=== PATIENT | male | born 1980 | race Caucasian/White ===

== ENCOUNTER 2017-08-18 03:42 | Inpatient (IN) | payer BC, OTHER ==
[2017-08-18] VITALS (58 sets, daily range): BP systolic 116–184; BP diastolic 64–111
[~2017-08-18] VITALS: Ht 165.1 cm; Wt 103.0 kg
[~2017-08-18 03:42] MED LIST: ACEBUTOLOL HCL200 MG PO; AMLODIPINE BESYL5 MG PO; CLONIDINE HCL0.1 MG PO; DOXYCYCLINE HY100 MG PO; GLIMEPIRIDE2 MG PO; IRBESARTAN-HCT1 EAC1 PO; LEVAQUIN500 MG PO; LOSARTAN POTAS100 MG PO; METFORMIN HCL500 MG PO; MULTI-VITAMIN1 EACH PO; TRICOR145 MG PO; VITAMIN D2000 UNIT PO
[2017-08-18] MEDS ORDERED: SODIUM CHLORIDE 0.9% 1000ML 1,000 ML IV STA (03:48)
[2017-08-18] MEDS ORDERED: HYDRALAZINE HCL 20 MG/ML VIAL IV STA (03:54)
[2017-08-18] MEDS ORDERED: ASPIRIN 81 MG CHEW TAB PO ONE (04:00)
[2017-08-18] MEDS ORDERED: METOPROLOL TARTRATE INJ 1 MG/ML VIAL ONE (04:12)
[2017-08-18] MEDS ORDERED: ACETAMINOPHEN 325 MG TAB ONE (04:13)
[2017-08-18] MEDS ORDERED: METOPROLOL TARTRATE INJ 1 MG/ML VIAL IV ONE (04:15)
[2017-08-18] MEDS ORDERED: ACETAMINOPHEN 325 MG TAB PO ONE (04:15)
[2017-08-18 04:21] LABS: BASOPHILS # (AUTO) 0.1 (0.0-0.1); BASOPHILS % 0.4 % (0.0-1.0); EOSINOPHILS # (AUTO) 0.1 (0.0-0.4); EOSINOPHILS % 0.7 % (0.0-6.0); HEMATOCRIT 33.8 % (38.2-49.6); HEMOGLOBIN 12.4 g/dL (14.0-18.0); LYMPHOCYTES # (AUTO) 1.1 (1.0-3.2); LYMPHOCYTES % 8.9 % (18.0-39.1); MEAN CORPUSCULAR HEMOGLOBIN 31.4 pg (28-32); MEAN CORPUSCULAR HGB CONC 36.7 g/dL (31-35); MEAN CORPUSCULAR VOLUME 85.6 fL (81-99); MONOCYTES # (AUTO) 0.5 (0.2-0.8); MONOCYTES % 3.9 % (4.4-11.3); NEUTROPHILS # (AUTO) 10.4 (2.1-6.9); NEUTROPHILS % 85.7 % (38.7-80.0); PLATELET COUNT 158 x10e3/uL (140-360); RED BLOOD COUNT 3.95 x10e6/uL (4.3-5.7); RED CELL DISTRIBUTION WIDTH 13.5 % (11.7-14.4)
[2017-08-18 04:25] LABS: ALBUMIN 3.2 g/dL (3.5-5.0); ALBUMIN/GLOBULIN RATIO 0.5 (0.8-2.0); ANION GAP 18.1 mmol/L (8-16); CALCIUM 9.2 mg/dL (8.4-10.2); CREATININE, SERUM 1.98 mg/dL (0.72-1.25); POTASSIUM 4.1 mmol/L (3.5-5.1)
[2017-08-18 04:31] LABS: CREATINE KINASE MB 0.9 ng/mL (0-5.0)
[2017-08-18 04:37] LABS: ABG HCO3 23 mmol/L (23-28); ABG PCO2 33 mmHg (41-51); ABG PH 7.45 (7.31-7.41); ABG PO2 64 mmHg (80-105)
[2017-08-18 05:20] LABS: COLOR,URINE YELLOW (YELLOW)
[2017-08-18 05:21] LABS: BILIRUBIN,URINE NEGATIVE (NEGATIVE); CLARITY,URINE CLEAR (CLEAR); KETONES,URINE NEGATIVE (NEGATIVE); LEUKOCYTE ESTERASE ,URINE NEGATIVE (NEGATIVE); NITRITE,URINE NEGATIVE (NEGATIVE); PROTEIN,URINE DIPSTICK 3+ (NEGATIVE); URINE UROBILINOGEN 0.2 mg/dL (0.2 - 1)
--- NOTE | 2017-08-18 05:21 | Diagnostic Imaging Report ---
EXAMINATION: CHEST SINGLE (PORTABLE) INDICATION: Hyperglycemia COMPARISON: 01/20/2017 FINDINGS: TUBES and LINES: None. LUNGS: Lungs are well inflated. Lungs are clear. There is no evidence of pneumonia or pulmonary edema. PLEURA: No pleural effusion or pneumothorax. HEART AND MEDIASTINUM: The cardiomediastinal silhouette is unremarkable. BONES AND SOFT TISSUES: No acute osseous lesion. Soft tissues are unremarkable. UPPER ABDOMEN: No free air under the diaphragm. IMPRESSION: No acute thoracic abnormality. Signed by: Dr. Cuba Smith M.D. on 08/18/2017 5:18 AM
[2017-08-18 05:23] LABS: EPITHELIAL CELLS,URINE FEW /LPF; RBC,URINE 0-5 /HPF (0-5); WBC,URINE (MAN) 0-5 /HPF (0-5)
[2017-08-18] MEDS ORDERED: SODIUM CHLORIDE 0.9% 1000ML 1,000 ML IV SCH (05:30)
[2017-08-18] MEDS ORDERED: DEXTROSE 5%/0.45% SOD CHL 1,000 ML IV SCH (06:48)
[2017-08-18] MEDS ORDERED: POTASSIUM CHLORIDE 20MEQ/100ML 200 ML IV PRN (07:00)
[2017-08-18] MEDS ORDERED: INSULIN DETEMIR 100 UNIT/ML PEN SQ PRN (07:00)
--- NOTE | 2017-08-18 07:11 | Diagnostic Imaging Report ---
EXAM: CT Abdomen and Pelvis WITH contrast INDICATION: Abdominal pain COMPARISON: None. TECHNIQUE: Abdomen and pelvis were scanned utilizing a multidetector helical scanner from the lung base to the pubic symphysis after administration of IV contrast. Coronal and sagittal reformations were obtained. Routine protocol was performed. Scan was performed when during portal venous phase. IV CONTRAST: 100 mL of Isovue-370 ORAL CONTRAST: Water RADIATION DOSE: Total DLP: 812.15 mGy*cm Estimated effective dose: (DLP x 0.015 x size factor) mSv COMPLICATIONS: None FINDINGS: LINES and TUBES: None. LOWER THORAX: Unremarkable HEPATOBILIARY: The liver is diffuse hypodense compared to the spleen, consistent with diffuse hepatic diffuse hepatic steatosis. No focal hepatic lesions. No biliary ductal dilation. GALLBLADDER: No radio-opaque stones or sludge. No wall thickening. SPLEEN: No splenomegaly. PANCREAS: No focal masses or ductal dilatation. ADRENALS: No adrenal nodules KIDNEYS/URETERS: Kidneys enhance symmetrically. No hydronephrosis. No cystic or solid mass lesions. No stones. GI TRACT: No abnormal distention, wall thickening, or evidence of bowel obstruction. Appendix is normal. PELVIC ORGANS/BLADDER: Unremarkable. LYMPH NODES: No lymphadenopathy. VESSELS: Unremarkable. PERITONEUM / RETROPERITONEUM: No free air or fluid. BONES: Unremarkable. SOFT TISSUES: Umbilical fat-containing hernia best seen on series 2, image 52 IMPRESSION: 1. No evidence of acute intra-abdominal or pelvic abnormality. 2. Fat-containing umbilical hernia. 3. Diffuse hepatic steatosis. Signed by: Dr. Cuba Smith M.D. on 08/18/2017 7:07 AM
[2017-08-18] MEDS ORDERED: SODIUM CHLORIDE 0.9% 50ML 50 ML ONE (07:12)
[2017-08-18] MEDS ORDERED: IOPAMIDOL 370 MG/ML 200 ML INFUS..BTL INJ ONE (07:12)
[2017-08-18] MEDS: SODIUM CHLORIDE 0.9% 1000ML 1,000 ML IV SCH ×2 (07:27→10:55)
[2017-08-18] MEDS ORDERED: CEFTRIAXONE SOD 1 GM VIAL IV SCH (07:30)
[2017-08-18] MEDS ORDERED: INSULIN REGULAR, HUMAN 3ML VL 100 UNIT in SODIUM CHLORIDE 0.9% 99 ML IV SCH ×2 (07:45)
[2017-08-18 09:06] LABS: ANION GAP 14.3 mmol/L (8-16); CALCIUM 8.4 mg/dL (8.4-10.2); CREATININE, SERUM 1.77 mg/dL (0.72-1.25); MAGNESIUM 1.6 MG/DL (1.3-2.1); POTASSIUM 3.3 mmol/L (3.5-5.1)
[2017-08-18] MEDS ORDERED: POTASSIUM CHLORIDE 20 MEQ TAB CR PO NR (11:00)
[2017-08-18] MEDS: ACETAMINOPHEN 325 MG TAB PO PRN ×3 (12:00→23:51)
[2017-08-18] MEDS ORDERED: ACETAMINOPHEN 325 MG TAB PO PRN (12:15)
[2017-08-18 12:50] LABS: ANION GAP 14.6 mmol/L (8-16); CALCIUM 8.4 mg/dL (8.4-10.2); CREATININE, SERUM 1.77 mg/dL (0.72-1.25); MAGNESIUM 1.6 MG/DL (1.3-2.1); POTASSIUM 3.6 mmol/L (3.5-5.1)
[2017-08-18] MEDS ORDERED: DEXTROSE 50% SYRINGE 50 ML IV PRN (14:00)
[2017-08-18] MEDS: INSULIN REGULAR, HUMAN 3ML VL 100 UNIT in SODIUM CHLORIDE 0.45% 100 ML 100 ML IV SCH ×2 (14:20)
[2017-08-18 14:26] LABS: CREATINE KINASE MB 0.5 ng/mL (0-5.0)
[2017-08-18] MEDS ORDERED: MAGNESIUM SULF 1GRAM/DEXTROSE 100 ML IV ONE (14:34)
[2017-08-18] MEDS: MAGNESIUM SULF 1GRAM/DEXTROSE 100 ML IV PRN (14:40)
[2017-08-18 14:41] LABS: FREE T4 (FREE THYROXINE) 0.97 ng/dL (0.9-1.8); THYROID STIMULATING HORMONE 1.782 uIU/mL (0.350-4.940)
--- NOTE | 2017-08-18 14:41 | Consultation ---
DATE OF CONSULTATION: August 18, 2017 ENDOCRINE CONSULTATION Thank you very much for referring this patient. This is a 37-year-old white male gentleman who is a known diabetic for almost 5 years and takes oral hypoglycemics at home. He was on insulin in the past and he had a similar episode of nausea and vomiting about 6 months back. This time the patient came to the hospital because of chest pain and nausea. On further evaluation, his blood sugar was 390 and anion gap was slightly elevated. His lactic acid level was also high. The patient tells me that he was lately all right and after dropping his daughter, he came home and he started having nausea and chest pain and reported to the emergency room. He has history of hypertension and hyperlipidemia. The patient takes a combination of oral hypoglycemics, glimepiride and the metformin at home. PHYSICAL EXAMINATION: GENERAL: Today, the patient is alert, awake and a little bit apprehensive. He is moderate to morbidly obese. VITAL SIGNS: Around 100. Blood pressure is 155 x 90 mmHg. HEENT: Essentially unremarkable. NECK: Thyroid is palpable. Clinically, he is near euthyroid. CHEST: Bilateral vesicular breathing. He has mild bronchospasm. CARDIAC: Both 1st and 2nd heart sounds. There is no 3rd or 4th heart sound. Ejection sound is grade 2/6. The patient also has mild pedal edema. CLINICAL IMPRESSION: 1. Diabetes mellitus type 2, uncontrolled with complications. 2. Mild diabetic ketoacidosis. 3. Hypertension. 4. Hyperlipidemia. PLAN: The plan at this time is to taper off the insulin drip slowly. His lactic acid levels are also elevated. The plan at this time is to taper off the insulin drip slowly and also start him on the subcutaneous insulin and cut down the IV fluids. Thanks for referring this patient. I will following this patient with you. Job#: [id number]
[2017-08-18] MEDS ORDERED: ONDANSETRON HCL INJ 2 MG/ML VIAL IV ONE (16:37)
[2017-08-18] MEDS ORDERED: ONDANSETRON HCL INJ 2 MG/ML VIAL ONE (16:40)
[2017-08-18] MEDS ORDERED: AMLODIPINE BESYLATE 5 MG TAB PO SCH (16:45)
[2017-08-18 16:55] LABS: ANION GAP 12.8 mmol/L (8-16); CALCIUM 8.6 mg/dL (8.4-10.2); CREATININE, SERUM 1.81 mg/dL (0.72-1.25); MAGNESIUM 1.7 MG/DL (1.3-2.1); POTASSIUM 3.8 mmol/L (3.5-5.1)
[2017-08-18] MEDS ORDERED: INSULIN DETEMIR 100 UNIT/ML PEN SQ SCH (17:00)
[2017-08-18 19:16] LABS: CREATINE KINASE MB 0.4 ng/mL (0-5.0)
[2017-08-18] MEDS: VANCOMYCIN 1GM/NS 250 ML 250 ML IV SCH (21:00)
[2017-08-18] MEDS: CEFEPIME HCL 1 GM VIAL IV SCH (21:00)
[2017-08-18 21:17] LABS: ANION GAP 12.5 mmol/L (8-16); CALCIUM 8.3 mg/dL (8.4-10.2); CREATININE, SERUM 1.81 mg/dL (0.72-1.25); MAGNESIUM 1.4 MG/DL (1.3-2.1); POTASSIUM 3.5 mmol/L (3.5-5.1)
--- NOTE | 2017-08-18 21:39 | Consultation ---
DATE OF CONSULTATION: August 18, 2017 CARDIOLOGY CONSULTATION REFERRING PHYSICIAN: Dr. Aguilar. REASON FOR CONSULTATION: Tachycardia, hypertension, chest pain. HISTORY OF PRESENT ILLNESS: This is a 37-year-old man with a history of obesity, diabetes mellitus on oral hypoglycemics, hyperlipidemia, prior episode of cellulitis, who presented to the emergency department with nausea, vomiting, chest discomfort and elevated glucose levels. Patient states that he had his daughter yesterday and after having a birthday green party returned her to the daughter's mother. He was concerned with getting his daughter back home promptly and forgot to take some of his medications. He states that he ate [place] food, then later on that evening developed abdominal discomfort, nausea with subsequent vomiting and an unwell feeling which prompted him to seek medical attention. Patient states also that he developed left-sided pain around the collarbone area, occasionally worse with exertion, better with rest, worse with certain movements. He also states that he gets occasional right-sided pain which he describes as a sharp needle-like pain which is occasionally worse with exertion at home. He has no prior cardiac testing or history of myocardial infarctions, heart failure, valvular heart disease or arrhythmias. He does not smoke, and his family members do not have premature coronary artery disease. Upon arrival here, the patient was noted to be hyperglycemic with mild diabetic ketoacidosis, and his left lower extremity was treated for cellulitis. REVIEW OF SYSTEMS: A 12-point review of systems was conducted as negative otherwise as above in HPI. PAST MEDICAL HISTORY: Hypertension, hyperlipidemia, diabetes mellitus, obesity. PAST SURGICAL HISTORY: No significant recent surgeries. FAMILY HISTORY: No premature CAD or sudden cardiac . SOCIAL HISTORY: No illicit drug use, alcohol use, tobacco use. ALLERGIES: NO KNOWN DRUG ALLERGIES. MEDICATIONS: Please see medication reconciliation form. Patient currently on acebutolol, amlodipine, glimepiride, irbesartan, hydrochlorothiazide. PHYSICAL EXAMINATION VITAL SIGNS: Heart rate is 118. Respirations are 18. Blood pressure is 131/87. Oxygen saturation 100% on room air. Temperature is 100.7. GENERALLY: He is a well-appearing obese man lying comfortably in bed. HEAD: Normocephalic, atraumatic. EYES: The extraocular muscles are intact. Conjunctiva is clear. NECK: No jugular venous distention. No bruits. CARDIOVASCULAR: He is tachycardic, regular rhythm. No murmurs. LUNGS: Clear to auscultation bilaterally. No wheezing, no rales. ABDOMEN: Soft, nontender, nondistended. Normoactive bowel sounds. EXTREMITIES: No clubbing, cyanosis, and there is 1+ pitting edema. SKIN: There is erythema over the left lower extremity. NEUROLOGIC: No focal deficits noted. Cranial nerves grossly intact. PSYCHIATRIC: Normal mood and affect. All laboratory data were reviewed, show a sodium 137, potassium of 3.6, creatinine of 1.77, glucose of 131. Troponin I is 0.033. TSH is 1.7. White blood cell count is 12.18, hemoglobin is 12.4. ABGs showed a pH of 7.45. Urinalysis showed protein and glucose. A 12-lead electrocardiogram showed sinus tachycardia. Chest x-ray showed no acute cardiopulmonary abnormalities. CT of the abdomen and pelvis showed no acute intra-abdominal or pelvic abnormality, a fat-containing umbilical hernia and a diffuse hepatic steatosis. IMPRESSION/RECOMMENDATIONS 1. Diabetic ketoacidosis. Patient was started on insulin infusion with correction of his anion gap. Treatment per Endocrinology and primary team. 2. Hypertensive urgency. The patient presented with systolic blood pressures greater than 200. He is on multiple-antihypertensive regimen at home. Will avoid his angiotensin-receptor tian and diuretic at this point in time given acute kidney injury. We can titrate amlodipine and beta blockers for better heart rate control and blood pressure lowering effect. 3. Hyperlipidemia. Will check a lipid panel and start statin medications if indicated. 4. Abnormal electrocardiogram. Patient's electrocardiogram showed sinus tachycardia. Will continue to treat fever and diabetic ketoacidosis. Will also restart his beta tian therapies as he is able to tolerate. 5. Diabetes mellitus. Treatment per primary team. 6. Obesity. Patient will likely need extensive nutrition support, diet and exercise for weight loss. 7. Precordial pain. Patient has atypical symptoms of chest pain. One set of cardiac enzymes was within normal limits, and his 12-lead electrocardiogram showed sinus tachycardia. Once his heart rate is better controlled, will check an echocardiogram whether inpatient versus outpatient. Patient likely will need an outpatient stress test if his cardiac enzymes remain within normal limits. I would like to thank Dr. Aguilar for allowing me to assist in Mr. Alonso's care. Will restart antihypertensives, which will be nonnephrotoxic. Will consider checking an echocardiogram once his heart rate is improved. Job#: [id number] EV
[2017-08-19] VITALS (82 sets, daily range): BP systolic 119–175; BP diastolic 57–125
[2017-08-19] MEDS: DEXTROSE 5%/0.45% SOD CHL 1,000 ML IV SCH ×3 (01:00→19:52)
[2017-08-19] MEDS: ACETAMINOPHEN 325 MG TAB PO PRN ×2 (04:06→19:43)
[2017-08-19] MEDS ORDERED: ENOXAPARIN SODIUM INJ 100 MG/ML SYR SC ONE (05:00)
[2017-08-19] MEDS: ENOXAPARIN SODIUM INJ 100 MG/ML SYR SC SCH ×2 (05:20→19:52)
[2017-08-19 05:50] LABS: BASOPHILS % 0.3 % (0.0-1.0); EOSINOPHILS % 0.2 % (0.0-6.0); HEMATOCRIT 31.3 % (38.2-49.6); LYMPHOCYTES # (AUTO) 0.6 (1.0-3.2); LYMPHOCYTES % 6.1 % (18.0-39.1); MEAN CORPUSCULAR HEMOGLOBIN 30.7 pg (28-32); MEAN CORPUSCULAR HGB CONC 35.1 g/dL (31-35); MEAN CORPUSCULAR VOLUME 87.4 fL (81-99); MONOCYTES # (AUTO) 0.6 (0.2-0.8); MONOCYTES % 6.3 % (4.4-11.3); NEUTROPHILS # (AUTO) 8.2 (2.1-6.9); NEUTROPHILS % 86.7 % (38.7-80.0); PLATELET COUNT 132 x10e3/uL (140-360); RED BLOOD COUNT 3.58 x10e6/uL (4.3-5.7); RED CELL DISTRIBUTION WIDTH 13.6 % (11.7-14.4)
[2017-08-19 06:19] LABS: ALBUMIN 2.2 g/dL (3.5-5.0); ALBUMIN/GLOBULIN RATIO 0.6 (0.8-2.0); ANION GAP 10.4 mmol/L (8-16); CALCIUM 8.5 mg/dL (8.4-10.2); CREATININE, SERUM 1.92 mg/dL (0.72-1.25); POTASSIUM 3.4 mmol/L (3.5-5.1)
[2017-08-19] MEDS ORDERED: MAGNESIUM SULF 1GRAM/DEXTROSE 100 ML IV ONE (06:43)
[2017-08-19] MEDS: MAGNESIUM SULF 1GRAM/DEXTROSE 100 ML IV PRN (06:46)
[2017-08-19 06:59] LABS: CREATINE KINASE MB 0.4 ng/mL (0-5.0)
[2017-08-19] MEDS: VANCOMYCIN 1GM/NS 250 ML 250 ML IV SCH ×2 (08:30→20:37)
[2017-08-19] MEDS: CEFEPIME HCL 1 GM VIAL IV SCH ×2 (08:30→19:52)
[2017-08-19] MEDS: AMLODIPINE BESYLATE 10 MG TAB PO SCH (13:34)
[2017-08-19] MEDS: METOPROLOL TARTRATE 25 MG TAB PO SCH ×2 (17:20→20:26)
[2017-08-19] MEDS: INSULIN DETEMIR 100 UNIT/ML PEN SQ SCH (17:30)
[2017-08-19] MEDS: LABETALOL HCL 5 MG/ML 20ML VIAL IV PRN (17:32)
[2017-08-19] MEDS ORDERED: HYDROCODONE/APAP 5MG-325MG TAB PO ONE (20:30)
[2017-08-19] MEDS: INSULIN REGULAR, HUMAN 3ML VL 100 UNIT in SODIUM CHLORIDE 0.45% 100 ML 100 ML IV SCH ×2 (23:21)
[2017-08-19] MEDS: HYDROCODONE/APAP 5MG-325MG TAB PO PRN (23:23)
[2017-08-19] MEDS ORDERED: ONDANSETRON HCL INJ 2 MG/ML VIAL IV PRN (23:30)
[2017-08-20] VITALS (25 sets, daily range): BP systolic 116–163; BP diastolic 73–107
[2017-08-20] MEDS: LABETALOL HCL 5 MG/ML 20ML VIAL IV PRN (02:19)
[2017-08-20] MEDS: DEXTROSE 5%/0.45% SOD CHL 1,000 ML IV SCH ×2 (05:14→11:45)
[2017-08-20] MEDS: HYDROCODONE/APAP 5MG-325MG TAB PO PRN (05:14)
[2017-08-20 06:30] LABS: ANION GAP 12.4 mmol/L (8-16); CALCIUM 8.6 mg/dL (8.4-10.2); CREATININE, SERUM 1.77 mg/dL (0.72-1.25); POTASSIUM 3.4 mmol/L (3.5-5.1)
[2017-08-20 07:41] LABS: BASOPHILS % 0.6 % (0.0-1.0); EOSINOPHILS # (AUTO) 0.1 (0.0-0.4); EOSINOPHILS % 1.3 % (0.0-6.0); HEMATOCRIT 31.4 % (38.2-49.6); HEMOGLOBIN 11.1 g/dL (14.0-18.0); LYMPHOCYTES # (AUTO) 1.2 (1.0-3.2); MEAN CORPUSCULAR HEMOGLOBIN 30.7 pg (28-32); MEAN CORPUSCULAR HGB CONC 35.4 g/dL (31-35); MONOCYTES # (AUTO) 0.6 (0.2-0.8); MONOCYTES % 8.2 % (4.4-11.3); NEUTROPHILS # (AUTO) 5.3 (2.1-6.9); NEUTROPHILS % 73.6 % (38.7-80.0); PLATELET COUNT 142 x10e3/uL (140-360); RED BLOOD COUNT 3.61 x10e6/uL (4.3-5.7); RED CELL DISTRIBUTION WIDTH 13.7 % (11.7-14.4)
[2017-08-20] MEDS: CEFEPIME HCL 1 GM VIAL IV SCH ×2 (08:22→20:55)
[2017-08-20] MEDS: VANCOMYCIN 1GM/NS 250 ML 250 ML IV SCH (08:22)
[2017-08-20] MEDS: METOPROLOL TARTRATE 25 MG TAB PO SCH ×3 (09:00→20:56)
[2017-08-20] MEDS: AMLODIPINE BESYLATE 10 MG TAB PO SCH (09:38)
[2017-08-20] MEDS: ENOXAPARIN SODIUM INJ 100 MG/ML SYR SC SCH ×2 (09:38→20:58)
[2017-08-20] MEDS: INSULIN DETEMIR 100 UNIT/ML PEN SQ SCH ×2 (09:39→16:42)
[2017-08-20] MEDS ORDERED: INSULIN LISPRO 100 UNIT/1 ML 3ML VIAL SQ ONE (13:45)
--- NOTE | 2017-08-20 14:18 | Consultation ---
DATE OF CONSULTATION: REASON FOR CONSULTATION: Cellulitis of the leg and sepsis present on admission secondary to cellulitis of the leg. Mr. Garcia, who is a very pleasant 57-year-old white male with a history of diabetes mellitus, history of obesity, hyperlipidemia, history cellulitis before comes in with a 1-day history of not feeling well, fever and chills. The patient came to the emergency room. He was admitted on August 18, 2017. Patient has been on antibiotics since then. He was telling me yesterday, which was August 19, 2017, continued to have fever and chills, but today he started feeling a little bit better. His blood cultures have been negative. He said his leg is red and swollen, but he thinks it is better today also. PAST MEDICAL HISTORY: Diabetes mellitus, hypertension and obesity. PAST SURGICAL HISTORY: Denies. ALLERGIES: NKA. SOCIAL HISTORY: There is no smoking, drug abuse or alcohol abuse. FAMILY HISTORY: Hypertension and diabetes. REVIEW OF SYSTEMS HEENT: Negative. PULMONARY: Negative. CARDIAC: Negative. : Negative. GI: Negative. PHYSICAL EXAMINATION GENERAL: He is currently alert and oriented. Does not seem in acute distress. VITALS: Stable. Currently afebrile. HEENT: Nonicteric. NECK: Supple. CHEST: Clear. HEART: S1 and S2. No murmur. ABDOMEN: Soft. Bowel sounds present. No tenderness. EXTREMITIES: The left leg has erythema and edema from the ankle all the way to above the knee. Lab data reviewed. White count on admission was 12.18, hemoglobin 12. Sodium 134, potassium 3.4, creatinine 1.77, glucose 194. IMPRESSION 1. Sepsis, present on admission: Source is cellulitis of the leg. Pathogen is unknown, probably streptococcus or staphylococcus,. 2. Acute kidney injury: Probably underlying chronic kidney disease. 3. Diabetes mellitus. 4. Obesity. Agree with vancomycin. The trough was low, but I am concerned about his kidney function. Will continue with the current dose and obtain vancomycin trough. He is also on cefepime. Will recheck CBC. Recheck Chem panel. Will follow. Job#: [id number] RI
[2017-08-20] MEDS: INSULIN LISPRO 100 UNIT/1 ML 3ML VIAL SQ SCH ×3 (16:41→20:58)
[2017-08-20] MEDS: VANCOMYCIN HCL 1.5 GM in SODIUM CHLORIDE 0.9% 250ML 300 ML IV SCH (21:21)
[2017-08-21] VITALS (7 sets, daily range): BP systolic 129–157; BP diastolic 87–102
[2017-08-21] MEDS: DEXTROSE 5%/0.45% SOD CHL 1,000 ML IV SCH ×3 (01:38→15:14)
[2017-08-21] MEDS: INSULIN DETEMIR 100 UNIT/ML PEN SQ SCH ×2 (08:03→16:08)
[2017-08-21] MEDS: INSULIN LISPRO 100 UNIT/1 ML 3ML VIAL SQ SCH ×7 (08:03→21:00)
[2017-08-21] MEDS: VANCOMYCIN HCL 1.5 GM in SODIUM CHLORIDE 0.9% 250ML 300 ML IV SCH ×2 (09:01→21:00)
[2017-08-21] MEDS: ENOXAPARIN SODIUM INJ 100 MG/ML SYR SC SCH ×3 (09:01→23:54)
[2017-08-21] MEDS: CEFEPIME HCL 1 GM VIAL IV SCH ×2 (09:01→21:00)
[2017-08-21] MEDS: METOPROLOL TARTRATE 25 MG TAB PO SCH ×2 (09:01→21:00)
[2017-08-21] MEDS: AMLODIPINE BESYLATE 10 MG TAB PO SCH (09:02)
[2017-08-21 14:30] LABS: ANION GAP 11.6 mmol/L (8-16); CALCIUM 9.6 mg/dL (8.4-10.2); CREATININE, SERUM 1.81 mg/dL (0.72-1.25); POTASSIUM 3.6 mmol/L (3.5-5.1)
[2017-08-22] VITALS (10 sets, daily range): BP systolic 125–161; BP diastolic 64–102
[2017-08-22] MEDS: DEXTROSE 5%/0.45% SOD CHL 1,000 ML IV SCH ×3 (02:50→22:30)
[2017-08-22] MEDS: INSULIN LISPRO 100 UNIT/1 ML 3ML VIAL SQ SCH ×7 (07:30→20:30)
[2017-08-22] MEDS: METOPROLOL TARTRATE 25 MG TAB PO SCH ×2 (08:36→20:02)
[2017-08-22] MEDS: CEFEPIME HCL 1 GM VIAL IV SCH ×2 (08:36→20:02)
[2017-08-22] MEDS: AMLODIPINE BESYLATE 10 MG TAB PO SCH (08:36)
[2017-08-22] MEDS: ENOXAPARIN SODIUM INJ 100 MG/ML SYR SC SCH ×3 (08:36→20:20)
[2017-08-22] MEDS: INSULIN DETEMIR 100 UNIT/ML PEN SQ SCH ×2 (08:38→20:30)
[2017-08-22] MEDS: VANCOMYCIN HCL 1.5 GM in SODIUM CHLORIDE 0.9% 250ML 300 ML IV SCH ×2 (11:30→20:03)
--- NOTE | 2017-08-22 11:31 | Diagnostic Imaging Report ---
PROCEDURE: A single AP view of the chest. COMPARISON: Chest radiograph 08/18/2017 INDICATIONS: PICC LINE PLACEMENT FINDINGS: Lines/tubes: Left upper extremity PICC with tip projecting over the cavoatrial junction. Lungs: The lungs are well inflated and clear. There is no evidence of pneumonia or pulmonary edema. Pleura: There is no pleural effusion or pneumothorax. Heart and mediastinum: The heart and the mediastinum are unremarkable. Bones: No acute bony abnormality. IMPRESSION: 1. Left upper extremity PICC with tip projecting over the cavoatrial junction. 2. No acute cardiopulmonary disease. Dictated by: Donavon Olvera M.D. on 08/22/2017 at 11:35 Electronically approved by: Donavon Olvera M.D. on 08/22/2017 at 11:35
[2017-08-22] MEDS ORDERED: INSULIN DETEMIR 100 UNIT/ML PEN SQ SCH (17:00)
[2017-08-22] MEDS: LABETALOL HCL 5 MG/ML 20ML VIAL IV PRN ×2 (17:36→23:47)
[2017-08-23] VITALS (7 sets, daily range): BP systolic 124–151; BP diastolic 66–97
[2017-08-23] MEDS: INSULIN DETEMIR 100 UNIT/ML PEN SQ SCH ×2 (08:20→20:39)
[2017-08-23] MEDS: INSULIN LISPRO 100 UNIT/1 ML 3ML VIAL SQ SCH ×7 (08:20→20:39)
[2017-08-23] MEDS: CEFEPIME HCL 1 GM VIAL IV SCH ×2 (08:21→20:30)
[2017-08-23] MEDS: METOPROLOL TARTRATE 25 MG TAB PO SCH ×2 (08:21→20:38)
[2017-08-23] MEDS: AMLODIPINE BESYLATE 10 MG TAB PO SCH (08:22)
[2017-08-23] MEDS: DEXTROSE 5%/0.45% SOD CHL 1,000 ML IV SCH (08:22)
[2017-08-23] MEDS: ENOXAPARIN SODIUM INJ 100 MG/ML SYR SC SCH (08:23)
[2017-08-23] MEDS: VANCOMYCIN HCL 1.5 GM in SODIUM CHLORIDE 0.9% 250ML 300 ML IV SCH ×2 (09:13→20:37)
[2017-08-23] MEDS: METRONIDAZOLE 500MG/NS 100ML 100 ML IV SCH ×2 (14:09→22:47)
[2017-08-23] MEDS ORDERED: DOCUSATE SODIU100 MG PO (14:54)
[2017-08-23] MEDS ORDERED: CLONIDINE HCL0.1 MG PO (14:54)
[2017-08-23] MEDS ORDERED: ASPIR 8181 MG (14:54)
[2017-08-23] MEDS ORDERED: CALCIUM CARBON500 MG PO (14:54)
[2017-08-23] MEDS ORDERED: DILANTIN100 MG (14:54)
[2017-08-23] MEDS ORDERED: BUMETANIDE1 MG PO (14:54)
[2017-08-23] MEDS ORDERED: LEVETIRACETAM500 MG (14:54)
[2017-08-23] MEDS ORDERED: CLOPIDOGREL75 MG PO (14:54)
[2017-08-23] MEDS ORDERED: FLECTOR1 EACH (14:54)
[2017-08-23] MEDS ORDERED: LABETALOL HCL200 MG PO (14:54)
[2017-08-23] MEDS ORDERED: CALCIUM ACETAT667 MG PO (14:54)
[2017-08-23] MEDS ORDERED: KEPPRA500 MG PO (14:54)
[2017-08-23] MEDS ORDERED: ATORVASTATIN CA10 MG PO (14:54)
[2017-08-23] MEDS ORDERED: HYDRALAZINE HCL10 MG PO (14:54)
[2017-08-23] MEDS ORDERED: LOSARTAN POTAS100 MG PO (15:04)
[2017-08-23] MEDS ORDERED: METOLAZONE5 MG PO (15:04)
[2017-08-23] MEDS ORDERED: LORAZEPAM0.5 MG PO (15:04)
[2017-08-23] MEDS ORDERED: PEPCID20 MG (15:04)
[2017-08-23] MEDS ORDERED: NOVOLOG100 UNITS1 (15:04)
[2017-08-23] MEDS ORDERED: OXYCODONE HCL20 M1 PO (15:04)
[2017-08-23] MEDS ORDERED: TRANSDERM-SCOP1 EACH TD (15:04)
[2017-08-23] MEDS ORDERED: ZOFRAN ODT4 MG (15:04)
[2017-08-23] MEDS ORDERED: MILK OF MA2400 MG/10 (15:04)
[2017-08-24] VITALS: BP 185/96
[2017-08-24] MEDS: LABETALOL HCL 5 MG/ML 20ML VIAL IV PRN (01:07)
[2017-08-24 04:00] VITALS: BP 132/75
[2017-08-24 05:47] LABS: BASOPHILS # (AUTO) 0.1 (0.0-0.1); EOSINOPHILS # (AUTO) 0.2 (0.0-0.4); HEMATOCRIT 30.9 % (38.2-49.6); HEMOGLOBIN 10.8 g/dL (14.0-18.0); LYMPHOCYTES # (AUTO) 1.5 (1.0-3.2); LYMPHOCYTES % 18.7 % (18.0-39.1); MEAN CORPUSCULAR HEMOGLOBIN 30.6 pg (28-32); MEAN CORPUSCULAR VOLUME 87.5 fL (81-99); MONOCYTES # (AUTO) 0.5 (0.2-0.8); MONOCYTES % 6.5 % (4.4-11.3); NEUTROPHILS # (AUTO) 5.2 (2.1-6.9); NEUTROPHILS % 66.9 % (38.7-80.0); PLATELET COUNT 218 x10e3/uL (140-360); RED BLOOD COUNT 3.53 x10e6/uL (4.3-5.7); RED CELL DISTRIBUTION WIDTH 13.2 % (11.7-14.4)
[2017-08-24] MEDS: METRONIDAZOLE 500MG/NS 100ML 100 ML IV SCH (05:58)
[2017-08-24 06:16] LABS: ALBUMIN 2.2 g/dL (3.5-5.0); ALBUMIN/GLOBULIN RATIO 0.6 (0.8-2.0); ANION GAP 12.5 mmol/L (8-16); CALCIUM 8.8 mg/dL (8.4-10.2); CREATININE, SERUM 1.58 mg/dL (0.72-1.25); MAGNESIUM 1.5 MG/DL (1.3-2.1); POTASSIUM 3.5 mmol/L (3.5-5.1)
[2017-08-24] MEDS: INSULIN LISPRO 100 UNIT/1 ML 3ML VIAL SQ SCH ×4 (08:00→12:00)
[2017-08-24 08:17] LABS: LYMPHOCYTES % (MANUAL) 18 % (19-48); MONOCYTES % (MANUAL) 5 % (3.4-9.0); NEUTROPHILS % (MANUAL) 77 % (40-74); PLATELET ESTIMATE ADEQUATE; PLATELET MORPHOLOGY COMMENT NORMAL; RBC MORPHOLOGY COMMENT NORMAL
[2017-08-24] MEDS: VANCOMYCIN HCL 1.5 GM in SODIUM CHLORIDE 0.9% 250ML 300 ML IV SCH (08:42)
[2017-08-24] MEDS: INSULIN DETEMIR 100 UNIT/ML PEN SQ SCH (09:00)
[2017-08-24] MEDS: AMLODIPINE BESYLATE 10 MG TAB PO SCH (09:12)
[2017-08-24] MEDS: CEFEPIME HCL 1 GM VIAL IV SCH (09:12)
[2017-08-24] MEDS: METOPROLOL TARTRATE 25 MG TAB PO SCH (09:12)
[2017-08-24 10:09] VITALS: BP 160/98
--- NOTE | 2017-08-24 11:37 | Discharge Summary ---
ADMIT DIAGNOSES 1. Diabetic ketoacidosis. 2. Sepsis secondary to left leg cellulitis. 3. Obesity with body mass index of 37. 4. Hypertensive heart disease. 5. [id number]-nrmpefi renal failure. DISCHARGE DIAGNOSES 1. Sepsis secondary to left leg cellulitis, resolved. 2. Left leg cellulitis, resolving. 3. Oydci-mm-atygoyo renal failure, resolved. 4. Diabetic ketoacidosis, resolved. 5. Type 2 diabetes mellitus. 6. Stage 3 chronic kidney disease (glomerular filtration rate 49 mL/min). 7. Hypertensive heart disease. 8. Obesity with body mass index of 37. HOSPITAL COURSE: This is a 37-year-old white man who was initially admitted to [facility] with a diagnosis of sepsis secondary to left lower leg cellulitis. During this hospitalization he was also diagnosed with diabetic ketoacidosis that was thought to be precipitated from the left lower leg cellulitis. During this hospitalization the patient improved dramatically in regards to his sepsis with intravenous antibiotics, namely metronidazole, cefepime and vancomycin, which he tolerated quite well. The patient's initial BUN and creatinine were 18 and 1.98 respectively. On the day of discharge the patient's BUN and creatinine were 16 and 1.58 respectively. Patient's diabetic ketoacidosis resolved with intravenous fluids and intravenous insulin. The patient was seen by an assisted living administrator during this hospitalization, namely Dr. Danielson. During this hospitalization the patient was also seen by a child care giver, namely Dr. Demetri Baldwin, because of his diabetic ketoacidosis and elevated blood pressure readings. The patient underwent serial cardiac enzymes as well as electrocardiograms that did not reveal any evidence of acute myocardial infarction or ischemia. Patient's hospitalization was unremarkable. The patient was seen by an infectious disease specialist, namely Dr. Daley, for his sepsis secondary to left lower leg cellulitis. During this hospitalization patient had a left upper extremity peripherally inserted central catheter placed for long-term intravenous antibiotic therapy. During this hospitalization patient was found to have a hemoglobin A1c of 9.2%. Patient's condition on discharge was stable. DISCHARGE MEDICATIONS 1. Vancomycin 1 g intravenous every 12 hours for 14 more days. 2. Amlodipine 10 mg daily. 3. Metoprolol tartrate 25 mg b.i.d. 4. Levemir insulin 40 units in the morning and 32 units at night. 5. Humalog insulin 20 units t.i.d. with meals. FOLLOWUP INSTRUCTIONS: The patient will follow up with Dr. Daley tomorrow where outpatient intravenous vancomycin therapy will be arranged. Patient is instructed to follow up with his primary care physician, namely Dr. Ashok Silvestre or with myself, Dr. Lu Alvarado, within the next 2 to 3 weeks. LU ALVARADO MD Job#: [id number] EV cc:MD DAYNE ZAPATA MD BENJAMIN METZ, DO PAUL J. BOONE, MD
[2017-08-24] MEDS ORDERED: POTASSIUM CHLORIDE 10 MEQ TABCR PO ONE (12:00)
[2017-08-24 12:17] VITALS: BP 135/88
[2017-08-24] MEDS ORDERED: AMLODIPINE BESY10 MG PO (13:23)
[2017-08-24] MEDS ORDERED: METOPROLOL TART25 MG PO (13:24)
[2017-08-24 13:48] VITALS: BP 135/88
== END 2017-08-24 15:08 | disposition home or self-care (01) | DRG 871 ==
LOC: ER 03:42 → UNDOADMIN 07:09 → ERHOLD 07:09 → ICU 08:51 → ERHOLD 08:51 → IMCU 08-20 13:22 → MED/SURG2 08-23 21:32
PROC: 02HV33Z Insertion of Infusion Device into Superior Vena Cava, Percutaneous Approach (ICD-10-PCS; principal; 2017-08-22)
DX: A41.9 Sepsis, unspecified organism (principal); E11.10 Type 2 diabetes mellitus with ketoacidosis without coma; L03.116 Cellulitis of left lower limb; L03.115 Cellulitis of right lower limb; N17.9 Acute kidney failure, unspecified; Z68.41 Body mass index [BMI] 40.0-44.9, adult; I13.10 Hypertensive heart and chronic kidney disease without heart failure, with stage 1 through stage 4 chronic kidney disease, or unspecified chronic kidney disease; R65.20 Severe sepsis without septic shock; I25.10 Atherosclerotic heart disease of native coronary artery without angina pectoris; E78.5 Hyperlipidemia, unspecified; I16.0 Hypertensive urgency; Z79.84 Long term (current) use of oral hypoglycemic drugs; R00.0 Tachycardia, unspecified; R07.2 Precordial pain; E11.22 Type 2 diabetes mellitus with diabetic chronic kidney disease; N18.3 Chronic kidney disease, stage 3 (moderate); E66.01 Morbid (severe) obesity due to excess calories
CPT/HCPCS: 36415; 36569; 36600; 71045; 74177; 80048; 80053; 80202; 81001; 82550; 82553; 82805; 82948; 83036; 83605; 83690; 83735; 84439; 84443; 84484; 85025; 87040; 87086; 93005; 93925; 93970; 96361; 96366; 96367; 96372; 96374; 96375; 96376; 99284; J0692; J0696; J1650; J2405; J3370; J3475; J7030; J7050; Q9967

== ENCOUNTER 2018-03-03 09:20 | Inpatient (IN) | payer BC, OTHER ==
[~2018-03-03] VITALS: Ht 165.1 cm; Wt 105.7 kg
[~2018-03-03 09:20] MED LIST changes: +AMLODIPINE BESY10 MG PO; +ASPIR 8181 MG; +ATORVASTATIN CA10 MG PO; +BUMETANIDE1 MG PO; +CALCIUM ACETAT667 MG PO; +CALCIUM CARBON500 MG PO; +CLOPIDOGREL75 MG PO; +DILANTIN100 MG; +DOCUSATE SODIU100 MG PO; +FLECTOR1 EACH; +HYDRALAZINE HCL10 MG PO; +KEPPRA500 MG PO; +LABETALOL HCL200 MG PO; +LEVETIRACETAM500 MG; +LORAZEPAM0.5 MG PO; +METOLAZONE5 MG PO; +METOPROLOL TART25 MG PO; +MILK OF MA2400 MG/10; +NOVOLOG100 UNITS1; +OXYCODONE HCL20 M1 PO; +PEPCID20 MG; +TRANSDERM-SCOP1 EACH TD; +ZOFRAN ODT4 MG
[2018-03-03] MEDS ORDERED: SODIUM CHLORIDE 0.9% 1000ML 1,000 ML IV STA ×2 (09:37→10:22)
[2018-03-03] MEDS ORDERED: ONDANSETRON HCL INJ 2MG/ML 2ML 2 MG/ML VIAL IV STA ×2 (09:47→10:22)
[2018-03-03] MEDS ORDERED: ONDANSETRON HCL INJ 2MG/ML 2ML 2 MG/ML VIAL ONE (09:48)
[2018-03-03 10:06] LABS: BASOPHILS % 0.3 % (0.0-1.0); EOSINOPHILS # (AUTO) 0.1 (0.0-0.4); EOSINOPHILS % 0.7 % (0.0-6.0); LYMPHOCYTES # (AUTO) 0.6 (1.0-3.2); LYMPHOCYTES % 5.3 % (18.0-39.1); MEAN CORPUSCULAR HEMOGLOBIN 29.9 pg (28-32); MEAN CORPUSCULAR VOLUME 85.5 fL (81-99); MONOCYTES # (AUTO) 0.2 (0.2-0.8); MONOCYTES % 1.6 % (4.4-11.3); NEUTROPHILS # (AUTO) 10.3 (2.1-6.9); NEUTROPHILS % 91.7 % (38.7-80.0); PLATELET COUNT 228 x10e3/uL (140-360); RED BLOOD COUNT 4.68 x10e6/uL (4.3-5.7); RED CELL DISTRIBUTION WIDTH 13.2 % (11.7-14.4)
[2018-03-03] MEDS ORDERED: MORPHINE SULFATE INJ 4 MG/ML INJ 1ML IV STA (10:22)
[2018-03-03 10:23] LABS: ANION GAP 16.6 mmol/L (8-16); CALCIUM 9.2 mg/dL (8.4-10.2); CREATININE, SERUM 2.54 mg/dL (0.72-1.25); POTASSIUM 3.6 mmol/L (3.5-5.1)
[2018-03-03] MEDS ORDERED: CLINDAMYCIN PHOS 900MG/ 50ML 50 ML IV ONE (10:30)
[2018-03-03] MEDS ORDERED: LEVEMIR100 UNIT/1 SQ (11:00)
[2018-03-03] MEDS ORDERED: HUMALOG100 UNIT/3 SQ (11:00)
[2018-03-03] MEDS ORDERED: ACETAMINOPHEN 325 MG TAB PO ONE (11:00)
[2018-03-03] MEDS ORDERED: PRAVASTATIN SOD80 MG PO (11:03)
[2018-03-03] MEDS ORDERED: TIZANIDINE HCL4 MG PO (11:03)
[2018-03-03] MEDS ORDERED: TRICOR145 MG PO (11:03)
[2018-03-03] MEDS ORDERED: VANCOMYCIN 1GM/NS 250 ML 250 ML IV ONE (12:30)
[2018-03-03] MEDS ORDERED: HYDROMORPHONE 1MG/1ML INJ IV PRN (13:30)
[2018-03-03] MEDS ORDERED: ONDANSETRON HCL INJ 2MG/ML 2ML 2 MG/ML VIAL IV PRN (13:30)
[2018-03-03] MEDS ORDERED: DEXTROSE 50% SYRINGE 50 ML IV PRN (13:30)
[2018-03-03] MEDS ORDERED: VANCOMYCIN 500MG/NS 0.9% 100ML 100 ML IV SCH (13:30)
[2018-03-03 13:33] LABS: BAND NEUTROPHILS % (MANUAL) 5 %; EOSINOPHILS % (MANUAL) 2 % (0-7); LYMPHOCYTES % (MANUAL) 8 % (19-48); MONOCYTES % (MANUAL) 6 % (3.4-9.0); NEUTROPHILS % (MANUAL) 79 % (40-74)
[2018-03-03 13:34] LABS: PLATELET ESTIMATE ADEQUATE; PLATELET MORPHOLOGY COMMENT FEW GIANT; RBC MORPHOLOGY COMMENT NORMAL
--- NOTE | 2018-03-03 14:13 | NUR ---
DR. COLEY HERE TO SHERRIE PARRISH.
--- NOTE | 2018-03-03 15:08 | NUR ---
NATHAN FROM LAB CALLED TO REPORT CRITICAL LACTIC ACID 22.8. INFORMED DR. CALDWELL WELL PRIMARY NURSE, JITENDRA LIMA.
[2018-03-03 15:09] LABS: FREE T4 (FREE THYROXINE) 0.88 ng/dL (0.9-1.8); THYROID STIMULATING HORMONE 1.701 uIU/mL (0.350-4.940)
[2018-03-03] MEDS: SODIUM CHLORIDE 0.9% 1000ML 1,000 ML IV SCH ×2 (15:16→23:30)
--- NOTE | 2018-03-03 15:51 | NUR ---
Patient arrived to the floor via wheelchair from the ER. He is awake alert and oriented x3. Oriented him to the room and explained how to use the call light, he verbalized understanding, call light in reach , will continue with admission.
--- NOTE | 2018-03-03 16:03 | Consultation ---
DATE OF CONSULTATION: March 03, 2018 ENDOCRINE CONSULTATION This is a patient of Dr. Toan Aguilar. Thank you very much for referring this patient. HISTORY OF PRESENT ILLNESS: This is a 37-year-old white gentleman who is known to me from his previous hospital admission. At this time the patient came to the hospital with history of high-grade fever, chills, and swelling and redness of the left leg which is getting progressively worse. The patient is admitted into the hospital for further evaluation. Patient is a known diabetic for almost 10-plus years. Has multiple complications related to diabetes including severe diabetic sensorimotor neuropathy. He takes about 30 units of Lantus twice a day and Humalog about 20 three times a day depending upon his blood sugars. At the time of admission, his blood sugars have been in the ranges of 280, 228 to 300. His BUN and creatinine are elevated at 23 and 2.54, and his white count is elevated at 11.1. PHYSICAL EXAMINATION: GENERAL: Today the patient is alert, awake, a little bit apprehensive. He is moderately overweight. VITAL SIGNS: His heart rate is around 78. Blood pressure 140/80 mmHg. HEENT: Examination essentially unremarkable. Thyroid is palpable. Clinically he is near euthyroid. CHEST: Bilateral vesicular breathing. He has mild bronchospasm. CARDIAC: Both 1st and 2nd heart sounds. There is no 3rd or 4th heart sound. Ejection sound grade 2/6. EXTREMITIES: Patient has cellulitis of the left leg and the thigh. CLINICAL IMPRESSION: 1. Diabetes mellitus type 2, uncontrolled with complications. 2. Cellulitis of the left leg. 3. Obesity. 4. Chronic renal insufficiency. The plan at this time is to do a hemoglobin A1c, thyroid function test. Monitor his blood sugars closely and adjust the insulin dose. Thanks for referring this patient. I will be following this patient with you. Job#: [id number] EV
[2018-03-03 16:08] VITALS: BP 134/82
[2018-03-03] MEDS ORDERED: INSULIN LISPRO 100 UNIT/1 ML 3ML VIAL SQ SCH (16:30)
[2018-03-03] MEDS ORDERED: INSULIN REGULAR, HUMAN 100 UNIT/1 ML 3ML VIAL SQ SCH (16:30)
[2018-03-03] MEDS: INSULIN DETEMIR 100 UNIT/ML PEN SQ SCH (17:40)
[2018-03-03] MEDS: ACETAMINOPHEN 325 MG TAB PO PRN ×2 (17:40→21:00)
[2018-03-03] MEDS: INSULIN LISPRO 100 UNIT/1 ML 3ML VIAL SQ SCH ×3 (17:40→21:00)
[2018-03-03 17:52] LABS: AMPHETAMINES SCREEN,URINE NEGATIVE (NEGATIVE); BENZODIAZEPINES SCREEN,URINE NEGATIVE (NEGATIVE); CLARITY,URINE SL CLOUDY (CLEAR); COLOR,URINE YELLOW (YELLOW); LEUKOCYTE ESTERASE ,URINE NEGATIVE (NEGATIVE); NITRITE,URINE NEGATIVE (NEGATIVE); PHENCYCLIDINE SCREEN,URINE NEGATIVE (NEGATIVE); PROTEIN,URINE DIPSTICK 2+ (NEGATIVE)
[2018-03-03 17:53] LABS: BILIRUBIN,URINE NEGATIVE (NEGATIVE); KETONES,URINE NEGATIVE (NEGATIVE); URINE UROBILINOGEN 0.2 mg/dL (0.2 - 1)
[2018-03-03 18:13] LABS: AMORPHOUS SEDIMENT,URINE MODERATE (FEW); EPITHELIAL CELLS,URINE FEW /LPF
[2018-03-03 18:23] VITALS: BP 134/82
[2018-03-03 20:00] VITALS: BP 159/93
--- NOTE | 2018-03-03 20:14 | NUR ---
RECEIVED PT IN BED AOX3 .RESPIRATIONS ARE EVEN AND UNLABORED .PT LEFT LEG SWOLLEN AND RED .C/O PAIN AT RT GROIN AND RT LOWER LEG .CONTINUE TO MONITOR
[2018-03-03] MEDS: HYDROMORPHONE 2MG/ML 2 MG/ML ML IV PRN (21:16)
[2018-03-04] VITALS (8 sets, daily range): BP systolic 134–172; BP diastolic 79–98
[2018-03-04] MEDS: ACETAMINOPHEN 325 MG TAB PO PRN ×2 (03:11→20:12)
[2018-03-04] MEDS: SODIUM CHLORIDE 0.9% 1000ML 1,000 ML IV SCH ×2 (05:20→22:40)
[2018-03-04 05:44] LABS: BASOPHILS # (AUTO) 0.1 (0.0-0.1); BASOPHILS % 0.3 % (0.0-1.0); HEMATOCRIT 34.4 % (38.2-49.6); LYMPHOCYTES # (AUTO) 0.5 (1.0-3.2); LYMPHOCYTES % 3.3 % (18.0-39.1); MEAN CORPUSCULAR HEMOGLOBIN 29.5 pg (28-32); MEAN CORPUSCULAR HGB CONC 33.4 g/dL (31-35); MEAN CORPUSCULAR VOLUME 88.2 fL (81-99); MONOCYTES # (AUTO) 0.5 (0.2-0.8); MONOCYTES % 3.5 % (4.4-11.3); NEUTROPHILS # (AUTO) 13.6 (2.1-6.9); PLATELET COUNT 146 x10e3/uL (140-360); RED CELL DISTRIBUTION WIDTH 14.1 % (11.7-14.4)
[2018-03-04 06:04] LABS: ANION GAP 14.7 mmol/L (8-16); CALCIUM 8.3 mg/dL (8.4-10.2); CREATININE, SERUM 2.57 mg/dL (0.72-1.25); POTASSIUM 3.7 mmol/L (3.5-5.1)
[2018-03-04 06:14] LABS: HEMOGLOBIN 11.5 g/dL (14.0-18.0)
--- NOTE | 2018-03-04 07:17 | NUR ---
PT RESTING .DENIES PAIN .FAMILY AT THE BEDSIDE .CONTINUE TO MONITOR
[2018-03-04] MEDS: INSULIN LISPRO 100 UNIT/1 ML 3ML VIAL SQ SCH ×7 (07:30→21:00)
--- NOTE | 2018-03-04 07:30 | NUR ---
RECEIVED PATIENT RESTING IN BED. NO ACUTE DISTRESS NOTED. CALL LIGHT WITHIN REACH. BED IN THE LOWEST POSITION.
[2018-03-04] MEDS: INSULIN DETEMIR 100 UNIT/ML PEN SQ SCH ×2 (08:58→21:00)
[2018-03-04] MEDS: HYDROMORPHONE 2MG/ML 2 MG/ML ML IV PRN ×3 (10:00→22:00)
[2018-03-04] MEDS: VANCOMYCIN 500MG/NS 0.9% 100ML 100 ML IV SCH ×2 (11:36)
[2018-03-04] MEDS ORDERED: TIZANIDINE HCL 4 MG TAB PO PRN (14:30)
[2018-03-04] MEDS: CEFEPIME 1GM/NS 0.9% 50 ML 50 ML IV SCH (14:38)
[2018-03-04] MEDS: METOPROLOL TARTRATE 25 MG TAB PO SCH (16:29)
[2018-03-04] MEDS ORDERED: INSULIN DETEMIR 30 UNIT SQ SCH (17:00)
[2018-03-04] MEDS ORDERED: NON-FORMULARY MEDICATION (Insulin Lispro (Humalog) 20 UNIT) SQ SCH (17:00)
[2018-03-04] MEDS ORDERED: INSULIN DETEMIR 100 UNIT/ML PEN SQ SCH (17:00)
--- NOTE | 2018-03-04 19:27 | NUR ---
REPORT GIVEN TO ONCOMING NURSE. PATIENT IS IN RESTING IN BED. RESPIRATIONS EVEN AND UNLABORED, NO ACUTE DISTRESS NOTED. CALL LIGHT WITHIN REACH. BED IN THE LOWEST POSITION.
--- NOTE | 2018-03-04 20:00 | NUR ---
RECEIVED PT IN BEDAOX3 .PT HAS FEVER .RESPIRATIONS ARE EVEN AND UNLABORED .CALL LIGHT WITH IN REACH .CONTINUE TO MONITOR
--- NOTE | 2018-03-04 20:12 | NUR ---
GIVEN TYLENOL 650 MG FOR TEMPERATURE .DR HALE CONSULTED DR FITZGERALD FOR SEPSIS AND PT IS ON ABT .CONTINUE TO MONITOR
[2018-03-04] MEDS: SIMVASTATIN 40 MG TAB PO SCH (21:57)
[2018-03-05] VITALS (8 sets, daily range): BP systolic 122–194; BP diastolic 76–92
[2018-03-05] MEDS: SODIUM CHLORIDE 0.9% 1000ML 1,000 ML IV SCH ×3 (01:19→23:00)
[2018-03-05] MEDS: CEFEPIME 1GM/NS 0.9% 50 ML 50 ML IV SCH ×2 (02:30→14:26)
[2018-03-05 06:00] LABS: BASOPHILS % 0.3 % (0.0-1.0); EOSINOPHILS % 0.1 % (0.0-6.0); HEMATOCRIT 34.4 % (38.2-49.6); HEMOGLOBIN 11.7 g/dL (14.0-18.0); LYMPHOCYTES # (AUTO) 0.7 (1.0-3.2); LYMPHOCYTES % 5.5 % (18.0-39.1); MEAN CORPUSCULAR HEMOGLOBIN 30.3 pg (28-32); MEAN CORPUSCULAR VOLUME 89.1 fL (81-99); MONOCYTES # (AUTO) 0.6 (0.2-0.8); MONOCYTES % 5.2 % (4.4-11.3); NEUTROPHILS # (AUTO) 10.8 (2.1-6.9); NEUTROPHILS % 88.2 % (38.7-80.0); PLATELET COUNT 163 x10e3/uL (140-360); RED BLOOD COUNT 3.86 x10e6/uL (4.3-5.7); RED CELL DISTRIBUTION WIDTH 13.9 % (11.7-14.4)
[2018-03-05] MEDS: HYDROMORPHONE 2MG/ML 2 MG/ML ML IV PRN ×3 (06:24→21:30)
[2018-03-05 06:32] LABS: ANION GAP 12.5 mmol/L (8-16); CALCIUM 9.1 mg/dL (8.4-10.2); CREATININE, SERUM 2.63 mg/dL (0.72-1.25); POTASSIUM 3.5 mmol/L (3.5-5.1)
--- NOTE | 2018-03-05 07:20 | NUR ---
RECEIVED PATIENT RESTING IN BED. NO ACUTE DISTRESS NOTED. CALL LIGHT WITHIN REACH. BED IN THE LOWEST POSITION.
--- NOTE | 2018-03-05 07:21 | NUR ---
TEMPERATURE IS 100.2 GIVEN TYLENOL .PT C/O PAIN GIVEN DILAUDID .FAMILY AT THE BEDSIDE .REPORT GIVEN TO THE ON COMING NURSE .
[2018-03-05] MEDS: INSULIN LISPRO 100 UNIT/1 ML 3ML VIAL SQ SCH ×7 (07:30→21:00)
[2018-03-05] MEDS: AMLODIPINE BESYLATE 10 MG TAB PO SCH (08:52)
[2018-03-05] MEDS: METOPROLOL TARTRATE 25 MG TAB PO SCH ×2 (08:52→17:12)
[2018-03-05] MEDS: ASPIRIN 81 MG CHEW TAB PO SCH (08:52)
[2018-03-05] MEDS: FENOFIBRATE 145 MG TAB PO SCH (08:52)
[2018-03-05] MEDS: INSULIN DETEMIR 100 UNIT/ML PEN SQ SCH ×2 (09:00→21:00)
--- NOTE | 2018-03-05 11:49 | NUR ---
NOTIFIED FERN BOTELLO FOR DR. FITZGERALD OF [facility] TROUGH OF 9.8. NO NEW ORDERS RECEIVED.
[2018-03-05] MEDS: VANCOMYCIN 500MG/NS 0.9% 100ML 100 ML IV SCH ×2 (11:59)
[2018-03-05] MEDS: ACETAMINOPHEN 325 MG TAB PO PRN (17:12)
--- NOTE | 2018-03-05 19:22 | NUR ---
REPORT GIVEN TO ONCOMING NURSE. PATIENT IS RESTING IN BED. NO ACUTE DISTRESS NOTED. DENIES PAIN OR DISCOMFORT. CALL LIGHT WITHIN REACH. BED IN THE LOWEST POSITION.
--- NOTE | 2018-03-05 19:31 | NUR ---
patient recieved awake, alert, lying quietly in bed. vss. no c/o pain noted. left leg remains elevated on pillow at this time. ivf continue to infuse without difficulty. pm assessment complete. patient instructed to call for assistance when needed.
[2018-03-05] MEDS: SIMVASTATIN 40 MG TAB PO SCH (21:00)
[2018-03-06] VITALS (7 sets, daily range): BP systolic 110–169; BP diastolic 75–94
[2018-03-06] MEDS: ACETAMINOPHEN 325 MG TAB PO PRN ×2 (00:32→23:12)
--- NOTE | 2018-03-06 00:32 | NUR ---
patient medicated with tylenol 650 mg po for temp 101.5. no further c/o pain noted at this time.
[2018-03-06] MEDS: CEFEPIME 1GM/NS 0.9% 50 ML 50 ML IV SCH ×2 (02:30→14:09)
[2018-03-06] MEDS: HYDROMORPHONE 2MG/ML 2 MG/ML ML IV PRN ×3 (06:50→23:12)
[2018-03-06] MEDS: INSULIN LISPRO 100 UNIT/1 ML 3ML VIAL SQ SCH ×7 (07:30→20:47)
--- NOTE | 2018-03-06 07:39 | NUR ---
PT IN BED ALERT AND AWAKE NO DISTRESS NOTED
[2018-03-06] MEDS: METOPROLOL TARTRATE 25 MG TAB PO SCH ×2 (09:00→17:03)
[2018-03-06] MEDS: ASPIRIN 81 MG CHEW TAB PO SCH (09:00)
[2018-03-06] MEDS: AMLODIPINE BESYLATE 10 MG TAB PO SCH (09:00)
[2018-03-06] MEDS: FENOFIBRATE 145 MG TAB PO SCH (09:01)
[2018-03-06] MEDS: INSULIN DETEMIR 100 UNIT/ML PEN SQ SCH ×2 (09:06→20:48)
--- NOTE | 2018-03-06 11:09 | Progress Note ---
DATE: March 06, 2018 ADDENDUM: INTERNAL MEDICINE PROGRESS NOTE DIAGNOSES 1. Chronic renal failure stage 3 to 4. 2. 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 3. Hyponatremia. 4. Leukocytosis. 5. Mild anemia. Job#: [id number] EV
--- NOTE | 2018-03-06 11:13 | Progress Note ---
DATE: March 06, 2018 INTERNAL MEDICINE PROGRESS NOTE SUBJECTIVE: The patient is doing well. Swelling has significantly decreased on the left leg. PHYSICAL EXAMINATION: Extremities show significantly decreased swelling on the left leg. Redness is slowly going away. Blood pressure 157/92. Temperature 99.3, heart rate 98 per minute. Respiratory rate 16 per minute. Oxygen saturation 94%. LABS: On the BMP, sodium 131, potassium 3.5, chloride 100, CO2 22, BUN 20, creatinine 2.63. Glucose 136. On the CBC, white blood count 12.2; hemoglobin 11.7; hematocrit 34.4; platelet count 163,000. FINAL IMPRESSION 1. Cellulitis and swelling on the left lower extremity. 2. History of coronary artery disease. 3. History of hypertension. 4. Diabetes mellitus, type 2, which is uncontrolled. PLAN OF TREATMENT: We are going to continue vancomycin 1 gram IV twice a day and cefepime 2 grams IV twice a day. He is taking sodium chloride which we are going to discontinue. Continue amlodipine 10 mg daily, Zanaflex 4 mg at bedtime, Dilaudid 1 mg IV q.3 h. as needed, Zofran 4 mg IV q.4 h. as needed, aspirin 81 mg daily. Continue Humalog 20 units with each meal. Continue monitoring blood sugar a.c. and h.s.. Metoprolol 25 mg twice a day, fenofibrate 145 mg daily, simvastatin 80 mg daily, Levemir 30 units twice a day. We are going to continue monitoring the patient carefully. Once the swelling and redness significantly decrease, then the patient might be able to go home. Venous Doppler came back negative for DVT. Job#: [id number]
[2018-03-06] MEDS: VANCOMYCIN 500MG/NS 0.9% 100ML 100 ML IV SCH ×3 (12:39→23:02)
[2018-03-06] MEDS: SODIUM CHLORIDE 0.9% 1000ML 1,000 ML IV SCH ×4 (12:40→23:12)
--- NOTE | 2018-03-06 15:07 | Consultation ---
DATE OF CONSULTATION: March 06, 2018 REASON FOR CONSULTATION: Cellulitis of the leg. This patient who is a very pleasant 37 year old with a history of obesity and diabetes mellitus comes in with redness and swelling of his left leg. No specific trauma or injury. The patient was admitted on March 03, 2018. He was started on IV cefepime and vancomycin with very slow progress. Infectious disease was asked to see the patient. Currently, the patient is laying in bed comfortably. PAST MEDICAL HISTORY: Obesity and diabetes mellitus. PAST SURGICAL HISTORY: Denied. ALLERGIES: NKA. REVIEW OF SYSTEMS HEENT: Negative. PULMONARY: Negative. CARDIAC: Negative. PHYSICAL EXAMINATION GENERAL: He is currently alert and oriented. Does not seem to be in acute distress. VITALS: Stable. Currently afebrile. HEENT: Not icteric. NECK: Supple. CHEST: Clear. HEART: No murmur. ABDOMEN: Soft. EXTREMITIES: He does have erythema and edema involving his left leg. IMPRESSION: Cellulitis. Very slow progress in the patient with diabetes and obesity. Doppler was ordered to rule out deep venous thrombosis. Apparently, it was negative. Agree with vancomycin. Agree with cefepime. Recheck CBC. Recheck Chem panel. Will keep him for a few more days on IVs and reassess. His clinical progress is he is feeling better. I agree with diabetic control. LORENZO FITZGERALD MD Job#: [id number] MD
--- NOTE | 2018-03-06 18:22 | NUR ---
PT IN BED NO DISTRESS NOTED. CONTINUE ON PAIN MANAGEMENT AND IV ANTIBIOTICS. NO S/S OF HYPO/HYPERGLYCEMIA NOTED.
--- NOTE | 2018-03-06 19:30 | NUR ---
patient recieved awake, alert, lying quietly in bed. vss. no c/o pain noted. ivf continue to infuse without difficulty. pm assessment complete. patient instructed to call for assistance when needed.
[2018-03-06] MEDS: SIMVASTATIN 40 MG TAB PO SCH (20:48)
[2018-03-07] VITALS (8 sets, daily range): BP systolic 143–177; BP diastolic 73–95
[2018-03-07] MEDS: CEFEPIME 1GM/NS 0.9% 50 ML 50 ML IV SCH ×2 (02:18→14:40)
--- NOTE | 2018-03-07 05:00 | NUR ---
patient appears to be resting quietly. ivf infusing without difficulty. no c/o pain noted at this time.
[2018-03-07 06:06] LABS: BASOPHILS % 0.7 % (0.0-1.0); EOSINOPHILS # (AUTO) 0.2 (0.0-0.4); EOSINOPHILS % 3.1 % (0.0-6.0); HEMATOCRIT 31.1 % (38.2-49.6); HEMOGLOBIN 10.5 g/dL (14.0-18.0); LYMPHOCYTES % 17.8 % (18.0-39.1); MEAN CORPUSCULAR HEMOGLOBIN 29.2 pg (28-32); MEAN CORPUSCULAR HGB CONC 33.8 g/dL (31-35); MEAN CORPUSCULAR VOLUME 86.6 fL (81-99); MONOCYTES # (AUTO) 0.6 (0.2-0.8); MONOCYTES % 10.2 % (4.4-11.3); NEUTROPHILS # (AUTO) 3.9 (2.1-6.9); NEUTROPHILS % 67.5 % (38.7-80.0); PLATELET COUNT 224 x10e3/uL (140-360); RED BLOOD COUNT 3.59 x10e6/uL (4.3-5.7); RED CELL DISTRIBUTION WIDTH 13.2 % (11.7-14.4)
[2018-03-07] MEDS: ASPIRIN 81 MG CHEW TAB PO SCH (08:45)
[2018-03-07] MEDS: METOPROLOL TARTRATE 25 MG TAB PO SCH ×2 (08:45→17:45)
[2018-03-07] MEDS: AMLODIPINE BESYLATE 10 MG TAB PO SCH (08:46)
[2018-03-07] MEDS: FENOFIBRATE 145 MG TAB PO SCH (08:46)
[2018-03-07] MEDS: INSULIN LISPRO 100 UNIT/1 ML 3ML VIAL SQ SCH ×7 (08:52→21:00)
[2018-03-07] MEDS: INSULIN DETEMIR 100 UNIT/ML PEN SQ SCH ×2 (08:53→21:00)
[2018-03-07] MEDS: VANCOMYCIN 500MG/NS 0.9% 100ML 100 ML IV SCH (13:02)
[2018-03-07] MEDS: SODIUM CHLORIDE 0.9% 1000ML 1,000 ML IV SCH ×3 (13:20→21:20)
--- NOTE | 2018-03-07 15:49 | Progress Note ---
DATE: March 07, 2018 INTERNAL MEDICINE PROGRESS NOTE SUBJECTIVE: He is doing well. The redness on the leg is gone. PHYSICAL EXAM VITAL SIGNS: Blood pressure 143/77, temperature 98.2, heart rate 84 per minute, respiratory rate 18 per minute, oxygen saturation 95%. HEART: Regular rhythm. Normal S1, S2 sounds. LUNGS: Clear bilaterally. EXTREMITIES: Show swelling on the left leg, but redness is completely gone. LABS: On the BMP; sodium 131, potassium 3.5, chloride 100, CO2 of 22, BUN 20, creatinine 2.63, glucose 136. On the CBC; white blood count 5.80, hemoglobin 10.5, hematocrit 31.1, platelet count 284,000. FINAL IMPRESSION 1. Cellulitis on the left leg. 2. Uncontrolled diabetes mellitus type 2, with renal insufficiency. 3. Chronic renal insufficiency, stage 3. 4. Anemia of chronic disease. PLAN OF TREATMENT: We are going to continue on vancomycin 1 gram twice a day and cefepime 2 grams IV twice a day. We are going to discontinue the IV fluids. Continue amlodipine 10 mg daily, tizanidine 4 mg at bedtime, Dilaudid 1 mg IV q.3 hours as needed, aspirin 81 mg daily, fenofibrate 145 mg daily. Continue metoprolol 25 mg twice a day. Continue Levemir 30 units twice a day, simvastatin 80 mg daily, and Humalog 17 units 3 times a day. Tentative discharge tomorrow as long as he is doing well. Job#: [id number] CLAU
--- NOTE | 2018-03-07 18:21 | NUR ---
PT IN BED ALERT AND ORIENTED X4, DENIES PAIN AND NO DISTRESS NOTED. CONTINUE ON IV ANTIBIOTICS
--- NOTE | 2018-03-07 19:10 | NUR ---
REPORT RECEIVED FROM OFF GOING NURSE, PT RESTING IN BED ALERT AND ORIENTED, NO DISTRESS NOTED, DENIES NEEDS, IV INFUSING PER ORDER, CALL LIGHT IN REACH, INSTRUCTED TO CALL WITH NEEDS, AT BEDSIDE
[2018-03-07] MEDS: SIMVASTATIN 40 MG TAB PO SCH (21:00)
[2018-03-07] MEDS: HYDROMORPHONE 2MG/ML 2 MG/ML ML IV PRN (21:11)
[2018-03-07] MEDS: ACETAMINOPHEN 325 MG TAB PO PRN (21:12)
[2018-03-08] VITALS (7 sets, daily range): BP systolic 137–162; BP diastolic 67–99
[2018-03-08] MEDS: VANCOMYCIN 500MG/NS 0.9% 100ML 100 ML IV SCH ×2 (00:15→12:40)
[2018-03-08] MEDS: CEFEPIME 1GM/NS 0.9% 50 ML 50 ML IV SCH ×2 (01:40→14:40)
[2018-03-08] MEDS: SODIUM CHLORIDE 0.9% 1000ML 1,000 ML IV SCH (05:20)
--- NOTE | 2018-03-08 05:38 | NUR ---
PT RESTING IN BED ALERT AND ORIENTED, IN BED WITH PT, NO DISTRESS NOTED, IV INFUSING PER ORDER, INSTRUCTED TO CALL WITH NEEDS, CALL LIGHT IN REACH
[2018-03-08] MEDS: AMLODIPINE BESYLATE 10 MG TAB PO SCH (06:09)
[2018-03-08] MEDS: METOPROLOL TARTRATE 25 MG TAB PO SCH ×2 (06:09→17:04)
[2018-03-08] MEDS: INSULIN DETEMIR 100 UNIT/ML PEN SQ SCH (08:47)
[2018-03-08] MEDS: HYDROMORPHONE 2MG/ML 2 MG/ML ML IV PRN (08:47)
[2018-03-08] MEDS: FENOFIBRATE 145 MG TAB PO SCH (08:47)
[2018-03-08] MEDS: ASPIRIN 81 MG CHEW TAB PO SCH (08:47)
[2018-03-08] MEDS: INSULIN LISPRO 100 UNIT/1 ML 3ML VIAL SQ SCH ×5 (08:47→16:30)
--- NOTE | 2018-03-08 14:15 | NUR ---
Visit made by the Spiritual Care Department Pastoral Visitor, Carmen Rojo. PV provided pastoral presence, hospitality, and supportive listening. Pastoral Visitor informed pt/family of the scope of [facility] and availability. SEPIDEH FRANCO [employer] Spiritual Care Department O: [phone] Pager: [phone] ([phone] number calling from)
--- NOTE | 2018-03-08 18:44 | NUR ---
PT DISCHARGED HOME WITH PRESCRIPTIONS EXCLUDING ANTIBIOTICS. DR FITZGERALD TO CALL IN PRESCRIPTIONS TO PT PHARMACY. THIS SEAMER OPERATOR CALLED INTO THE ANSWERING SERVICE PT NAMES,DATE OF AND PHARMACY NUMBER REQUESTED BY DR FITZGERALD. IV D/C ,SITE CLEAN AND NO REDNESS NOTED.LEFT VIA W/C ASSISTED BY STAFF TO PRIVATE AUTO.
--- NOTE | 2018-03-08 20:47 | Discharge Summary ---
HOSPITAL COURSE: The patient is a 37-year-old white male who had past medical history positive for hypertension, diabetes, hyperlipidemia, came here with redness and swelling of the left lower extremity. Patient was started on IV antibiotic. He is doing better. The redness has completely gone. Patient had been seen by Dr. Daley for infectious disease and Dr. Danielson for endocrinology. PHYSICAL EXAM VITAL SIGNS: Blood pressure 154/67, temperature 98.1, heart rate 66 per minute, respiratory rate is 20 per minute, oxygen saturation 96%. EXTREMITIES: Show decreased redness and swelling on the left lower extremities. LABS: On the BMP, sodium 139, potassium 3.5, chloride 100, CO2 of 22, BUN 20, creatinine 2.63, glucose of 136. On the CBC, white blood count 5.80, hemoglobin 10.5, hematocrit 31.1, platelet count 222,000. FINAL IMPRESSION 1. Cellulitis on the left leg. 2. Uncontrolled diabetes mellitus type 2 with chronic renal insufficiency. 3. Chronic renal failure stage 3. 4. Hypertension with chronic renal insufficiency. PLAN OF TREATMENT: The patient is going to be discharged on amlodipine 10 mg daily. Continue aspirin 81 mg daily, fenofibrate 145 mg daily, Zocor 80 mg daily, Levemir 30 units subcutaneously twice a day, and Humalog 14 units before meals. Antibiotic would be asked by Dr. Daley. Patient is going to followup with Dr. Ashok Silvestre, his primary care physician or any primary care. Job#: [id number] DANIA
[2018-03-08] MEDS ORDERED: INSULIN DETEMIR 100 UNIT/ML PEN SQ SCH (21:00)
== END 2018-03-08 18:32 | disposition home or self-care (01) | DRG 872 ==
LOC: ER 09:20 → ERHOLD 13:20 → MED/SURG3 15:24
DX: A41.9 Sepsis, unspecified organism (principal); L03.116 Cellulitis of left lower limb; E87.1 Hypo-osmolality and hyponatremia; E87.2 Acidosis; E11.65 Type 2 diabetes mellitus with hyperglycemia; E78.5 Hyperlipidemia, unspecified; M10.9 Gout, unspecified; E66.9 Obesity, unspecified; E11.22 Type 2 diabetes mellitus with diabetic chronic kidney disease; I12.9 Hypertensive chronic kidney disease with stage 1 through stage 4 chronic kidney disease, or unspecified chronic kidney disease; N18.3 Chronic kidney disease, stage 3 (moderate); D63.8 Anemia in other chronic diseases classified elsewhere; E11.42 Type 2 diabetes mellitus with diabetic polyneuropathy; Z79.4 Long term (current) use of insulin; I25.10 Atherosclerotic heart disease of native coronary artery without angina pectoris; Z68.37 Body mass index [BMI] 37.0-37.9, adult
CPT/HCPCS: 36415; 80048; 80202; 80307; 81001; 82948; 83036; 83605; 84439; 84443; 85025; 87040; 87400; 93971; 99284; J0692; J2270; J2405; J3370; J7030

== ENCOUNTER 2018-06-14 19:02 | Inpatient (IN) | payer OTHER ==
[~2018-06-14] VITALS: Ht 152.4 cm; Wt 106.1 kg
[~2018-06-14 19:02] MED LIST changes: +HUMALOG100 UNIT/3 SQ; +LEVEMIR100 UNIT/1 SQ; +PRAVASTATIN SOD80 MG PO; +TIZANIDINE HCL4 MG PO
[2018-06-14] MEDS ORDERED: CEFTRIAXONE SOD 1 GM/NS 50 ML 50 ML IV STA (19:14)
[2018-06-14] MEDS ORDERED: ACETAMINOPHEN 325 MG TAB PO ONE (19:30)
[2018-06-14] MEDS: MORPHINE SULFATE INJ 4 MG/ML INJ 1ML IV ONE (20:02)
[2018-06-14] MEDS: SODIUM CHLORIDE 0.9% 1000ML 1,000 ML IV STA (20:02)
[2018-06-14] MEDS: KETOROLAC TROMETHAMINE 30 MG/ML VIAL IV ONE ×2 (20:02→20:03)
[2018-06-14] MEDS: ACETAMINOPHEN 325 MG TAB PO ONE ×2 (20:02→20:03)
[2018-06-14 20:20] LABS: BASOPHILS # (AUTO) 0.1 (0.0-0.1); BASOPHILS % 0.4 % (0.0-1.0); EOSINOPHILS % 0.1 % (0.0-6.0); HEMATOCRIT 33.3 % (38.2-49.6); HEMOGLOBIN 11.8 g/dL (14.0-18.0); LYMPHOCYTES % 7.5 % (18.0-39.1); MEAN CORPUSCULAR HEMOGLOBIN 30.5 pg (28-32); MEAN CORPUSCULAR HGB CONC 35.4 g/dL (31-35); MONOCYTES # (AUTO) 0.7 (0.2-0.8); NEUTROPHILS # (AUTO) 11.1 (2.1-6.9); NEUTROPHILS % 86.5 % (38.7-80.0); PLATELET COUNT 209 x10e3/uL (140-360); RED BLOOD COUNT 3.87 x10e6/uL (4.3-5.7); RED CELL DISTRIBUTION WIDTH 13.4 % (11.7-14.4)
[2018-06-14 20:48] LABS: CLARITY,URINE CLEAR (CLEAR); COLOR,URINE YELLOW (YELLOW); LEUKOCYTE ESTERASE ,URINE NEGATIVE (NEGATIVE); NITRITE,URINE NEGATIVE (NEGATIVE); PROTEIN,URINE DIPSTICK 3+ (NEGATIVE)
[2018-06-14 20:49] LABS: BILIRUBIN,URINE NEGATIVE (NEGATIVE); KETONES,URINE NEGATIVE (NEGATIVE); URINE UROBILINOGEN 0.2 mg/dL (0.2 - 1)
[2018-06-14 20:49] LABS: ALBUMIN 2.8 g/dL (3.5-5.0); ALBUMIN/GLOBULIN RATIO 0.7 (0.8-2.0); ANION GAP 15.7 mmol/L (8-16); CALCIUM 9.5 mg/dL (8.4-10.2); CREATININE, SERUM 2.83 mg/dL (0.72-1.25); POTASSIUM 3.7 mmol/L (3.5-5.1)
[2018-06-14 21:15] LABS: BACTERIA,URINE RARE /HPF; RBC,URINE 0-5 /HPF (0-5); WBC,URINE (MAN) 0-5 /HPF (0-5)
--- NOTE | 2018-06-14 21:24 | Diagnostic Imaging Report ---
EXAM: CT Abdomen and Pelvis WITHOUT contrast INDICATION: Low back pain. Nausea and vomiting. Fever and chills. Dysuria. COMPARISON: 08/18/2017. TECHNIQUE: Abdomen and pelvis were scanned utilizing a multidetector helical scanner from the lung base to the pubic symphysis without administration of IV contrast. Absence of intravenous contrast decreases sensitivity for detection of focal lesions and vascular pathology. Coronal and sagittal reformations were obtained. Routine protocol was performed. IV CONTRAST: None. ORAL CONTRAST: Water RADIATION DOSE: Total DLP: 726.66 mGy*cm Estimated effective dose: (DLP x 0.015 x size factor) mSv COMPLICATIONS: None FINDINGS: LINES and TUBES: None. LOWER THORAX: Unremarkable HEPATOBILIARY: Hepatic steatosis. No focal hepatic lesions. No biliary ductal dilation. GALLBLADDER: No radio-opaque stones or sludge. No wall thickening. SPLEEN: No splenomegaly. PANCREAS: No focal masses or ductal dilatation. ADRENALS: No adrenal nodules KIDNEYS/URETERS: No hydronephrosis. No cystic or solid mass lesions. 1.5 mm obstructing calculus in the lower pole of the right kidney on image 84. Punctate nonobstructing calculus in the lower pole of the left kidney on image 81. Punctate nonobstructing calculus in the upper pole of the left kidney on images 60. GI TRACT: No abnormal distention, wall thickening, or evidence of bowel obstruction. There are diverticula within the colon without evidence of diverticulitis. Appendix is normal. PELVIC ORGANS/BLADDER: Unremarkable. LYMPH NODES: No lymphadenopathy. VESSELS: Unremarkable. PERITONEUM / RETROPERITONEUM: No free air or fluid. BONES: Unremarkable. SOFT TISSUES: Moderate size fat-containing umbilical hernia with sac estimated at 6.3 cm, and aperture estimated at 2.6 cm in transverse dimension. IMPRESSION: 1. Bilateral punctate nonobstructing calculi. No hydronephrosis. 2. Colonic diverticulosis without diverticulitis. 3. Hepatic steatosis. 4. Moderate size fat-containing umbilical hernia with sac estimated at 6.3 cm, and aperture estimated at 2.6 cm in transverse dimension. Signed by: Dr. Sandee Guzman M.D. on 06/14/2018 9:20 PM
[2018-06-14] MEDS ORDERED: SODIUM CHLORIDE FLUSH 10 ML SYR INJ PRN (21:45)
[2018-06-14] MEDS ORDERED: ONDANSETRON HCL INJ 2MG/ML 2ML 2 MG/ML VIAL IV PRN (21:45)
[2018-06-14] MEDS: SODIUM CHLORIDE 0.9% 1000ML 1,000 ML IV SCH (23:45)
[2018-06-14] MEDS: PIPERACILLIN/TAZOBAC 2.25 GM/SOD CHL 50 ML BAG IV SCH (23:45)
[2018-06-15] MEDS: VANCOMYCIN 1GM/NS 250 ML 250 ML IV SCH ×2 (00:17→23:30)
[2018-06-15 05:44] LABS: BASOPHILS % 0.5 % (0.0-1.0); EOSINOPHILS # (AUTO) 0.1 (0.0-0.4); EOSINOPHILS % 1.5 % (0.0-6.0); HEMATOCRIT 30.5 % (38.2-49.6); HEMOGLOBIN 10.6 g/dL (14.0-18.0); LYMPHOCYTES # (AUTO) 1.1 (1.0-3.2); LYMPHOCYTES % 18.2 % (18.0-39.1); MEAN CORPUSCULAR HEMOGLOBIN 30.3 pg (28-32); MEAN CORPUSCULAR HGB CONC 34.8 g/dL (31-35); MEAN CORPUSCULAR VOLUME 87.1 fL (81-99); MONOCYTES # (AUTO) 0.4 (0.2-0.8); MONOCYTES % 6.6 % (4.4-11.3); NEUTROPHILS # (AUTO) 4.5 (2.1-6.9); PLATELET COUNT 172 x10e3/uL (140-360); RED CELL DISTRIBUTION WIDTH 13.8 % (11.7-14.4)
[2018-06-15 06:05] LABS: ALBUMIN 2.2 g/dL (3.5-5.0); ALBUMIN/GLOBULIN RATIO 0.6 (0.8-2.0); ANION GAP 11.8 mmol/L (8-16); CALCIUM 8.6 mg/dL (8.4-10.2); CREATININE, SERUM 2.63 mg/dL (0.72-1.25); POTASSIUM 3.8 mmol/L (3.5-5.1)
[2018-06-15] MEDS: PIPERACILLIN/TAZOBAC 2.25 GM/SOD CHL 50 ML BAG IV SCH ×3 (06:13→21:43)
[2018-06-15] MEDS: SODIUM CHLORIDE 0.9% 1000ML 1,000 ML IV SCH ×2 (06:13→19:24)
--- NOTE | 2018-06-15 07:16 | NUR ---
report given to emmy luo
--- NOTE | 2018-06-15 07:17 | NUR ---
received report from off shoaib nurse. patient in room in hospital bed, resting quietly with eyes closed. arroused easily to name. no s/s of acute distress. resp even and nonlabored. pending room assignment. will continue to monitor
[2018-06-15] MEDS: MORPHINE SULFATE INJ 4 MG/ML INJ 1ML IV PRN ×2 (08:46→14:01)
[2018-06-15] MEDS ORDERED: VITAMIN E400 UNI1 PEG (08:50)
[2018-06-15] MEDS ORDERED: MULTI-VITAMIN1 EACH PO (08:50)
[2018-06-15] MEDS ORDERED: LISINOPRIL10 MG PO (08:50)
[2018-06-15] MEDS ORDERED: b12 PEG (08:50)
[2018-06-15] MEDS ORDERED: DEXTROSE 50% SYRINGE 50 ML IV PRN (10:00)
[2018-06-15] MEDS: INSULIN REGULAR, HUMAN 100 UNIT/1 ML 3ML VIAL SQ SCH ×3 (12:40→21:00)
[2018-06-15 13:20] VITALS: BP 160/89
[2018-06-15 13:30] VITALS: BP 160/89
--- NOTE | 2018-06-15 13:31 | NUR ---
PATIENT ARRIVED ON THE UNIT AT 1320 PER BED FROM ER. PATIENT IS AWAKE, ALERT, AND IN STABLE CONDITION WITH NO S/S OF RESPIRATORY DISTRESS. PATIENT C/O LEFT LOWER LEG 6/10. CELLULITIS AREA MARKED ON LEFT LOWER LEG- SLIGHT REDNESS AND WARM TO TOUCH NOTED. IV FLUIDS INFUSING. BILATERAL FEET ARE ELEVATED WITH A PILLOW. CALL LIGHT IS WITHIN REACH, PATIENT INSTRUCTED TO CALL FOR ASSISTANCE NEEDED.
[2018-06-15 15:45] VITALS: BP 153/92
--- NOTE | 2018-06-15 19:30 | NUR ---
PATIENT IS IN STABLE CONDITION WITH NO S/S OF RESPIRATORY DISTRESS. NO PAIN VOICED AT THIS TIME. IV FLUIDS INFUSING. BILATERAL FEET ELEVATED BY PILLOWS. CALL LIGHT IS WITHIN REACH, PATIENT INSTRUCTED TO CALL FOR ASSISTANCE NEEDED. BEDSIDE REPORT GIVEN TO ONCOMING NURSE.
--- NOTE | 2018-06-15 20:00 | NUR ---
RECEIVED PT IN BED AOX3 LEFT LOWER LEG WITH CELLULITIS WITH DRESSING AND ELEVATED .DENIES PAIN CALL LIGHT WITH IN REACH CONTINUE TO MONITOR
[2018-06-15 20:45] VITALS: BP 166/94
[2018-06-15] MEDS: INSULIN GLARGINE 100 UNITS/ML VIAL SQ SCH (21:15)
[2018-06-16] VITALS (7 sets, daily range): BP systolic 141–169; BP diastolic 19–95
[2018-06-16] MEDS: MORPHINE SULFATE INJ 4 MG/ML INJ 1ML IV PRN ×2 (00:52→21:30)
[2018-06-16] MEDS: SODIUM CHLORIDE 0.9% 1000ML 1,000 ML IV SCH ×4 (05:39→21:39)
[2018-06-16] MEDS: PIPERACILLIN/TAZOBAC 2.25 GM/SOD CHL 50 ML BAG IV SCH ×3 (05:58→22:00)
--- NOTE | 2018-06-16 06:24 | NUR ---
PT RESTING C/O PAIN X1 AND GIVEN ORDERED PAIN MEDICATION .CALL LIGHT WITH IN REACH .CONTINUE TO MONITOR
--- NOTE | 2018-06-16 07:12 | NUR ---
REPORT GIVEN TO THE ONCOMING NURSE
--- NOTE | 2018-06-16 07:15 | NUR ---
PATIENT IS ALERT, AMBULATING, AND IN STABLE CONDITION WITH NO S/S OF RESPIRATORY DISTRESS. NO PAIN VOICED. CELLULITIS NOTED TO LEFT LOWER EXTREMITY (ANTERIOR AND POSTERIOR). CALL LIGHT IS WITHIN REACH, PATIENT INSTRUCTED TO CALL FOR ASSISTANCE NEEDED.
[2018-06-16] MEDS: INSULIN REGULAR, HUMAN 100 UNIT/1 ML 3ML VIAL SQ SCH ×4 (07:30→21:00)
[2018-06-16] MEDS: INSULIN LISPRO 100 UNIT/1 ML 3ML VIAL SQ SCH ×3 (08:00→17:35)
[2018-06-16] MEDS: FENOFIBRATE 145 MG TAB PO SCH (08:30)
[2018-06-16] MEDS: CYANOCOBALAMIN 1,000 MCG TAB PEG SCH (08:31)
[2018-06-16] MEDS: LISINOPRIL 10 MG TAB PO SCH (08:31)
[2018-06-16] MEDS: AMLODIPINE BESYLATE 10 MG TAB PO SCH (08:31)
[2018-06-16] MEDS: VITAMIN E 400 UNIT CAP PEG SCH (08:31)
[2018-06-16] MEDS: MULTIVITAMINS/MINERALS TAB PO SCH (08:31)
[2018-06-16] MEDS: METOPROLOL TARTRATE 25 MG TAB PO SCH ×2 (08:32→17:12)
[2018-06-16] MEDS: INSULIN GLARGINE 100 UNITS/ML VIAL SQ SCH ×2 (08:32→21:00)
[2018-06-16] MEDS ORDERED: ONDANSETRON HCL 4 MG ORAL DISINTEGRATING TAB PO PRN (14:45)
--- NOTE | 2018-06-16 19:17 | NUR ---
PATIENT IS IN STABLE CONDITION WITH NO S/S OF RESPIRATORY DISTRESS. NO PAIN VOICED. IV FLUIDS INFUSING. CALL LIGHT IS WITHIN REACH, PATIENT INSTRUCTED TO CALL FOR ASSISTANCE NEEDED. BEDSIDE REPORT GIVEN TO ONCOMING NURSE.
--- NOTE | 2018-06-16 19:28 | NUR ---
RECEIVED PT IN BED AOX3 .DENIES PAIN .CALL LIGHT WITH IN REACH CONTINUE TO MONITOR
[2018-06-16] MEDS ORDERED: SIMVASTATIN 40 MG TAB PO SCH (21:00)
[2018-06-16] MEDS: VANCOMYCIN 1GM/NS 250 ML 250 ML IV SCH (23:45)
[2018-06-17] VITALS: BP 168/96
[2018-06-17 00:30] VITALS: BP 141/92
[2018-06-17 04:00] VITALS: BP 139/90
[2018-06-17] MEDS: SODIUM CHLORIDE 0.9% 1000ML 1,000 ML IV SCH (05:39)
[2018-06-17] MEDS: PIPERACILLIN/TAZOBAC 2.25 GM/SOD CHL 50 ML BAG IV SCH (05:44)
[2018-06-17] MEDS: MORPHINE SULFATE INJ 4 MG/ML INJ 1ML IV PRN (05:44)
[2018-06-17 06:51] LABS: HEMATOCRIT 32.2 % (38.2-49.6); HEMOGLOBIN 10.6 g/dL (14.0-18.0); MEAN CORPUSCULAR HEMOGLOBIN 29.4 pg (28-32); MEAN CORPUSCULAR HGB CONC 32.9 g/dL (31-35); MEAN CORPUSCULAR VOLUME 89.2 fL (81-99); PLATELET COUNT 212 x10e3/uL (140-360); RED BLOOD COUNT 3.61 x10e6/uL (4.3-5.7); RED CELL DISTRIBUTION WIDTH 13.4 % (11.7-14.4)
--- NOTE | 2018-06-17 07:12 | NUR ---
REPORT GIVEN TO THE ON COMING NURSE
[2018-06-17 07:39] LABS: ANION GAP 11.8 mmol/L (8-16); CALCIUM 9.1 mg/dL (8.4-10.2); CREATININE, SERUM 2.58 mg/dL (0.72-1.25); POTASSIUM 3.8 mmol/L (3.5-5.1)
[2018-06-17 07:58] VITALS: BP 153/95
[2018-06-17 09:27] VITALS: BP 153/95
[2018-06-17] MEDS: CYANOCOBALAMIN 1,000 MCG TAB PEG SCH (09:27)
[2018-06-17] MEDS: INSULIN REGULAR, HUMAN 100 UNIT/1 ML 3ML VIAL SQ SCH ×2 (09:27→11:45)
[2018-06-17] MEDS: MULTIVITAMINS/MINERALS TAB PO SCH (09:27)
[2018-06-17] MEDS: METOPROLOL TARTRATE 25 MG TAB PO SCH (09:27)
[2018-06-17] MEDS: VITAMIN E 400 UNIT CAP PEG SCH (09:27)
[2018-06-17] MEDS: INSULIN LISPRO 100 UNIT/1 ML 3ML VIAL SQ SCH ×2 (09:27→11:45)
--- NOTE | 2018-06-17 09:27 | NUR ---
Pt received resting in bed. Alert and oriented x4. Oriented to staff and surroundings, encouraged to press call oliveira if help needed. Pt verbalized understanding of teaching. Pt is for discharge today. Will monitor
[2018-06-17] MEDS: FENOFIBRATE 145 MG TAB PO SCH (09:28)
[2018-06-17] MEDS: INSULIN GLARGINE 100 UNITS/ML VIAL SQ SCH (09:28)
[2018-06-17] MEDS: LISINOPRIL 10 MG TAB PO SCH (09:28)
[2018-06-17] MEDS: AMLODIPINE BESYLATE 10 MG TAB PO SCH (09:28)
[2018-06-17 11:52] VITALS: BP 165/89
[2018-06-17] MEDS ORDERED: DOXYCYCLINE HY100 MG PO (12:17)
--- NOTE | 2018-06-17 13:00 | NUR ---
Pt given discharge instructions regarding meds, diet, activities, and follow up appointment with PCP. Pt verbalized understanding of teaching. Pt refused wheelchair. Escorted by nurse off unit to private car.
[2018-06-17 14:15] LABS: EOSINOPHILS % (MANUAL) 2 % (0-7); LYMPHOCYTES % (MANUAL) 18 % (19-48); MONOCYTES % (MANUAL) 13 % (3.4-9.0); NEUTROPHILS % (MANUAL) 67 % (40-74)
[2018-06-17 14:16] LABS: ANISOCYTOSIS SLIGHT; HYPOCHROMASIA SLIGHT; PLATELET ESTIMATE ADEQUATE; PLATELET MORPHOLOGY COMMENT NORMAL; RBC MORPHOLOGY COMMENT NORMAL
== END 2018-06-17 12:58 | disposition home or self-care (01) | DRG 603 ==
LOC: ER 19:02 → ERHOLD 21:48 → MED/SURG3 06-15 13:25
DX: L03.116 Cellulitis of left lower limb (principal); E11.9 Type 2 diabetes mellitus without complications; N20.0 Calculus of kidney
CPT/HCPCS: 36415; 74176; 80048; 80053; 80202; 81001; 82948; 83605; 85007; 85025; 85027; 87040; 87086; 96361; 99284; J0696; J1815; J1885; J2270; J2405; J2543; J3370; J7030

== ENCOUNTER 2019-03-23 19:10 | Emergency (ER) | payer SELFPAY ==
[~2019-03-23] VITALS: Ht 157.5 cm; Wt 103.4 kg
[~2019-03-23 19:10] MED LIST changes: +LISINOPRIL10 MG PO; +VITAMIN E400 UNI1 PEG; +b12 PEG
[2019-03-23] MEDS ORDERED: HYDROCODONE/APAP 10MG-325MG TAB PO NR (20:30)
[2019-03-23] MEDS ORDERED: HYDROCODONE/APAP 10MG-325MG TAB ONE (20:33)
--- NOTE | 2019-03-23 21:08 | Diagnostic Imaging Report ---
History:High blood pressure, headaches Comparison studies:CT head 01/20/2017 Technique: Axial images were obtained from the skull base to the vertex. Coronal and sagittal images reconstructed from the axial data. Intravenous contrast: None Dose modulation, iterative reconstruction, and/or weight based adjustment of the mA/kV was utilized to reduce the radiation dose to as low as reasonably achievable. Findings: Scalp/skull: No abnormalities. Extra-axial spaces: No masses. No fluid collections. Brain sulci: Mildly prominent. Ventricles: Mild compensatory dilatation. No hydrocephalus. Parenchyma: No abnormal densities. No masses, hemorrhage, acute or chronic cortical vascular insults. Sellar/suprasellar region: No abnormalities. Craniocervical junction: Patent foramen magnum. No Chiari one malformation. Incidental findings: None. Impression: No acute abnormalities. Mild generalized volume loss , more than expected for patient's age. Signed by: DR Ab Key M.D. on 03/23/2019 9:31 PM
[2019-03-23] MEDS ORDERED: HYDRALAZINE HCL 20 MG/ML VIAL IV ONE (21:30)
[2019-03-23 22:24] LABS: BASOPHILS # (AUTO) 0.1 (0.0-0.1); BASOPHILS % 0.7 % (0.0-1.0); EOSINOPHILS # (AUTO) 0.2 (0.0-0.4); EOSINOPHILS % 2.2 % (0.0-6.0); HEMATOCRIT 29.4 % (38.2-49.6); LYMPHOCYTES # (AUTO) 1.1 (1.0-3.2); LYMPHOCYTES % 10.8 % (18.0-39.1); MEAN CORPUSCULAR HEMOGLOBIN 29.9 pg (28-32); MONOCYTES # (AUTO) 0.5 (0.2-0.8); PLATELET COUNT 173 x10e3/uL (140-360); RED BLOOD COUNT 3.34 x10e6/uL (4.3-5.7)
[2019-03-23 23:15] LABS: ALBUMIN 2.8 g/dL (3.5-5.0); ALBUMIN/GLOBULIN RATIO 0.8 (0.8-2.0); CALCIUM 8.6 mg/dL (8.4-10.2); CREATININE, SERUM 6.27 mg/dL (0.72-1.25)
[2019-03-23 23:23] LABS: CREATINE KINASE MB 2.1 ng/mL (0-5.0)
[2019-03-23 23:36] VITALS: BP 167/101
== END 2019-03-23 23:49 | disposition home or self-care (01) ==
LOC: ER 19:10
DX: I10 Essential (primary) hypertension (principal); E11.9 Type 2 diabetes mellitus without complications; N28.9 Disorder of kidney and ureter, unspecified; E78.5 Hyperlipidemia, unspecified
CPT/HCPCS: 36415; 70450; 80053; 82550; 82553; 84484; 85025; 99284; J0360

== ENCOUNTER 2019-08-01 19:11 | Inpatient (IN) | payer OTHER, SELFPAY ==
[~2019-08-01] VITALS: Ht 165.1 cm; Wt 106.6 kg
[2019-08-01 20:28] LABS: BASOPHILS # (AUTO) 0.1 (0.0-0.1); BASOPHILS % 0.6 % (0.0-1.0); EOSINOPHILS # (AUTO) 0.3 (0.0-0.4); EOSINOPHILS % 3.4 % (0.0-6.0); HEMOGLOBIN 7.3 g/dL (14.0-18.0); LYMPHOCYTES # (AUTO) 1.1 (1.0-3.2); LYMPHOCYTES % 10.8 % (18.0-39.1); MEAN CORPUSCULAR HEMOGLOBIN 29.6 pg (28-32); MEAN CORPUSCULAR HGB CONC 33.2 g/dL (31-35); MEAN CORPUSCULAR VOLUME 89.1 fL (81-99); MONOCYTES # (AUTO) 0.7 (0.2-0.8); MONOCYTES % 7.2 % (4.4-11.3); NEUTROPHILS # (AUTO) 7.7 (2.1-6.9); NEUTROPHILS % 77.5 % (38.7-80.0); PLATELET COUNT 208 x10e3/uL (140-360); RED BLOOD COUNT 2.47 x10e6/uL (4.3-5.7); RED CELL DISTRIBUTION WIDTH 13.7 % (11.7-14.4)
[2019-08-01 20:51] LABS: INR 0.99; PROTHROMBIN TIME 13.7 seconds (11.9-14.5)
[2019-08-01 20:52] LABS: PARTIAL THROMBOPLASTIN TIME 30.3 seconds (23.8-35.5)
[2019-08-01 21:01] LABS: ALBUMIN/GLOBULIN RATIO 0.7 (0.8-2.0); ANION GAP 23.8 mmol/L (8-16); CALCIUM 7.4 mg/dL (8.4-10.2); CREATININE, SERUM 17.63 mg/dL (0.72-1.25); POTASSIUM 4.8 mmol/L (3.5-5.1)
[2019-08-01 21:07] LABS: CREATINE KINASE MB 2.6 ng/mL (0-5.0)
--- NOTE | 2019-08-01 21:15 | Diagnostic Imaging Report ---
EXAMINATION: CHEST 2 VIEWS INDICATION: ^SOB, CP ^[id number] ^2019 COMPARISON: 08/18/2017 FINDINGS: PA and lateral views TUBES and LINES: None. LUNGS: Lungs are well inflated. Pulmonary vascular congestion and mild interstitial edema. PLEURA: No pleural effusion or pneumothorax. HEART AND MEDIASTINUM: The cardiomediastinal silhouette is enlarged. BONES AND SOFT TISSUES: No acute osseous lesion. Soft tissues are unremarkable. UPPER ABDOMEN: No free air under the diaphragm. IMPRESSION: Enlarged cardiomediastinal silhouette, pulmonary vascular congestion, and mild interstitial edema. Underlying pneumonia in the bilateral perihilar regions cannot be excluded in the appropriate clinical context. Signed by: Dr. Carter Moreland MD on 08/01/2019 9:11 PM
[2019-08-01 21:20] LABS: AMYLASE 144 U/L (25-125); LIPASE 122 U/L (8-78)
--- NOTE | 2019-08-01 21:43 | Emergency Department Note ---
History of Present Illnes History of Present Illness Chief Complaint: Chest Pain History of Present Illness This is a 39 year old male presents with complaint of generalized weakness shortness of breath and congestion for about a week. States symptoms started after [employer] back to work a week and a half ago. Denies fever. Denies cough. . Historian: Patient Arrival Mode: Car Onset (how long ago): day(s) (7) Location: ALL OVER Quality: GENERALIZED WEAKNESS, SOB Radiation: Reports non-radiation Severity: moderate Onset quality: gradual Duration (how long): day(s) (7) Timing of current episode: constant Progression: worsening Chronicity: new Context: Denies recent illness, Denies recent surgery Relieving factors: none Exacerbating factors: none Associated symptoms: Reports denies other symptoms Past Medical/Family History Physician Review I have reviewed the patient's past medical and family history. Any updates have been documented here. Past Medical History Recent Fever: No Clinical Suspicion of Infectio: No New/Unexplained Change in Ment: No Past Medical History: Hypertension, Diabetes, Hyperlipedemia, Chronic Kidney Disease Other Medical History: BILATERAL LYMPHEDEMA Past Surgical History: None Other Surgery: TONSILLECTOMY Social History Smoking Cessation: Never Smoker Counseling Performed: No Alcohol Use: None Any Illegal Drug Use: No TB Exposure/Symptoms: No Physically hurt or threatened: No Family History Family history of heart diseas: No Other Last Tetanus: UNknown Any Pre-Existing Lines (PICC,: No Is patient up to date on immun: Yes Last Flu: utd Last Pneumovax: denies Review of Systems Review of Systems Constitutional: Reports no symptoms EENTM: Reports no symptoms Cardiovascular: Reports no symptoms Respiratory: Reports as per HPI Gastrointestinal: Reports no symptoms Genitourinary: Reports no symptoms Musculoskeletal: Reports no symptoms Integumentary: Reports no symptoms Neurological: Reports as per HPI Psychological: Reports no symptoms Endocrine: Reports no symptoms Hematological/Lymphatic: Reports no symptoms Physical Exam Related Data Allergies: Coded Allergies: Sulfa (Sulfonamide Antibiotics) (Verified Allergy, Mild, rash, 02/15/19) Triage Vital Signs Vital Signs Date Time Temp Pulse Resp B/P (MAP) Pulse Ox O2 Delivery O2 Flow Rate FiO2 08/01/19 19:50 99.0 78 16 136/91 98 Vital signs reviewed: Yes Physical Exam CONSTITUTIONAL Constitutional: Present well-developed, Present well-nourished HENT HENT: Present normocephalic, Present atraumatic, Present oropharynx clear/moist, Present nose normal HENT L/R: Present left ext ear normal, Present right ext ear normal EYES Eyes: Reports PERRL, Reports conjunctivae normal NECK Neck: Present ROM normal PULMONARY Pulmonary: Present effort normal, Present other (MILD DECREASED BREATH SOUNDS AT BASE BILATERAL) CARDIOVASCULAR Cardiovascular: Present regular rhythm, Present heart sounds normal, Present capillary refill normal, Present normal rate GASTROINTESTINAL Abdominal: Present soft, Present nontender, Present bowel sounds normal GENITOURINARY Genitourinary: Present exam deferred SKIN Skin: Present warm, Present dry MUSCULOSKELETAL Musculoskeletal: Present ROM normal, Present edema (PT WITH BILATERAL LYMPHEDEMA) NEUROLOGICAL Neurological: Present alert, Present oriented x 3, Present no gross motor or sensory deficits PSYCHOLOGICAL Psychological: Present mood/affect normal, Present judgement normal Results Laboratory Result Diagram: 08/01/19199908/01/191999 Laboratory Laboratory Tests Test 08/01/19 21:20 08/01/19 20:00 Urine Color Yellow (YELLOW) Urine Clarity Clear (CLEAR) Urine pH 6 (5 - 7) Urine Specific [place] 1.025 (1.010-1.025) Urine Protein >=300 (NEGATIVE) Urine Glucose (UA) 1+ (NEGATIVE) Urine Ketones Negative (NEGATIVE) Urine Blood Small (NEGATIVE) Urine Nitrite Negative (NEGATIVE) Urine Bilirubin Negative (NEGATIVE) Urine Urobilinogen 0.2 mg/dL (0.2 - 1) Urine Leukocyte Esterase Negative (NEGATIVE) Urine RBC 6-10 /HPF (0-5) Urine WBC 11-20 /HPF (0-5) Urine Epithelial Cells Few /LPF (NONE) Urine Bacteria Moderate /HPF (NONE) White Blood Count 9.98 x10e3/uL (4.8-10.8) Red Blood Count 2.47 x10e6/uL (4.3-5.7) Hemoglobin 7.3 g/dL (14.0-18.0) Hematocrit 22.0 % (38.2-49.6) Mean Corpuscular Volume 89.1 fL (81-99) Mean Corpuscular Hemoglobin 29.6 pg (28-32) Mean Corpuscular Hemoglobin Concent 33.2 g/dL (31-35) Red Cell Distribution Width 13.7 % (11.7-14.4) Platelet Count 208 x10e3/uL (140-360) Neutrophils (%) (Auto) 77.5 % (38.7-80.0) Lymphocytes (%) (Auto) 10.8 % (18.0-39.1) Monocytes (%) (Auto) 7.2 % (4.4-11.3) Eosinophils (%) (Auto) 3.4 % (0.0-6.0) Basophils (%) (Auto) 0.6 % (0.0-1.0) Neutrophils # (Auto) 7.7 (2.1-6.9) Lymphocytes # (Auto) 1.1 (1.0-3.2) Monocytes # (Auto) 0.7 (0.2-0.8) Eosinophils # (Auto) 0.3 (0.0-0.4) Basophils # (Auto) 0.1 (0.0-0.1) Absolute Immature Granulocyte (auto 0.05 x10e3/uL (0-0.1) Prothrombin Time 13.7 seconds (11.9-14.5) Prothromb Time International Ratio 0.99 Activated Partial Thromboplast Time 30.3 seconds (23.8-35.5) Sodium Level 139 mmol/L (136-145) Potassium Level 4.8 mmol/L (3.5-5.1) Chloride Level 107 mmol/L (98-107) Carbon Dioxide Level 13 mmol/L (22-29) Anion Gap 23.8 mmol/L (8-16) Blood Urea Nitrogen 115 mg/dL (7-26) Creatinine 17.63 mg/dL (0.72-1.25) Estimat Glomerular Filtration Rate 3 ML/MIN (60-) BUN/Creatinine Ratio 7 (6-25) Glucose Level 95 mg/dL (74-118) Calcium Level 7.4 mg/dL (8.4-10.2) Total Bilirubin 0.4 mg/dL (0.2-1.2) Aspartate Amino Transf (AST/SGOT) 16 IU/L (5-34) Alanine Aminotransferase (ALT/SGPT) 17 IU/L (0-55) Alkaline Phosphatase 93 IU/L (40-150) Creatine Kinase 278 IU/L (30-200) Creatine Kinase MB 2.60 ng/mL (0-5.0) Troponin I 0.047 ng/mL (0-0.300) B-Type Natriuretic Peptide 523.5 pg/mL (0-100) Total Protein 7.1 g/dL (6.5-8.1) Albumin 3.0 g/dL (3.5-5.0) Globulin 4.1 g/dL (2.3-3.5) Albumin/Globulin Ratio 0.7 (0.8-2.0) Amylase Level 144 U/L (25-125) Lipase 122 U/L (8-78) Laboratory Tests Test 08/01/19 21:20 08/01/19 20:00 White Blood Count 9.98 x10e3/uL (4.8-10.8) Red Blood Count 2.47 x10e6/uL (4.3-5.7) Hemoglobin 7.3 g/dL (14.0-18.0) Hematocrit 22.0 % (38.2-49.6) Mean Corpuscular Volume 89.1 fL (81-99) Mean Corpuscular Hemoglobin 29.6 pg (28-32) Mean Corpuscular Hemoglobin Concent 33.2 g/dL (31-35) Red Cell Distribution Width 13.7 % (11.7-14.4) Platelet Count 208 x10e3/uL (140-360) Neutrophils (%) (Auto) 77.5 % (38.7-80.0) Lymphocytes (%) (Auto) 10.8 % (18.0-39.1) Monocytes (%) (Auto) 7.2 % (4.4-11.3) Eosinophils (%) (Auto) 3.4 % (0.0-6.0) Basophils (%) (Auto) 0.6 % (0.0-1.0) Neutrophils # (Auto) 7.7 (2.1-6.9) Lymphocytes # (Auto) 1.1 (1.0-3.2) Monocytes # (Auto) 0.7 (0.2-0.8) Eosinophils # (Auto) 0.3 (0.0-0.4) Basophils # (Auto) 0.1 (0.0-0.1) Absolute Immature Granulocyte (auto 0.05 x10e3/uL (0-0.1) Prothrombin Time 13.7 seconds (11.9-14.5) Prothromb Time International Ratio 0.99 Activated Partial Thromboplast Time 30.3 seconds (23.8-35.5) Sodium Level 139 mmol/L (136-145) Potassium Level 4.8 mmol/L (3.5-5.1) Chloride Level 107 mmol/L (98-107) Carbon Dioxide Level 13 mmol/L (22-29) Anion Gap 23.8 mmol/L (8-16) Blood Urea Nitrogen 115 mg/dL (7-26) Creatinine 17.63 mg/dL (0.72-1.25) Estimat Glomerular Filtration Rate 3 ML/MIN (60-) BUN/Creatinine Ratio 7 (6-25) Glucose Level 95 mg/dL (74-118) Calcium Level 7.4 mg/dL (8.4-10.2) Total Bilirubin 0.4 mg/dL (0.2-1.2) Aspartate Amino Transf (AST/SGOT) 16 IU/L (5-34) Alanine Aminotransferase (ALT/SGPT) 17 IU/L (0-55) Alkaline Phosphatase 93 IU/L (40-150) Creatine Kinase 278 IU/L (30-200) Creatine Kinase MB 2.60 ng/mL (0-5.0) Troponin I 0.047 ng/mL (0-0.300) Total Protein 7.1 g/dL (6.5-8.1) Albumin 3.0 g/dL (3.5-5.0) Globulin 4.1 g/dL (2.3-3.5) Albumin/Globulin Ratio 0.7 (0.8-2.0) Amylase Level 144 U/L (25-125) Lipase 122 U/L (8-78) Lab results reviewed: Yes Imaging Imaging results reviewed: Yes Impressions EXAMINATION: CHEST 2 VIEWS INDICATION: ^SOB, CP ^[id number] ^2019 COMPARISON: 08/18/2017 FINDINGS: PA and lateral views TUBES and LINES: None. LUNGS: Lungs are well inflated. Pulmonary vascular congestion and mild interstitial edema. PLEURA: No pleural effusion or pneumothorax. HEART AND MEDIASTINUM: The cardiomediastinal silhouette is enlarged. BONES AND SOFT TISSUES: No acute osseous lesion. Soft tissues are unremarkable. UPPER ABDOMEN: No free air under the diaphragm. IMPRESSION: Enlarged cardiomediastinal silhouette, pulmonary vascular congestion, and mild interstitial edema. Underlying pneumonia in the bilateral perihilar regions cannot be excluded in the appropriate clinical context. Signed by: Dr. Carter Moreland MD on 08/01/2019 9:11 PM Procedures 12 Lead ECG Interpretation ECG Interpretation : ECG: ECG 1 Manager Physical: Interpreted by ED physician Date: Aug 01, 2019 Time: 20:01 Rhythm: sinus rhythm Rate: normal BPM: 73 QRS axis: normal ST segments normal: Yes T waves normal: Yes Other findings: no other findings Clinical Impression: normal ECG Assessment & Plan Medical Decision Making MDM Patient with generalized weakness shortness of breath cough and congestion for 7 days. CBC, CMP, cardiac enzymes, covid 19, chest x-ray, ordered to eval for anemia, electrolyte abnormality, pneumonia, myocardial infarction, Covid 19 infection Patient found to have creatinine of 17 and a BUN/creatinine of 115 with mild pulmonary edema on chest x-ray. Found to be anemic. I spoke with Dr. Aguilar. I also spoke with Dr Herrera. Admit patient to inpatient place consult for IR replacement dialysis catheter in the morning so patient can be started on dialysis.. Assessment & Plan Final Impression: (1) Anemia (2) Renal failure (3) Uremia (4) Lymphedema (5) Pulmonary edema (6) UTI (urinary tract infection) Depart Disposition: ADMITTED Last Vital Signs Date Time Temp Pulse Resp B/P (MAP) Pulse Ox O2 Delivery O2 Flow Rate FiO2 08/01/19 20:45 72 17 137/87 100 08/01/19 19:50 99.0 Home Meds Reported Medications Clonidine Hcl (CLONIDINE HCL) 0.1 Mg Tablet, 1 TAB PO TID, #90 TAB 02/16/19 Doxycycline Hyclate (DOXYCYCLINE HYCLATE) 100 Mg Capsule, 100 MG PO DAILY, CAP 06/17/18 Vitamin E Mixed (VITAMIN E) 400 Unit Capsule, 1 TAB PEG DAILY 06/15/18 [b12] No Conflict Check, 1 TAB PEG DAILY 06/15/18 Multivitamin (MULTI-VITAMIN DAILY) 1 Each Tablet, 1 TAB PO DAILY 06/15/18 Lisinopril (LISINOPRIL) 10 Mg Tablet, 10 MG PO DAILY 06/15/18 Fenofibrate (TRICOR) 145 Mg Tab, 160 MG PO DAILY, #30 TAB 03/03/18 Pravastatin Sodium (PRAVASTATIN SODIUM) 80 Mg Tablet, 80 MG PO DAILY THERAPEUTICALLY SUBSTITUTED WITH SIMVASTATIN 40MG 03/03/18 Insulin Lispro (HUMALOG) 100 Unit/1 Ml Insuln.pen, 16 UNIT SQ TIDWM 03/03/18 Insulin Detemir (LEVEMIR) 100 Unit/1 Ml Vial, 26 UNIT SQ BID 03/03/18 Metoprolol Tartrate (METOPROLOL TARTRATE) 25 Mg Tablet, 25 MG PO BID, #60 TAB 08/24/17 Amlodipine Besylate (AMLODIPINE BESYLATE) 10 Mg Tablet, 10 MG PO DAILY, #30 TAB 08/24/17 NEHAL WADE MD Aug 01, 2019 21:43
[2019-08-01 21:56] LABS: BILIRUBIN,URINE NEGATIVE (NEGATIVE); CLARITY,URINE CLEAR (CLEAR); COLOR,URINE YELLOW (YELLOW); KETONES,URINE NEGATIVE (NEGATIVE); LEUKOCYTE ESTERASE ,URINE NEGATIVE (NEGATIVE); NITRITE,URINE NEGATIVE (NEGATIVE); PROTEIN,URINE DIPSTICK >=300 (NEGATIVE); URINE UROBILINOGEN 0.2 mg/dL (0.2 - 1)
[2019-08-01 22:11] LABS: BACTERIA,URINE MODERATE /HPF; EPITHELIAL CELLS,URINE FEW /LPF
--- NOTE | 2019-08-01 22:15 | NUR ---
16FR DANIELLE CATHETER INSERTED USING STERILE TECHNIQUE PER ORDERS. 30CC CLEAR YELLOW URINE RETURN NOTED PER ORDERS. MD INFORMED.
[2019-08-01] MEDS ORDERED: SODIUM BICARBONATE 8.4% INJ 50 ML SYR IV STA (22:39)
[2019-08-01] MEDS: CEFTRIAXONE SOD 1 GM/NS 50 ML 50 ML IV SCH (22:50)
[2019-08-01] MEDS ORDERED: DEXTROSE 50% SYRINGE 50 ML IV PRN (23:00)
[2019-08-01] MEDS ORDERED: ONDANSETRON HCL INJ 2MG/ML 2ML 2 MG/ML VIAL IV PRN (23:00)
[2019-08-01] MEDS ORDERED: SODIUM CHLORIDE FLUSH 10 ML SYR INJ PRN (23:00)
[2019-08-02] VITALS (9 sets, daily range): BP systolic 148–175; BP diastolic 84–95
[2019-08-02 05:50] LABS: BASOPHILS # (AUTO) 0.1 (0.0-0.1); BASOPHILS % 0.5 % (0.0-1.0); EOSINOPHILS # (AUTO) 0.3 (0.0-0.4); EOSINOPHILS % 2.7 % (0.0-6.0); HEMATOCRIT 21.5 % (38.2-49.6); LYMPHOCYTES # (AUTO) 1.3 (1.0-3.2); LYMPHOCYTES % 11.7 % (18.0-39.1); MEAN CORPUSCULAR HEMOGLOBIN 29.3 pg (28-32); MEAN CORPUSCULAR HGB CONC 32.6 g/dL (31-35); MONOCYTES # (AUTO) 0.7 (0.2-0.8); NEUTROPHILS # (AUTO) 8.6 (2.1-6.9); NEUTROPHILS % 78.7 % (38.7-80.0); PLATELET COUNT 190 x10e3/uL (140-360); RED BLOOD COUNT 2.39 x10e6/uL (4.3-5.7); RED CELL DISTRIBUTION WIDTH 13.6 % (11.7-14.4)
[2019-08-02 05:56] LABS: INR 1.05; PROTHROMBIN TIME 14.3 seconds (11.9-14.5)
[2019-08-02 05:57] LABS: PARTIAL THROMBOPLASTIN TIME 32.6 seconds (23.8-35.5)
[2019-08-02 06:02] LABS: ALBUMIN 2.8 g/dL (3.5-5.0); ALBUMIN/GLOBULIN RATIO 0.8 (0.8-2.0); ANION GAP 23.7 mmol/L (8-16); CALCIUM 7.4 mg/dL (8.4-10.2); CREATININE, SERUM 18.73 mg/dL (0.72-1.25); POTASSIUM 4.7 mmol/L (3.5-5.1)
--- NOTE | 2019-08-02 07:04 | NUR ---
bedside shift report received from cruise consultant nurse. pt awake, in stable condition, no complaints at this time. will continue to monitor.
[2019-08-02] MEDS: INSULIN REGULAR, HUMAN 100 UNIT/1 ML 3ML VIAL SQ SCH ×4 (07:30→20:55)
--- NOTE | 2019-08-02 11:27 | NUR ---
pt left unit for IR tunneled catheter placement; left in stable condition.
[2019-08-02] MEDS ORDERED: MIDAZOLAM HCL 2 MG/2 ML VIAL ONE (11:43)
[2019-08-02] MEDS ORDERED: HEPARIN SOD (PORCINE) 1000 UNIT/ML SDV ONE (11:43)
[2019-08-02] MEDS ORDERED: SODIUM CHLORIDE 0.9% 250ML 250 ML ONE (11:43)
[2019-08-02] MEDS ORDERED: FENTANYL CITRATE/PF 100MCG/2 ML INJ ONE (11:44)
[2019-08-02] MEDS ORDERED: CEFAZOLIN SOD 1 GM/NS 50ML 50 ML IV ONE (12:06)
--- NOTE | 2019-08-02 13:11 | NUR ---
PT ARRIVED BACK TO ROOM 108; PT AWAKE, ALERT, NO SIGNS OF DISTRESS. NO COMPLAINTS AT THIS TIME.
--- NOTE | 2019-08-02 13:12 | Diagnostic Imaging Report ---
Tunneled dialysis catheter insertion. History: Renal failure. Modality: Sonography and fluoroscopy. Sedation: Versed 1.5 mg and fentanyl 75 mcg was given intravenously for conscious sedation. Vital signs were monitored throughout the procedure by a nurse, and remained stable. Physician intra-service time was 20. Furniture Repair Technician: Ld Ruiz MD Marketing Development Manager: None. Approach: Right internal jugular vein Estimated blood loss: < 5 cc. Specimen: None. Fluoroscopy Time: 1.1 min. Dose (Ka,r): 12.3 mGy. Technique: Informed written consent was obtained. Discussion of risks, benefits, and alternatives were made with the patient. The patient expressed understanding and agreed to proceed. All elements maximal sterile barrier technique was utilized for this procedure, including utilization of sterile scrub solution for skin prep, a large sterile sheet to cover the areas of the patient that were not prepped, and hand hygiene, mask, head covering, and sterile gown for performing radiologist and scrub technologist. The skin was anesthetized with 2% lidocaine.Ultrasound evaluation showed a patent and compressible right internal jugular vein, which was punctured under direct real-time ultrasound guidance with a micropuncture needle. An ultrasound image was saved to PACS. A 0.018 inch wire was placed through the needle into the right atrium. A 4 Divehi micropuncture sheath was placed and 0.035 wire advanced into the IVC. A subcutaneous tunnel was created in the right anterior chest wall by blunt dissection. A 19 cm tip to cuff 15.5 Divehi palindrome catheter was brought through the tunnel. The vessel tract was serially dilated over wire. A peel-away sheath was placed in the right IJ vein and the catheter was advanced through the sheath, with its distal tip terminating in the superior right atrium. The peel-away sheath was removed. The ports were flushed and aspirated easily following placement. The lumens were locked with heparin. The catheter was sutured to the skin to secure its placement. The small jugular incision site was closed using Dermabond. A resorbable percent suture is placed at the catheter exit site. Vital signs were monitored throughout the procedure by a nurse, and remained stable. The patient tolerated the procedure well and left the department in the same condition. Results: Spot radiograph of the chest demonstrates the new dialysis catheter to lie in the expected position with its tip overlying the superior right atrium. Impression: Successful, uncomplicated placement of a right internal jugular tunneled dialysis catheter using sonographic and fluoroscopic guidance and conscious sedation. Signed by: Dr. Ld Ruiz MD on 08/02/2019 1:09 PM
--- NOTE | 2019-08-02 15:04 | NUR ---
PT SIGNED CHOICE FOR [facility], FAXED BEGINNING PAPERWORK TO FACILITY TO START PROCESS. WILL NEED LABS (WHOM I SPOKE TO NURSE TO ORDER) AND DIALYSIS NOTES, TO BE FAXED AT A LATER TIME
[2019-08-02] MEDS ORDERED: SODIUM CHLORIDE 0.9% 250ML 250 ML IV ONE (15:20)
[2019-08-02] MEDS ORDERED: SODIUM CHLORIDE 0.9% 1000ML 2,000 ML ONE (16:22)
[2019-08-02] MEDS ORDERED: SODIUM CHLORIDE 0.9% 1000ML 2,000 ML IV PRN (19:00)
[2019-08-02] MEDS ORDERED: HEPARIN SOD (PORCINE) 1000 UNIT/ML SDV IV PRN (19:00)
[2019-08-02] MEDS ORDERED: MANNITOL 25% 12.5GM/50 ML VIAL IV PRN (19:00)
--- NOTE | 2019-08-02 19:06 | NUR ---
Received the patient in report.lyeing in the bed.stable condition.
--- NOTE | 2019-08-02 19:30 | NUR ---
Dialysis completed.1 litre removed.
--- NOTE | 2019-08-02 20:20 | Consultation ---
DATE OF CONSULTATION: Nephrology consultation. REASON FOR CONSULTATION: End-stage renal disease and uremia. HISTORY OF PRESENT ILLNESS: Mr. Alonso is a 39-year-old male who presented to the hospital because of weakness and not feeling well and congested. This patient is known to my associate, Dr. Villalpando. Dr. Villalpando has been following him for quite a while. The patient was instructed by Dr. Villalpando a couple of days ago to present to emergency room since he is not feeling well in order to initiate dialysis. The patient at the present time is just bit emotional, has mild shortness of breath. He just feels kind of weak. His serum creatinine for the past several weeks to months have been between 5 and 6. However, when he presented, his serum creatinine was about 17. The patient's BUN is about 120. PAST MEDICAL HISTORY: 1. The patient has a history of diabetes for the past 10 years. Hypertension for longer than that. 2. Hyperlipidemia. 3. Chronic kidney disease, now stage 5. PAST SURGICAL HISTORY: Tonsillectomy. MEDICATIONS: As per APR. REVIEW OF SYSTEMS: GENERAL: The patient has been feeling kind of weak and not as energetic as he usually is. The patient's face is swollen. PULMONARY: There is some cough. Occasional dyspnea. CARDIOVASCULAR: No chest pain. GI: No melena. No dyspepsia. PHYSICAL EXAMINATION: VITAL SIGNS: Blood pressure is 150/88, pulse 90. GENERAL: The patient is obese, in no acute distress. He is sitting up. HEENT: No increased JVD. The patient has a newly placed tunneled dialysis catheter in the right chest wall area. CARDIOVASCULAR: Regular rate and rhythm. LUNGS: Decreased breath sounds with some crackles at the bases bilaterally. ABDOMEN: Positive bowel sounds. EXTREMITIES: The patient has lymphedema of the legs about 2 to 3+ edema. LABORATORY: Hemoglobin is 7.0 with hematocrit 21.5, and white count is 11, platelet count is 190,000. Sodium 141, potassium 4.7, chloride 109, bicarb 30, BUN and creatinine 120 and 18 respectively. Calcium is 7.4, albumin is 2.8. IMPRESSION/PLAN: 1. Chronic kidney disease, stage 5. 2. Severe azotemia. 3. Metabolic acidosis. 4. Diabetes. 5. Hypertension. 6. Pulmonary congestion. The patient has severe azotemia. He has been postponing dialysis for a long time, but dialysis now needs to be initiated. Tunnel cath has been replaced. We will go ahead and initiate his dialysis. He will also need to be placed on an outpatient dialysis facility, we will work on that. The patient is anemic, I am going to start him on Aranesp or Epogen. He also could benefit from a blood transfusion also, we will give him 1 unit of packed red blood cells. We will check a phosphorus and PTH for renal osteodystrophy workup. I will follow the patient with you. Thank you, Dr. Aguilar for this consultation. Ather MD HERBER Mcadams/HOLLY /[id number]
[2019-08-02] MEDS ORDERED: ACETAMINOPHEN 325 MG TAB PO PRN (21:00)
[2019-08-02] MEDS: EPOETIN ALFA-EPBX 10,000 UNIT/ML VIAL SC SCH (21:12)
--- NOTE | 2019-08-02 22:10 | NUR ---
PATIENT HAS C/O PAIN @ RIGHT IJ CATHETER SITE.NOTIFIED TO .RECEIVED NEW ORDERS.IMPLEMENTED.
[2019-08-02] MEDS: CEFTRIAXONE SOD 1 GM/NS 50 ML 50 ML IV SCH (22:30)
[2019-08-03] VITALS (7 sets, daily range): BP systolic 154–208; BP diastolic 82–104
[2019-08-03 05:47] LABS: BASOPHILS # (AUTO) 0.1 (0.0-0.1); BASOPHILS % 0.6 % (0.0-1.0); EOSINOPHILS # (AUTO) 0.2 (0.0-0.4); EOSINOPHILS % 1.9 % (0.0-6.0); HEMATOCRIT 22.8 % (38.2-49.6); HEMOGLOBIN 7.4 g/dL (14.0-18.0); MEAN CORPUSCULAR HEMOGLOBIN 28.6 pg (28-32); MEAN CORPUSCULAR HGB CONC 32.5 g/dL (31-35); MONOCYTES # (AUTO) 0.8 (0.2-0.8); MONOCYTES % 7.4 % (4.4-11.3); NEUTROPHILS # (AUTO) 8.2 (2.1-6.9); NEUTROPHILS % 79.7 % (38.7-80.0); PLATELET COUNT 185 x10e3/uL (140-360); RED BLOOD COUNT 2.59 x10e6/uL (4.3-5.7); RED CELL DISTRIBUTION WIDTH 13.7 % (11.7-14.4)
[2019-08-03 05:51] LABS: ANION GAP 19.5 mmol/L (8-16); CALCIUM 8.1 mg/dL (8.4-10.2); CREATININE, SERUM 15.16 mg/dL (0.72-1.25); PHOSPHORUS 8.5 MG/DL (2.3-4.7); POTASSIUM 4.5 mmol/L (3.5-5.1)
[2019-08-03] MEDS ORDERED: FUROSEMIDE INJ 10 MG/ML 4 ML VIAL IV ONE ×2 (06:45→07:30)
[2019-08-03] MEDS: AMLODIPINE BESYLATE 10 MG TAB PO SCH (06:45)
--- NOTE | 2019-08-03 07:00 | NUR ---
BP NOTED 176/100.NOTIFIED TO MD ROBERTO. CALLED ME BACK AND ORDERED TO GIVE INJ.LASIX 80 MG IV STAT .IMPLEMENTED.BED SIDE SHIFT REPORT GIVEN TO ONCOMING RN.
--- NOTE | 2019-08-03 07:26 | NUR ---
PT'S BLOOD PRESSURE NOTED AT 208/104. RECHECKED BLOOD PRESSURE: 182/117. HR 102. SPOKE WITH DR. ALVARADO WHO CAME TO SEE PT AT BEDSIDE. DR ALVARADO ORDERED A SECOND DOSE OF 80 MG LASIX IV AND 0.1MG CLONIDINE TO BE GIVEN NOW. STATES DANIELLE CAN BE DISCONTINUED AFTER PT VOIDS.
[2019-08-03] MEDS: INSULIN REGULAR, HUMAN 100 UNIT/1 ML 3ML VIAL SQ SCH ×4 (07:30→20:40)
[2019-08-03] MEDS: CLONIDINE HCL 0.1 MG TAB PO SCH ×3 (07:46→21:10)
--- NOTE | 2019-08-03 08:49 | NUR ---
[place] [facility] [place] [facility] [place]/16/2019. TOOK PHONE TO PT, WHOM ADMITS THAT NO HE DOESNT HAVE INSURANCE AND IS ON UNEMPLOYMENT. HE HAS WORKED 10 PERIODS AND IS A CITIZEN SO SHOULD BE ABLE TO GET QUALIFIED FOR MEDICARE FOR THE ERSD. SPOKE WITH ADMISSIONS AND LET KNOW HAVE FOUND OUT ABOUT INSURANCE AND ALERTED PT TO CONTACT BUSINESS OFFICE WHEN GET MEDICARE NUMBER AND THEY MAY BE ABLE TO BACK BILL.
--- NOTE | 2019-08-03 08:52 | Progress Note ---
DATE: 08/03/2019 CHIEF COMPLAINT/HISTORY OF PRESENT ILLNESS: This is a 39-year-old white man, whose primary treating diagnosis is acute on chronic renal failure, necessitating hemodialysis. The patient also has hypertensive heart disease as well as obesity. The patient likely has underlying diastolic heart failure on admission on August 01, 2019. Chest x-ray revealed enlarged cardiomediastinal silhouette as well as pulmonary vascular congestion and mild interstitial edema. The patient denies any cough or chest congestion. He does complain of shortness of breath. The patient denies any chest pain or tightness. The patient states that his legs are still swollen and painful. The patient did start a hemodialysis yesterday which he has tolerated well. Today's hemoglobin was 7.4 g/dL, but he was transfused 1 unit of packed red cells yesterday. Today's BUN and creatinine are 89 and 15.1 respectively. The patient's bicarbonate today is 18. The patient's potassium today is 4.5. On admission, the patient was found to have B-type natriuretic peptide level of 523. REVIEW OF SYSTEMS: Review of systems as per HPI. PHYSICAL EXAMINATION: GENERAL: He is awake, alert, and fully oriented, in no distress, very pleasant and cooperative. VITAL SIGNS: Height 5 feet 3 inches, weight is 235 pounds with a calculated body mass index of 39. Blood pressure at this time is 208/104, pulse is 98, respiratory rate is 22, temperature 98.4, and oxygen 100% on room air. INTEGUMENT: Skin is warm and dry. No pallor, jaundice or diaphoresis. HEENT: Anicteric sclerae. Moist mucous membranes. NECK: Supple. No evidence of jugular venous distention. CARDIOVASCULAR: Tachycardic rate with a regular rhythm. The patient has an S3 and S4 gallop. LUNGS: The patient has faint crackles bilaterally with diminished breath sounds at bases. ABDOMEN: Obese, benign. EXTREMITIES: The patient has 1+ edema in bilateral lower legs. NEUROLOGIC: Intact. No gross focal deficits appreciated. DIAGNOSES: 1. End-stage renal disease. 2. Acute diastolic congestive heart failure, likely. 3. Hypertensive heart disease. 4. Obesity BMI of 39. 5. Anemia secondary to chronic kidney disease. PLAN: 1. We will administer intravenous furosemide since the patient is likely volume overloaded since he did receive a unit of packed red blood cells yesterday. 2. We will start metoprolol succinate 50 mg twice a day for blood pressure control. 3. Restart all home medications for blood pressure control, namely amlodipine and clonidine. 4. Order echocardiogram. 5. Order chest x-ray. 6. Consult Cardiology to assess the patient. 7. Check a TSH level. Spent 35 minutes in the care of this patient. MD CANDY Pizarro/HOLLY /[id number] MTDTali
[2019-08-03] MEDS ORDERED: METOPROLOL TARTRATE 25 MG TAB PO SCH (09:00)
--- NOTE | 2019-08-03 09:02 | NUR ---
GAVE PACKET OF INFORMATION WITH COMM[employer]ITY [employer] FOR ASSISTANCE WITH LOW TO NO INCOME TO PATIENT. RESOURCES THAT PATIENT MAY BE ABLE TO FOLLOW UP UPON DISCHARGE. PT EDUCATED ON EACH RESOURCE AND UNDERSTANDING HOW TO FOLLOW UP TO SEE IF QUALIFIED FOR EACH RESOURCE.
--- NOTE | 2019-08-03 12:00 | NUR ---
DANIELLE REMOVED, PT TOLERATED WELL. TIP INTACT. 750 CC'S OUTPUT NOTED.
[2019-08-03] MEDS: HYDROCODONE/APAP 10MG-325MG TAB PO PRN (12:58)
--- NOTE | 2019-08-03 14:44 | Consultation ---
DATE OF CONSULTATION: Cardiology Consultation REASON FOR CONSULTATION: Heart failure. HISTORY OF PRESENT ILLNESS: This is a 39-year-old man with a history of chronic kidney disease, hypertension, diabetes mellitus, hyperlipidemia, and obesity, present in the emergency department with generalized weakness, fatigue, lethargy, lower extremity swelling, and shortness of breath. Symptoms were [id number] in intensity, progressively worsening over the last few weeks. REVIEW OF SYSTEMS: A 12-point review of system was conducted, is negative as stated above in the HPI. PAST MEDICAL HISTORY: As stated above in the HPI. PAST SURGICAL HISTORY: Central line placement. PAST FAMILY HISTORY: Noncontributory to current illness. ALLERGIES: SULFA. MEDICATIONS: See medication reconciliation form. PHYSICAL EXAMINATION: VITAL SIGNS: Temperature is 98.4, heart rate is 98, respirations are 19, blood pressure is 171/88, and ox saturation 96% on room air. GENERAL: Well appearing, in no apparent distress. Alert and oriented x3. HEAD: Normocephalic and atraumatic. Eyes, the extraocular muscles are intact. Conjunctivae clear. NECK: No JVD. No bruits. CARDIOVASCULAR: Regular rate and rhythm. LUNGS: Diminished breath sounds at bases. ABDOMEN: Soft, nontender, nondistended. EXTREMITIES: Trace edema. NEUROLOGIC: No focal deficits noted. LABORATORY DATA: Reviewed. Notable for hemoglobin is 7.4. Creatinine is 15.16, BUN is 89. Chest x-ray shows cardiomegaly, mild pulmonary vascular congestion. IMPRESSION: 1. End-stage renal disease, now on hemodialysis. 2. Hypertension. 3. Hyperlipidemia. 4. Obesity. 5. Diabetes mellitus. 6. Diastolic heart failure. 7. Trivial pericardial effusion. RECOMMENDATIONS: The patient has a volume overloaded state with uremia and anemia. Volume management per Nephrology. Continue to titrate antihypertensives. We will continue to monitor clinically. DO YANELIS Otto/MODL /[id number]
[2019-08-03] MEDS: SEVELAMER CARBONATE 800 MG TAB PO SCH (15:54)
[2019-08-03] MEDS: METOPROLOL SUCCINATE 50 MG TAB XL PO SCH (15:54)
[2019-08-03] MEDS ORDERED: EPOETIN ALFA-EPBX 10,000 UNIT/ML VIAL SC SCH (16:00)
--- NOTE | 2019-08-03 18:37 | NUR ---
SPOKE WITH DR ALVARADO CONCERNING PT'S ELEVATED BLOOD PRESSURE. INFORMED HIM PT WILL BE RECEIVING DIALYSIS AGAIN TODAY AND PER DR DANIELS WILL RECEIVE MORE AGGRESSIVE TREATMENT. NO NEW ORDERS GIVEN. WILL CONTINUE TO MONITOR.
--- NOTE | 2019-08-03 23:00 | NUR ---
DIALYSIS STARTED.SO ANTIBIOTICS PENDING TO ADMINISTER.
[2019-08-04] VITALS (8 sets, daily range): BP systolic 133–189; BP diastolic 70–109
[2019-08-04] MEDS: HYDROCODONE/APAP 10MG-325MG TAB PO PRN (00:32)
[2019-08-04] MEDS: CEFTRIAXONE SOD 1 GM/NS 50 ML 50 ML IV SCH ×2 (02:51→23:00)
--- NOTE | 2019-08-04 03:08 | NUR ---
Dialysis completed.2 litre removed bp checked and noted 153/97 mm of hg.
[2019-08-04 05:43] LABS: BASOPHILS # (AUTO) 0.1 (0.0-0.1); BASOPHILS % 0.9 % (0.0-1.0); EOSINOPHILS # (AUTO) 0.3 (0.0-0.4); EOSINOPHILS % 2.8 % (0.0-6.0); HEMATOCRIT 23.3 % (38.2-49.6); HEMOGLOBIN 7.8 g/dL (14.0-18.0); LYMPHOCYTES # (AUTO) 1.1 (1.0-3.2); LYMPHOCYTES % 11.9 % (18.0-39.1); MEAN CORPUSCULAR HEMOGLOBIN 29.8 pg (28-32); MEAN CORPUSCULAR HGB CONC 33.5 g/dL (31-35); MEAN CORPUSCULAR VOLUME 88.9 fL (81-99); MONOCYTES % 10.7 % (4.4-11.3); NEUTROPHILS # (AUTO) 6.5 (2.1-6.9); NEUTROPHILS % 73.2 % (38.7-80.0); PLATELET COUNT 207 x10e3/uL (140-360); RED BLOOD COUNT 2.62 x10e6/uL (4.3-5.7); RED CELL DISTRIBUTION WIDTH 13.2 % (11.7-14.4)
[2019-08-04 05:49] LABS: ALBUMIN 2.7 g/dL (3.5-5.0); ALBUMIN/GLOBULIN RATIO 0.7 (0.8-2.0); ANION GAP 17.1 mmol/L (8-16); CALCIUM 8.2 mg/dL (8.4-10.2); CREATININE, SERUM 10.38 mg/dL (0.72-1.25); POTASSIUM 4.1 mmol/L (3.5-5.1)
--- NOTE | 2019-08-04 06:58 | NUR ---
Bed side shift report given to oncoming Rn.stable condition.
[2019-08-04] MEDS: INSULIN REGULAR, HUMAN 100 UNIT/1 ML 3ML VIAL SQ SCH ×4 (07:30→21:00)
[2019-08-04] MEDS: AMLODIPINE BESYLATE 10 MG TAB PO SCH (08:37)
[2019-08-04] MEDS: CLONIDINE HCL 0.1 MG TAB PO SCH ×3 (08:37→20:30)
[2019-08-04] MEDS: SEVELAMER CARBONATE 800 MG TAB PO SCH ×3 (08:37→17:49)
[2019-08-04] MEDS: METOPROLOL SUCCINATE 50 MG TAB XL PO SCH ×2 (08:38→17:50)
--- NOTE | 2019-08-04 09:10 | Diagnostic Imaging Report ---
TECHNIQUE: Frontal view of the chest. INDICATION: ^CHF ^[id number] ^0815 ^Y COMPARISON: 08/01/2019 IMPRESSION: Lines and hardware: Interval placement of a right neck hemodialysis catheter with the tip projecting over the mid SVC. Heart and mediastinum: Stable. Lungs and pleura: No focal airspace consolidation. Stable minimal left basilar atelectasis. No pleural effusion. No pneumothorax. Soft tissues and bones: No acute abnormality. Signed by: Kanu Smalls MD on 08/04/2019 9:07 AM
--- NOTE | 2019-08-04 10:19 | Progress Note ---
DATE: Cardiology Progress Note SUBJECTIVE: The patient feeling better. Denies any chest pain or shortness of breath. He states that his fatigue level has decreased. OBJECTIVE: VITAL SIGNS: Temperature is 97.9, heart rate 81, respirations are 21, blood pressure is 158/96, and oxygen saturation 97% on room air. GENERAL: Well-appearing, in no apparent distress. CARDIOVASCULAR: Regular rate and rhythm. LUNGS: Clear to auscultation. ABDOMEN: Soft, nontender, and nondistended. EXTREMITIES: Trace edema. CARDIOVASCULAR MEDICATIONS: Reviewed. Include metoprolol succinate, clonidine, and amlodipine. LABORATORY DATA: Reviewed. Hemoglobin 7.8. Creatinine is 10.3 and potassium 4.1. IMPRESSION: 1. End-stage renal disease, now on hemodialysis. 2. Hypertension. 3. Hyperlipidemia. 4. Obesity. 5. Diabetes mellitus. 6. Chronic diastolic heart failure. 7. Trivial pericardial effusion. RECOMMENDATIONS: Continue hemodialysis as you are with volume removal. Continue current cardiovascular medications for better blood pressure control. If after hemodialysis his blood pressure remains elevated, can increase clonidine to 0.2 mg t.i.d. We will continue to follow along. Demetri Baldwin DO BM/MODL /[id number]
--- NOTE | 2019-08-04 10:50 | NUR ---
Pt unavailable at this time. Pt having dialysis treatment. Will follow up as able. SEPIDEH [facility] O: [phone]
--- NOTE | 2019-08-04 14:08 | NUR ---
FAXED UPDATED TO JUAN F AT [facility] [place] WAS TOLD APPROVED WAITING FOR CHAIR ASSIGNMENT FROM FACILITY OF CHOICE.
--- NOTE | 2019-08-04 16:28 | NUR ---
GOT APPROVAL FOR CHAIR AT [place] [id number] [address], M, W AND FRIDAYS AT 1:30PM. COPY PUT IN CHART AND GIVEN TO PT FOR RECORDS.
[2019-08-04] MEDS: EPOETIN ALFA-EPBX 10,000 UNIT/ML VIAL SC SCH (20:20)
[2019-08-05] VITALS (8 sets, daily range): BP systolic 130–163; BP diastolic 73–94
[2019-08-05] MEDS: SEVELAMER CARBONATE 800 MG TAB PO SCH ×3 (08:16→17:25)
[2019-08-05] MEDS: AMLODIPINE BESYLATE 10 MG TAB PO SCH (08:17)
[2019-08-05] MEDS: CLONIDINE HCL 0.1 MG TAB PO SCH ×3 (08:17→17:26)
[2019-08-05] MEDS: METOPROLOL SUCCINATE 50 MG TAB XL PO SCH ×2 (08:18→17:26)
[2019-08-05] MEDS: INSULIN REGULAR, HUMAN 100 UNIT/1 ML 3ML VIAL SQ SCH ×3 (08:26→16:30)
--- NOTE | 2019-08-05 15:36 | Progress Note ---
DATE: Cardiology Progress Note SUBJECTIVE: The patient is feeling better, increased energy. OBJECTIVE: VITAL SIGNS: Stable. He is afebrile. Heart rate, respirations, blood pressure, and oxygen saturation are within normal limits. Blood pressure is 130/73. GENERAL: Well-appearing, no apparent distress. CARDIOVASCULAR: Regular rate and rhythm. LUNGS: Clear to auscultation. ABDOMEN: Soft, nontender, and nondistended. EXTREMITIES: No clubbing, cyanosis, or edema. LABORATORY DATA: Reviewed. CARDIOVASCULAR MEDICATIONS: Reviewed. IMPRESSION: 1. End-stage renal disease. 2. Hypertension. 3. Obesity. 4. Diabetes mellitus. 5. Chronic diastolic heart failure. 6. Trivial pericardial effusion. RECOMMENDATIONS: Continue hemodialysis for volume removal. His blood pressure seems to be controlled at this point in time. If need be, can increase clonidine to 0.2 t.i.d. We will continue to follow along. The patient is stable from a cardiovascular standpoint. Demetri Baldwin DO BM/MODL /[id number]
== END 2019-08-05 17:33 | disposition home or self-care (01) | DRG 291 ==
LOC: ER 19:11 → MED/SURG 08-02 01:34
PROC: 0JH63XZ Insertion of Tunneled Vascular Access Device into Chest Subcutaneous Tissue and Fascia, Percutaneous Approach (ICD-10-PCS; principal; 2019-08-02)
PROC: 02H633Z Insertion of Infusion Device into Right Atrium, Percutaneous Approach (ICD-10-PCS; 2019-08-02)
PROC: B548ZZA Ultrasonography of Superior Vena Cava, Guidance (ICD-10-PCS; 2019-08-02)
PROC: 5A1D70Z Performance of Urinary Filtration, Intermittent, Less than 6 Hours Per Day (ICD-10-PCS; 2019-08-02)
PROC: 30233N1 Transfusion of Nonautologous Red Blood Cells into Peripheral Vein, Percutaneous Approach (ICD-10-PCS; 2019-08-02)
PROC: 5A1D70Z Performance of Urinary Filtration, Intermittent, Less than 6 Hours Per Day (ICD-10-PCS; 2019-08-03)
PROC: 5A1D70Z Performance of Urinary Filtration, Intermittent, Less than 6 Hours Per Day (ICD-10-PCS; 2019-08-04)
DX: I13.2 Hypertensive heart and chronic kidney disease with heart failure and with stage 5 chronic kidney disease, or end stage renal disease (principal); N18.6 End stage renal disease; I50.33 Acute on chronic diastolic (congestive) heart failure; N39.0 Urinary tract infection, site not specified; E87.2 Acidosis; I31.3 Pericardial effusion (noninflammatory); N17.9 Acute kidney failure, unspecified; E11.22 Type 2 diabetes mellitus with diabetic chronic kidney disease; Z99.2 Dependence on renal dialysis; E78.5 Hyperlipidemia, unspecified; I89.0 Lymphedema, not elsewhere classified; R79.89 Other specified abnormal findings of blood chemistry; E66.9 Obesity, unspecified; D63.1 Anemia in chronic kidney disease; Z68.39 Body mass index [BMI] 39.0-39.9, adult; Z88.2 Allergy status to sulfonamides; Z11.59 Encounter for screening for other viral diseases; Z79.4 Long term (current) use of insulin
CPT/HCPCS: 36415; 36558; 51700; 71045; 71046; 74470; 76937; 77001; 80048; 80053; 81001; 82150; 82550; 82553; 82948; 83690; 83880; 83970; 84100; 84443; 84484; 85025; 85610; 85730; 86704; 86706; 86803; 86850; 86900; 86920; 87040; 87086; 87340; 87635; 93005; 93306; 99152; 99153; 99284; C1769; C1892; J0690; J0696; J1644; J1817; J1940; J2250; J3010; J7030; J7050; P9016

== ENCOUNTER 2019-10-07 00:06 | Emergency (ER) | payer SELFPAY ==
[~2019-10-07] VITALS: Ht 165.1 cm; Wt 103.4 kg
--- NOTE | 2019-10-07 00:41 | Emergency Department Note ---
History of Present Illnes History of Present Illness Chief Complaint: Neurological History of Present Illness This is a 39 year old male right facial droop that started Friday but has become more severe this morning after dialysis. Pateint able to ambulate independently . Historian: Patient Arrival Mode: Car Onset (how long ago): day(s) (3) Location: RIGHT FACE Quality: WEAKNESS Radiation: Reports non-radiation Severity: moderate Onset quality: gradual Duration (how long): day(s) (3) Progression: worsening Chronicity: new Context: Denies recent illness, Denies recent surgery, Denies trauma/injury Relieving factors: none Exacerbating factors: none Associated symptoms: Reports denies other symptoms Past Medical/Family History Physician Review I have reviewed the patient's past medical and family history. Any updates have been documented here. Past Medical History Recent Fever: No Clinical Suspicion of Infectio: No New/Unexplained Change in Ment: No Past Medical History: Hypertension, Diabetes, Hyperlipedemia, Chronic Kidney Disease Other Medical History: L leg LYMPHEDEMA Past Surgical History: None Other Surgery: TONSILLECTOMY Social History Smoking Cessation: Unknown if ever smoked Counseling Performed: No Alcohol Use: None Any Illegal Drug Use: No Other Last Tetanus: UNknown Any Pre-Existing Lines (PICC,: Yes (right chest port) Review of Systems Review of Systems Constitutional: Reports no symptoms EENTM: Reports no symptoms Cardiovascular: Reports no symptoms Respiratory: Reports no symptoms Gastrointestinal: Reports no symptoms Genitourinary: Reports no symptoms Musculoskeletal: Reports no symptoms Integumentary: Reports no symptoms Neurological: Reports as per HPI Psychological: Reports no symptoms Endocrine: Reports no symptoms Hematological/Lymphatic: Reports no symptoms Physical Exam Related Data Allergies: Coded Allergies: Sulfa (Sulfonamide Antibiotics) (Verified Allergy, Mild, rash, 02/15/19) Triage Vital Signs Vital Signs Date Time Temp Pulse Resp B/P (MAP) Pulse Ox O2 Delivery O2 Flow Rate FiO2 10/07/19 00:14 98.6 70 20 180/92 98 Room Air Vital signs reviewed: Yes Physical Exam CONSTITUTIONAL Constitutional: Present well-developed, Present well-nourished; Absent distressed HENT HENT: Present normocephalic, Present atraumatic, Present oropharynx clear/moist, Present nose normal HENT L/R: Present left ext ear normal, Present right ext ear normal EYES Eyes: Reports PERRL, Reports conjunctivae normal NECK Neck: Present ROM normal PULMONARY Pulmonary: Present effort normal, Present breath sounds normal CARDIOVASCULAR Cardiovascular: Present regular rhythm, Present heart sounds normal, Present capillary refill normal, Present normal rate GASTROINTESTINAL Abdominal: Present soft, Present nontender, Present bowel sounds normal GENITOURINARY Genitourinary: Present exam deferred SKIN Skin: Present warm, Present dry MUSCULOSKELETAL Musculoskeletal: Present ROM normal NEUROLOGICAL Neurological: Present alert, Present oriented x 3, Present cranial nerve deficit (RIGTH 7TH NERVE, FOREHEAD INVOLVED); Absent sensory deficit, Absent abnormal DTRs, Absent abnormal coordination, Absent abnormal gait, Absent weakness PSYCHOLOGICAL Psychological: Present mood/affect normal, Present judgement normal Results Imaging Imaging results reviewed: Yes Impressions Procedure: [id number] CT/CT BRAIN WO Exam Date: Exam Time: REPORT STATUS: Signed EXAMINATION: Head CT without contrast. HISTORY:Right facial droop. COMPARISON:CT brain from 01/20/2017. TECHNIQUE: Multidetector axial images were obtained from the foramen magnum to the vertex without contrast. The images were reconstructed using brain and bone algorithms. Thin section brain images were reformatted into coronal and sagittal planes. Dose modulation, iterative reconstruction, and/or weight based adjustment of the mA/kV was utilized to reduce the radiation dose to as low as reasonably achievable. Intravenous contrast: None IMAGE QUALITY: Acceptable. FINDINGS: Skull/scalp: No lytic or blastic. lesions. No surgical changes. Parenchyma: No abnormal density. No acute hemorrhage, mass or acute major vascular territorial infarct. Arteries: No density suggestive of thrombosis. Dural sinuses: No abnormal density suggestive of thrombosis. Ventricles: Unchanged mild compensated dilatation due to volume loss. No acute hydrocephalus. Extra-axial spaces: No abnormal density. Brain volume: Mild generalized cerebral volume loss, advanced for patient's given age. Craniocervical junction: No mass, Chiari malformation, or basilar invagination. Sella: No mass. Paranasal/mastoid sinuses: Imaged portions unremarkable. IMPRESSION: No acute intracranial abnormality. Signed by: Dr. Josephine Loya M.D. on 10/07/2019 12:54 AM Dictated By: JOSEPHINE LOYA MD Transcribed By: GERARD on 10/07/1955 COPY TO: NEHAL WADE MD~ Assessment & Plan Medical Decision Making MDM PT WITH RIGHT FACIAL DROOP WITH FOREHEAD INVOLVEMENT THAT IS APPARENT BELLS PALSEY CT WILLEM ORDERED TO EVAL FOR INTRACRANIAL MASS, NEUROMA PT DISCHARGED WITH VALTRES 1000 MG PO TID FOR 7 DAYS AND MEDROL DOSE PACK DIRECTED Assessment & Plan Final Impression: (1) Medina's palsy Depart Disposition: HOME, SELF-CARE Last Vital Signs Date Time Temp Pulse Resp B/P (MAP) Pulse Ox O2 Delivery O2 Flow Rate FiO2 10/07/19 00:14 98.6 70 20 180/92 98 Room Air Home Meds Reported Medications Clonidine Hcl (CLONIDINE HCL) 0.1 Mg Tablet, 1 TAB PO TID, #90 TAB 02/16/19 Doxycycline Hyclate (DOXYCYCLINE HYCLATE) 100 Mg Capsule, 100 MG PO DAILY, CAP 06/17/18 Vitamin E Mixed (VITAMIN E) 400 Unit Capsule, 1 TAB PEG DAILY 06/15/18 [b12] No Conflict Check, 1 TAB PEG DAILY 06/15/18 Multivitamin (MULTI-VITAMIN DAILY) 1 Each Tablet, 1 TAB PO DAILY 06/15/18 Lisinopril (LISINOPRIL) 10 Mg Tablet, 10 MG PO DAILY 06/15/18 Fenofibrate (TRICOR) 145 Mg Tab, 160 MG PO DAILY, #30 TAB 03/03/18 Pravastatin Sodium (PRAVASTATIN SODIUM) 80 Mg Tablet, 80 MG PO DAILY THERAPEUTICALLY SUBSTITUTED WITH SIMVASTATIN 40MG 03/03/18 Insulin Lispro (HUMALOG) 100 Unit/1 Ml Insuln.pen, 16 UNIT SQ TIDWM 03/03/18 Insulin Detemir (LEVEMIR) 100 Unit/1 Ml Vial, 26 UNIT SQ BID 03/03/18 Metoprolol Tartrate (METOPROLOL TARTRATE) 25 Mg Tablet, 25 MG PO BID, #60 TAB 08/24/17 Amlodipine Besylate (AMLODIPINE BESYLATE) 10 Mg Tablet, 10 MG PO DAILY, #30 TAB 08/24/17 NEHAL WADE MD Oct 07, 2019 00:41
--- OUTSIDE RECORDS SUMMARY | 2019-10-07 00:43 | XMS REPORT | Continuity of Care Document ---
Author Author [facility] Organization [facility] Address [address] [place] [address] Phone Unavailable Care Team Providers Care Prison Officer Name Role Phone PRINCE HALE MD PCP PRINCE HALE Attphys Unavailable Merlene WADE Attphys Unavailable PRINCE HALE Admphys Unavailable Payers Payer Name Policy Type Policy Number Effective Date Expiration Date S shiraz Miscellaneous Ppo [id number] 2018 00:00:00 [facility] [place] [id number] 2018 00:00:00 [facility] Ppo [id number] 2015 00:00:00 [facility] Cigna Hmo [id number] 2010 00:00:00 [facility] Problems Condition Name Condition Details Condition Category Status Onset Date Resolution Date Last Treatment Date Treating Clinician Comments Source Dehydration Dehydration Problem Active 2015-10-04 00:00:00 [facility] Hypertension Hypertension Problem Active 2015-10-04 00:00:00 [facility] Cellulitis and abscess of lower extremity Cellulitis and abscess of leg Problem Active [facility] Diabetic ketoacidosis DKA (diabetic ketoacidoses) Problem Active [facility] Severe sepsis Severe sepsis Problem Active [facility] Abdominal pain Abdominal pain Problem Active [facility] Cellulitis Cellulitis Problem Active [facility] Fever Fever Problem Active [facility] Allergies, Adverse Reactions, Alerts Allergy Name Allergy Type Status Severity Reaction(s) Onset Date Inacti ve Date Treating Clinician Comments Source Sulfa (Sulfonamide Antibiotics) Allergy to Substance Active Mild rash 2019-02-15 00:00:00 [facility] Medications Ordered Medication Name Filled Medication Name Start Date Stop Da te Current Medication? Ordering Clinician Indication Dosage Frequency Signature (SIG) Comments Components Source Amlodipine Besylate 10 Mg Tablet Amlodipine Besylate 10 Mg Tablet Yes 10 Daily [facility] B12 B12 Yes 1 Daily [facility] Clonidine Hcl 0.1 Mg Tablet Clonidine Hcl 0.1 Mg Tablet Yes 1 Three Times A Day [facility] Doxycycline Hyclate 100 Mg Capsule Doxycycline Hyclate 100 Mg Capsule Yes 100 Daily [facility] Fenofibrate (Tricor) 145 Mg Tab Fenofibrate (Tricor) 145 Mg Tab Yes 160 Daily [facility] Insulin Detemir (Levemir) 100 Unit/1 Ml Vial Insulin D etemir (Levemir) 100 Unit/1 Ml Vial Yes 26 Twice A Day [facility] Insulin Lispro (Humalog) 100 Unit/1 Ml Insuln.pen Insu jackson Lispro (Humalog) 100 Unit/1 Ml Insuln.pen Yes 16 Three Times Daily With Meals [facility] Lisinopril 10 Mg Tablet Lisinopril 10 Mg Tablet Yes 10 Daily [facility] Metoprolol Tartrate 25 Mg Tablet Metoprolol Tartrate 25 Mg Tablet Yes 25 Twice A Day [facility] Multivitamin (Multi-Vitamin Daily) 1 Each Tablet Multi vitamin (Multi-Vitamin Daily) 1 Each Tablet Yes 1 Daily [facility] Pravastatin Sodium 80 Mg Tablet Pravastatin Sodium 80 Mg Tablet Yes 80 Daily [facility] Vitamin E Mixed (Vitamin E) 400 Unit Capsule Vitamin E Mixed (Vitamin E) 400 Unit Capsule Yes 1 Daily [facility] Aspirin (Aspir 81) 81 Mg Tablet., Aspirin (Aspir 81) 81 Mg Tab let., 2018-06-15 00:00:00 No Daily [facility] Ondansetron (Zofran Odt) 4 Mg Tab.rapconner, 4 Mg Ondanse nancy (Zofran Odt) 4 Mg Tab.rapdis, 4 Mg 2018-06-15 00:00:00 No 4 Every 6 Hours [facility] Tizanidine Hcl 4 Mg Tablet, 4 Mg Oral Tizanidine Hcl 4 Mg Tablet , 4 Mg Oral 2018-06-15 00:00:00 No 4 Bedtime as needed fo r Muscle Spasms [facility] Atorvastatin Calcium 10 Mg Tablet, 10 Mg Oral Atorvast atin Calcium 10 Mg Tablet, 10 Mg Oral 2018-03-03 00:00:00 No 10 Today At 9:00 PM [facility] Calcium Acetate 667 Mg Tablet, 667 Mg Oral Calcium Ceasar walsh 667 Mg Tablet, 667 Mg Oral 2018-03-03 00:00:00 No 667 Daily [facility] Calcium Carbonate 500 Mg Tablet, 500 Mg Oral Calcium C arbonate 500 Mg Tablet, 500 Mg Oral 2018-03-03 00:00:00 No 500 As Needed [facility] Clopidogrel Bisulfate (Clopidogrel) 75 Mg Tablet, 75 M g Oral Clopidogrel Bisulfate (Clopidogrel) 75 Mg Tablet, 75 Mg Oral 2018-03-03 00:00:00 No 75 Daily [facility] Diclofenac Epolamine (Flector) 1 Each Adh..patch, Dicl ofenac Epolamine (Flector) 1 Each Adh..patch, 2018-03-03 00:00:00 No Every 4 Hours as needed for Pain [facility] Docusate Sodium 100 Mg Capsule, 100 Mg Oral Docusate S odium 100 Mg Capsule, 100 Mg Oral 2018-03-03 00:00:00 No 100 Twice A Day for Constipation [facility] Famotidine (Pepcid) 20 Mg Tablet, 40 Mg Famotidine (Pepcid) 20 Mg Tablet, 40 Mg 2018-03-03 00:00:00 No 40 Daily [facility] Insulin Aspart (Novolog) 100 Units/1 Ml Inj, Insulin A spart (Novolog) 100 Units/1 Ml Inj, 2018-03-03 00:00:00 No [facility] Levetiracetam (Keppra) 500 Mg Tablet, 250 Mg Oral Leve tiracetam (Keppra) 500 Mg Tablet, 250 Mg Oral 2018-03-03 00:00:00 No 250 As N eeded [facility] Levetiracetam 500 Mg Tablet, 250 Levetiracetam 500 Mg Tablet, 25 0 2018-03-03 00:00:00 No 250 Daily [facility] Lorazepam 0.5 Mg Tablet, 0.5 Mg Oral Lorazepam 0.5 Mg Tablet, 0. 5 Mg Oral 2018-03-03 00:00:00 No .5 Every 6 Hours [facility] Magnesium Hydroxide (Milk Of Magnesia) 2,400 Mg/10 Ml Oral.susp, 2400 Mg Magnesium Hydroxide (Milk Of Magnesia) 2,400 Mg/10 Ml Oral.susp, 2400 Mg 2018-03-03 00:00:00 No 2400 As Needed [facility] Oxycodone Hcl 20 Mg Tablet, 10 Mg Oral Oxycodone Hcl 20 Mg Table t, 10 Mg Oral 2018-03-03 00:00:00 No 10 As Needed [facility] Phenytoin Sodium Extended (Dilantin) 100 Mg Capsule, 2 00 Phenytoin Sodium Extended (Dilantin) 100 Mg Capsule, 200 2018-03-03 00:00:00 No 200 Every 8 Hours [facility] Scopolamine Hydrobromide (Transderm-Scop) 1 Each Patch .td72, 1.5 Mg Transderm Scopolamine Hydrobromide (Transderm-Scop) 1 Each Patch.td72, 1.5 Mg Transderm 2018-03-03 00:00:00 No 1.5 As Needed [facility] Bumetanide 1 Mg Tablet, 2 Mg Oral Bumetanide 1 Mg Tablet, 2 Mg O ral 2017-08-24 00:00:00 No 2 Daily [facility] Clonidine Hcl 0.1 Mg Tablet, 1 Tab Oral Clonidine Hcl 0.1 Mg Tablet, 1 Tab Oral 2017-08-24 00:00:00 No 1 Three Times A Day [facility] Hydralazine Hcl 10 Mg Tablet, 100 Mg Oral Hydralazine Hcl 10 Mg Tablet, 100 Mg Oral 2017-08-24 00:00:00 No 100 Daily [facility] Labetalol Hcl 200 Mg Tablet, 300 Mg Oral Labetalol Hcl 200 Mg Tablet, 300 Mg Oral 2017-08-24 00:00:00 No 300 Daily [facility] Losartan Potassium 100 Mg Tablet, 100 Mg Oral Losartan Potassium 100 Mg Tablet, 100 Mg Oral 2017-08-24 00:00:00 No 100 Daily [facility] Metolazone 5 Mg Tablet, 5 Mg Oral Metolazone 5 Mg Tablet, 5 Mg O ral 2017-08-24 00:00:00 No 5 Twice A Day [facility] Acebutolol Hcl 200 Mg Capsule, 400 Mg Oral Acebutolol Hcl 200 Mg Capsule, 400 Mg Oral 2017-08-23 00:00:00 No 400 Three Times A Day [facility] Amlodipine Besylate 5 Mg Tablet, 5 Mg Oral Amlodipine Besylate 5 Mg Tablet, 5 Mg Oral 2017-08-23 00:00:00 No 5 Daily [facility] Doxycycline Hyclate 100 Mg Capsule, 100 Mg Oral Doxycy anders Hyclate 100 Mg Capsule, 100 Mg Oral 2017-08-23 00:00:00 No 100 Twi ce A Day [facility] Glimepiride 2 Mg Tablet, 2 Mg Oral Glimepiride 2 Mg Tablet, 2 Mg Oral 2017-08-23 00:00:00 No 2 Twice A Day [facility] Irbesartan/Hydrochlorothiazide (Irbesart an-Hctz 300-12.5 Mg Tb) 1 Each Tablet, 1 Tab Oral Irbesartan/Hydrochlorothiazide (Irbesart an-Hctz 300-12.5 Mg Tb) 1 Each Tablet, 1 Tab Oral 2017-08-23 00:00:00 No 1 Daily [facility] Levofloxacin (Levaquin) 500 Mg Tablet, 500 Mg Oral Lev ofloxacin (Levaquin) 500 Mg Tablet, 500 Mg Oral 2017-08-23 00:00:00 No 500 D aily [facility] Multivitamin (Multi-Vitamin Daily) 1 Each Tablet, 1 Ta b Oral Multivitamin (Multi-Vitamin Daily) 1 Each Tablet, 1 Tab Oral 2017-08-23 00:00:00 No 1 Daily [facility] Cholecalciferol (Vitamin D3) (Vitamin D) 2,000 Unit Ca psule, 2000 Unit Oral Cholecalciferol (Vitamin D3) (Vitamin D) 2,000 Unit Capsule, 2000 Unit Oral 2017-01-20 00:00:00 No 2000 Use As Directed [facility] Clonidine Hcl 0.1 Mg Tablet, 1 Tab Oral Clonidine Hcl 0.1 Mg Tablet, 1 Tab Oral 2017-01-20 00:00:00 No 1 Twice A Day [facility] Fenofibrate (Tricor) 145 Mg Tab, 160 Mg Oral Fenofibra te (Tricor) 145 Mg Tab, 160 Mg Oral 2017-01-20 00:00:00 No 160 Daily [facility] Losartan Potassium 100 Mg Tablet, 100 Mg Oral Losartan Potassium 100 Mg Tablet, 100 Mg Oral 2017-01-20 00:00:00 No 100 Daily [facility] Metformin Hcl 500 Mg Tablet, 1000 Mg Oral Metformin Hc l 500 Mg Tablet, 1000 Mg Oral 2017-01-20 00:00:00 No 1000 Twice A Day [facility] Procedures Procedure Date / Time Performed Performing Clinician [facility] e Computed tomography of brain without radiopaque contrast 00:00:00 NEHAL WADE [facility] Echo guide for biopsy 2019-02-15 00:00:00 ETHAN DANIELS [facility] EXCISION OF LEFT KIDNEY, PERCUTANEOUS APPROACH, DIAGNOSTIC 2 00:00:00 ARIAN [facility] Mod Sedate Initial >5 Yrs 2019-02-15 00:00:[address] [facility] Mod Sedate Add 15 Min >5YRS 2019-02-15 00:00:00 ARIAN GIL [facility] Ultrasound, renal 2019-02-11 00:00:[address] [facility] CT of abdomen and pelvis without contrast 2018-06-14 00:00:00 MICHAEL ESCOBARISIDRA Guadarrama Tali [facility] Encounters Start Date/Time End Date/Time Encounter Type Admission Type [facility] Care Department Encounter ID Source 2019-03-23 19:10:00 2019-03-23 23:49:00 Departed Emergency Room 1 NEHAL WADE [facility] [id number] [facility] 2019-02-10 12:56:00 2019-02-16 18:47:00 Discharged Inpatient 1 PRINCE HALE [facility] [id number] [facility] 2018-06-14 21:48:00 2018-06-17 12:58:00 Discharged Inpatient 1 NEHAL WADE [facility] [id number] [facility] 2018-03-03 13:20:00 2018-03-08 18:32:00 Discharged Inpatient [facility] [id number] [facility] 2017-08-18 07:15:00 2017-08-24 15:08:00 Discharged Inpatient 1 [facility] [id number] [facility] 2017-01-20 08:25:00 2017-01-23 18:14:00 Discharged Inpatient ER PRINCE HALE [facility] [id number] [facility] Results Test Description Test Time Test Comments Results Result Comments Source CHEST SINGLE (PORTABLE) 2019-08-04 09:06:00 [facility] [address] [place] [address] Patient Name: GABRIELA MERCER MR #: [id number] : 1980 Age/Sex: 39/M Req #: [id number] Adm Physician: PRINCE HALE MD Ordered by: LU ALVARADO MD Report #: [id number] Location: MED/SURG Room/Bed: [facility] Procedure: [id number] DX/CHEST SINGLE (PORTABLE) Exam Date: 08/04/19 Exam Time: 814 REPORT STATUS: Signed TECHNIQUE: Frontal view of the chest. INDICATION: CHF [id number] COMPARISON: 08/01/2019 IMPRESSION: Lines and hardware: Interval placement of a right neck hemodialysis catheter with the tip projecting over the mid SVC. Heart and mediastinum: Stable. Lungs and pleura: No focal airspace consolidation. Stable minimal left basilar atelectasis. No pleural effusion. No pneumothorax. Soft tissues and bones: No acute abnormality. Signed by: Kanu Gandara MD on 08/04/2019 9:07 AM Dictated By: KANU GANDARA DO 6 Transcribed By: GERARD on 08/04/19906 COPY TO: LU ALVARADO MD MOD SEDATE ADD 15 MIN>5YRS 2019-08-02 13:06:00 [place] [address] Patient Name: GABRIELA MERCER MR #: [id number] : 1980 Age/Sex: 39/M Req #: [id number] [facility] Physician: PRINCE HALE MD Ordered by: LD RUIZ MD Report #: [id number] Location: MED/SURG Room/Bed: [facility] Procedure: [id number] DX/MOD SEDATE ADD 15 MIN>5YRS Exam Date: 08/02/19 Exam Time: 1215 REPORT STATUS: Signed Tunneled dialysis catheter insertion. History: Renal failure. Modality: Sonography and fluoroscopy. Sedation: Versed 1.5 mg and fentanyl 75 mcg was given intravenously for conscious sedation. Vital signs were monitored throughout the procedure by a nurse, and remained stable. Physician intra-service time was 20. Flotation Tender Helper: Ld Ruiz MD Asphalt Coater: None. Approach: Right internal jugular vein Estimated blood loss: < 5 cc. Specimen: None. Fluoroscopy Time: 1.1 min. Dose (Ka,r): 12.3 mGy. Technique: Informed written consent was obtained. Discussion of risks, benefits, and alternatives were made with the patient. The patient expressed understanding and agreed to proceed. All elements maximal sterile barrier technique was utilized for this procedure, including utilization of sterile scrub solution for skin prep, a large sterile sheet to cover the areas of the patient that were not prepped, and hand hygiene, mask, head covering, and sterile gown for performing radiologist and scrub technologist. The skin was anesthetized with 2% lidocaine.Ultrasound evaluation showed a patent and compressible right inter nal jugular vein, which was punctured under direct real-time ultrasound guidance with a micropuncture needle. An ultrasound image was saved to PACS. A 0.018 inch wire was placed through the needle into the right atrium. A 4 Hong Konger micropuncture sheath was placed and 0.035 wire advanced into the IVC. A subcutaneous tunnel was created in the right anterior chest wall by blunt dissection. A 19 cm tip to cuff 15.5 [place]er palindrome catheter was brought through the tunnel. The vessel tract was serially dilated over wire. A peel- away sheath was placed in the right IJ vein and the catheter was advanced through the sheath, with its distal tip terminating in the superior right atrium. The peel-away sheath was removed. The ports were flushed and aspirated easily following placement. The lumens were locked with heparin. The catheter was sutured to the skin to secure its placement. The small jugular incision site was closed using Dermabond. A resorbable percent suture is placed at the catheter exit site. Vital signs were monitored throughout the procedure by a nurse, and remained stable. The patient tolerated the procedure well and left the department in the same condition. Results: Spot radiograph of the chest demonstrates the new dialysis catheter to lie in the expected position with its tip overlying the superior right atrium. Impression: Successful, uncomplicated placement of a right internal jugular tunneled dialysis catheter using sonographic and fluoroscopic guidance and conscious sedation. Signed by: Dr. Ld Ruiz MD on 08/02/2019 1:09 PM Dictated By: LD RUIZ MD 1445 Transcribed By: GERARD on 08/18/19 1445 COPY TO: LD RUIZ MD MOD SEDATE INITIAL >5 YRS 2019-08-02 13:06:00 [place] [address] Patient Name: GABRIELA MERCER MR #: [id number] : 1980 Age/Sex: 39/M Req #: [id number] Adm Physician: PRINCE HALE MD Ordered by: LD RUIZ MD Report #: [id number] Location: MED/SURG Room/Bed: [facility] Procedure: [id number] DX/MOD SEDATE INITIAL >5 YRS Exam Date: 08/02/19 Exam Time: 1159 REPORT STATUS: Signed Tunneled dialysis catheter insertion. History: Renal failure. Modality: Sonography and fluoroscopy. Sedation: Versed 1.5 mg and fentanyl 75 mcg was given intravenously for conscious sedation. Vital signs were monitored throughout the procedure by a nurse, and remained stable. Physician intra-service time was 20. Flotation Tender Helper: Ld Ruiz MD Asphalt Coater: None. Approach: Right internal jugular vein Estimated blood loss: < 5 cc. Specimen: None. Fluoroscopy Time: 1.1 min. Dose (Ka,r): 12.3 mGy. Technique: Informed written consent was obtained. Discussion of risks, benefits, and alternatives were made with the patient. The patient expressed understanding and agreed to proceed. All elements maximal sterile barrier technique was utilized for this procedure, including utilization of sterile scrub solution for skin prep, a large sterile sheet to cover the areas of the patient that were not prepped, and hand hygiene, mask, head covering, and sterile gown for performing radiologist and scrub technologist. The skin was anesthetized with 2% lidocaine.Ultrasound evaluation showed a patent and compressible right internship coordinator al jugular vein, which was punctured under direct real-time ultrasound guidance with a micropuncture needle. An ultrasound image was saved to PACS. A 0.018 inch wire was placed through the needle into the right atrium. A 4 Hong [place]er micropuncture sheath was placed and 0.035 wire advanced into the IVC. A subcutaneous tunnel was created in the right anterior chest wall by blunt dissection. A 19 cm tip to cuff 15.5 [place]er palindrome catheter was brought through the tunnel. The vessel tract was serially dilated over wire. A peel- away sheath was placed in the right IJ vein and the catheter was advanced through the sheath, with its distal tip terminating in the superior right atrium. The peel-away sheath was removed. The ports were flushed and aspirated easily following placement. The lumens were locked with heparin. The catheter was sutured to the skin to secure its placement. The small jugular incision site was closed using Dermabond. A resorbable percent suture is placed at the catheter exit site. Vital signs were monitored throughout the procedure by a nurse, and remained stable. The patient tolerated the procedure well and left the department in the same condition. Results: Spot radiograph of the chest demonstrates the new dialysis catheter to lie in the expected position with its tip overlying the superior right atrium. Impression: Successful, uncomplicated placement of a right internal jugular tunneled dialysis catheter using sonographic and f luoroscopic guidance and conscious sedation. Signed by: Dr. Ld Ruiz MD on 08/02/2019 1:09 PM Dictated By: LD RUIZ MD 1770 Transcribed By: GERARD on 08/31/19 6167 COPY TO: LD RUIZ MD IR CONSULT 2019-08-02 13:06:00 [place] [id number] [place] [address] Patient Name: GABRIELA MERCER MR #: [id number] : 1980 Age/Sex: 39/M Req #: [id number] Adm Physician: PRINCE HALE MD Ordered by: NEHAL WADE MD Report #: [id number] Location: MED/SURG Room/Bed: [facility] Procedure: [id number] DX/IR CONSULT Exam Date: Exam Time: REPORT STATUS: Signed Tunneled dialysis catheter insertion. History: Renal failure. Modality: Sonography and fluoroscopy. Sedation: Versed 1.5 mg and fentanyl 75 mcg was given intravenously for conscious sedation. Vital signs were monitored throughout the procedure by a nurse, and remained stable. Physician intra-service time was 20. Flotation Tender Helper: Ld Ruiz MD Asphalt Coater: None. Approach: Right internal jugular vein Estimated blood loss: < 5 cc. Specimen: None. Fluoroscopy Time: 1.1 min. Dose (Ka,r): 12.3 mGy. Technique: Informed written consent was obtained. Discussion of risks, benefits, and alternatives were made with the patient. The patient expressed understanding and agreed to proceed. All elements maximal sterile barrier technique was utilized for this procedure, including utilization of sterile scrub solution for skin prep, a large sterile sheet to cover the areas of the patient that were not prepped, and hand hygiene, mask, head covering, and aníbal rile gown for performing radiologist and scrub technologist. The skin was anesthetized with 2% lidocaine.Ultrasound evaluation showed a patent and compressible right internal jugular vein, which was punctured under direct real-time ultrasound guidance with a micropuncture needle. An ultrasound image was saved to PACS. A 0.018 inch wire was placed through the needle into the right atrium. A 4 Hong Konger micropuncture sheath was placed and 0.035 wire advanced into the IVC. A subcutaneous tunnel was created in the right anterior chest wall by blunt dissection. A 19 cm tip to cuff 15.5 [place] Konger palindrome catheter was brought through the tunnel. The vessel tract was serially dilated over wire. A peel-away sheath was placed in the right IJ vein and the catheter was advanced through the sheath, with its distal tip terminating in the superior right atrium. The peel-away sheath was removed. The ports were flushed and aspirated easily following placement. The lumens w ere locked with heparin. The catheter was sutured to the skin to secure its placement. The small jugular incision site was closed using Dermabond. A resorbable percent suture is placed at the catheter exit site. Vital signs were monitored throughout the procedure by a nurse, and remained stable. The patient tolerated the procedure well and left the department in the same condition. Results: Spot radiograph of the chest demonstrates the new dialysis catheter to lie in the expected position with its tip overlying the superior right atrium. Impression: Successful, uncomplicated placement of a right internal jugular tunneled dialysis catheter using sonographic and fluoroscopic guidance and conscious sedation. Signed by: Dr. Ld Ruiz MD on 08/02/2019 1:09 PM Dictated By: LD RUIZ MD 1300 Transcribed By: GERARD on 08/02/19 130 COPY TO: NEHAL WADE MD [facility] 2019-08-02 13:06:00 [place] [address] Patient Name: GABRIELA MERCER MR #: [id number] : 1980 Age/Sex: 39/M Req #: [id number] Adm Physician: PRINCE HALE MD Ordered by: PRINCE HALE MD Report #: [id number] Location: MED/SURG Room/Bed: [facility] Procedure: [id number] IR/ANTONIETA ALEJANDRA CENT REKHA PLMT OR REM Exam Date: 08/02/19 Exam Time: 1200 REPORT STATUS: Signed Tunneled dialysis catheter insertion. History: Renal failure. Modality: Sonography and fluoroscopy. Sedation: Versed 1.5 mg and fentanyl 75 mcg was given intravenously for conscious sedation. Vital signs were monitored throughout the procedure by a nurse, and remained stable. Physician intra-service time was 20. Flotation Tender Helper: Ld Ruiz MD Asphalt Coater: None. Approach: Right internal jugular vein Estimated blood loss: < 5 cc. Specimen: None. Fluoroscopy Time: 1.1 min. Dose (Ka,r): 12.3 mGy. Technique: Informed written consent was obtained. Discussion of risks, benefits, and alternatives were made with the patient. The patient expressed understanding and agreed to proceed. All elements maximal sterile barrier technique was utilized for this procedure, including utilization of sterile scrub solution for skin prep, a large sterile sheet to cover the areas of the patient that were not prepped, and hand hygiene, mask, head covering, and sterile gown for performing radiologist and scrub technologist. The skin was anesthetized with 2% lidocaine.Ultrasound evaluation showed a patent and compressible right in ternal jugular vein, which was punctured under direct real-time ultrasound guidance with a micropuncture needle. An ultrasound image was saved to PACS. A 0.018 inch wire was placed through the needle into the right atrium. A 4 Hong [place]er micropuncture sheath was placed and 0.035 wire advanced into the IVC. A subcutaneous tunnel was created in the right anterior chest wall by blunt dissection. A 19 cm tip to cuff 15.5 [place]er palindrome catheter was brought through the tunnel. The vessel tract was serially dilated over wire. A peel- away sheath was placed in the right IJ vein and the catheter was advanced through the sheath, with its distal tip terminating in the superior right atrium. The peel-away sheath was removed. The ports were flushed and aspirated easily following placement. The lumens were locked with heparin. The catheter was sutured to the skin to secure its placement. The small jugular incision site was closed using Dermabond. A resorbable percent suture is placed at the catheter exit site. Vital signs were monitored throughout the procedure by a nurse, and remained stable. The patient tolerated the procedure well and left the department in the same condition. Results: Spot radiograph of the chest demonstrates the new dialysis catheter to lie in the expected position with its tip overlying the superior right atrium. Impression: Successful, uncomplicated placement of a right internal jugular tunneled dialysis catheter using sonographic and fluoroscopic guidance and conscious sedation. Signed by: Dr. Ld Ruiz MD on 08/02/2019 1:09 PM Dictated By: LD RUIZ MD 130 Transcribed By: GERARD on 08/02/19 130 COPY TO: PRINCE HALE MD US GUIDANCE FOR VASCULAR ACCES 2019-08-02 13:06:00 [place] [address] Patient Name: GABRIELA MERCER MR #: [id number] : 1980 Age/Sex: 39/M Req #: [id number] [facility] Physician: PRINCE HALE MD Ordered by: NEHAL WADE MD Report #: [id number] Location: MED/SURG Room/Bed: [facility] Procedure: [id number] US/US GUIDANCE FOR VASCULAR ACCES Exam Date: 08/02/19 Exam Time: 1149 REPORT STATUS: Signed Tunneled dialysis catheter insertion. History: Renal failure. Modality: Sonography and fluoroscopy. Sedation: Versed 1.5 mg and fentanyl 75 mcg was given intravenously for conscious sedation. Vital signs were monitored throughout the procedure by a nurse, and remained stable. ysician intra-service time was 20. Flotation Tender Helper: Ld Ruiz MD Asphalt Coater: None. Approach: Right internal jugular vein Estimated blood loss: < 5 cc. Specimen: None. Fluoroscopy Time: 1.1 min. Dose (Ka,r): 12.3 mGy. Technique: Informed written con sent was obtained. Discussion of risks, benefits, and alternatives were made with the patient. The patient expressed understanding and agreed to proceed. All elements maximal sterile barrier technique was utilized for this procedure, including utilization of sterile scrub solution for skin prep, a large sterile sheet to cover the areas of the patient that were not prepped, and hand hygiene, mask, head covering, and sterile gown for performing radiologist and scrub technologist. The skin was anesthetized with 2% lidocaine.Ultrasound evaluation showed a patent and compressible right internal jugular vein, which was punctured under direct real-time ultrasound guidance with a micropuncture needle. An ultrasound image was saved to PACS. A 0.018 inch wire was placed through the needle into the right atrium. A 4 [place] Konger micropuncture sheath was placed and 0.035 wire advanced into the IVC. A subcutaneous tunnel was created in the right anterior chest wall by blunt dissection. A 19 cm tip to cuff 15.5 [place]er palindrome catheter was brought through the tunnel. The vessel tract was serially dilated over wire. A peel- away sheath was placed in the right IJ vein and the catheter was advanced through the sheath, with its distal tip terminating in the superior right atrium. The peel-away sheath was removed. The ports were flushed and aspirated easily following placement. The lumens were locked with heparin. The catheter was sutured to the skin to secure its placement. The small jugular incision site was closed using Dermabond. A resorbable percent suture is placed at the catheter exit site. Vital signs were monitored throughout the procedure by a nurse, and remained stable. The patient tolerated the procedure well and left the department in the same condition. Results: Spot radiograph of the chest demonstrates the new dialysis catheter to lie in the expected position with its tip overlying the superior right atrium. Impression: Successful, uncomplicated placement of a right internal jugular tunneled dialysis catheter using sonographic and fluoroscopic guidance and conscious sedation. Signed by: Dr. Ld Ruiz MD on 08/02/2019 1:09 PM Dictated By: LD RUIZ MD 08 Transcribed By: GERARD on 08/02/191308 COPY TO: NEHAL WADE MD TUNNELLED CVC INSERT W/O PORT 2019-08-02 13:06:00 [place] [address] Patient Name: GABRIELA MERCER MR #: [id number] : 1980 Age/Sex: 39/M Req #: [id number] Adm Physician: PRINCE HALE MD Ordered by: PRINCE HALE MD Report #: [id number] Location: MED/SURG Room/Bed: [facility] Procedure: [id number] IR/TUNNELLED CVC INSERT W/O PORT Exam Date: Exam Time: REPORT STATUS: Signed Tunneled dialysis catheter insertion. History: Renal failure. Modality: Sonography and fluoroscopy. Sedation: Versed 1.5 mg and fentanyl 75 mcg was given intravenously for conscious sedation. Vital signs were monitored throughout the procedure by a nurse, and remained stable. Physician intra-service time was 20. Flotation Tender Helper: Ld Ruiz MD Asphalt Coater: None. Approach: Right internal jugular vein Estimated blood loss: < 5 cc. Specimen: None. Fluoroscopy Time: 1.1 min. Dose (Ka,r): 12.3 mGy. Technique: Informed written consent was obtained. Discussion of risks, benefits, and alternatives were made with the patient. The patient expressed understanding and agreed to proceed. All elements maximal sterile barrier technique was utilized for this procedure, including utilization of sterile scrub solution for skin prep, a large sterile sheet to cover the areas of the patient that were not prepped, and hand hygiene, mask, head covering, and sterile gown for performing radiologist and scrub technologist. The skin was anesthetized with 2% lidocaine.Ultrasound evaluation showed a patent and compressible right internal jugular vein, which was punctured under direct real-time ultrasound guidance with a micropuncture needle. An ultrasound image was saved to PACS. A 0.018 inch wire was placed through the needle into the right atrium. A 4 Hong Konger micropuncture sheath was placed and 0.035 wire advanced into the IVC. A subcutaneous tunnel was created in the right anterior chest wall by blunt dissection. A 19 cm tip to cuff 15.5 [place] Konger palindrome catheter was brought through the tunnel. The vessel tract was serially dilated over wire. A peel-away sheath was placed in the right IJ vein and the catheter was advanced through the sheath, with its distal tip terminating in the superior right atrium. The peel-away sheath was removed. The ports were flushed and aspirated easily following placement. The lumens were locked with heparin. The catheter was sutured to the skin to secure its placement. The small jugular incision site was closed using Dermabond. A resorbable percent suture is placed at the catheter exit site. Vital signs were monitored throughout the procedure by a nurse, and remained stable. The patient tolerated the procedure well and left the department in the same condition. Results: Spot radiograph of the chest demonstrates the new dialysis catheter to lie in the expected position with its tip overlying the superior right atrium. Impression: Successful, uncomplicated placement of a right internal jugular tunneled dialysis catheter using sonographic and fluoroscopic guidance and conscious sedation. Signed by: Dr. Ld Ruiz MD on 08/02/2019 1:09 PM Dictated By: LD RUIZ MD 1301 Transcribed By: GERARD on 08/02/19 1304 COPY TO: PRINCE HALE MD CHEST 2 VIEWS 2019-08-01 21:09:00 [place] [address] Patient Name: GABRIELA MERCER MR #: [id number] : 1980 Age/Sex: 39/M Req #: [id number] Adm Physician: Ordered by: NEHAL WADE MD Report #: [id number] Location: ER Room/Bed: Procedure: [id number] DX/CHEST 2 VIEWS Exam Date: 08/01/19 Exam Time: 2019 REPORT STATUS: Signed EXAMINATION: CHEST 2 VIEWS INDICATION: SOB, CP [id number] COMPARISON: 08/18/2017 FINDINGS: PA and lateral views TUBES and LINES: None. LUNGS: Lungs are well inflated. Pulmonary vascular congestion and mild interstitial edema. PLEURA: No pleural effusion or pneumothorax. HEART AND MEDIASTINUM: The cardiomediastinal silhouette is enlarged. BONES AND SOFT TISSUES: No acute osseous lesion. Soft tissues are unremarkable. UPPER ABDOMEN: No free air under the diaphragm. IMPRESSION: Enlarged cardiomediastinal silhouette, pulmonary vascular congestion, and mild interstitial edema. Underlying pneumonia in the bilateral perihilar regions cannot be excluded in the appropriate clinical context. Signed by: Dr. Ceasar Akhtar MD on 08/01/2019 9:11 PM Dictated By: CEASAR AKHTAR MD 10 Transcribed By: GERARD on 08/01/192110 COPY TO: NEHAL WADE MD Creatine Kinase MB 2019-03-23 23:27:00 Test Item Creatine Kinase MB (test code = 39805-2) 2.10 0-5.0 [facility]AllenTroponin [id number] 23:27:00* Test Item Value Reference Range Interpretation Comments Troponin I (test code = LMK6397) 0.046 0-0.300 [facility]odium Ekezg0333-09-44 23:21:00* Test Item Value Reference Range Interpretation Comments Sodium Level (test code = 2951-2) 137 136-145 [facility]AllenPotassium Oonvf9795-88-55 23:21:00* Test Item Value Reference Range Interpretation Comments Potassium Level (test code = 2823-3) 4.0 3.5-5.1 [facility]AllenChloride Ujhyk9826-08-73 23:21:00* Test Item Value Reference Range Interpretation Comments Chloride Level (test code = 2075-0) 107 98-107 [facility] McAllenCarbon Dioxide Eewvc5910-21-68 23:21:00* Test Item Value Reference Range Interpretation Comments Carbon Dioxide Level (test code = 2028-9) 16 22-29 L [facility] McAllenAnion Ogu3884-66-06 23:21:00* Test Item Value Reference Range Interpretation Comments Anion Gap (test code = 38998-8) 18.0 8-16 H [facility] McAllenBlood Urea Xgrxwudb3759-74-13 23:21:00* Test Item Value Reference Range Interpretation Comments Blood Urea Nitrogen (test code = 3094-0) 51 7-26 H [facility] McAllenCreatinine2020-02-04 23:21:00* Test Item Value Reference Range Interpretation Comments Creatinine (test code = 2160-0) 6.27 0.72-1.25 H [facility] McAllenBUN/Creatinine Wtfvo9723-38-76 23:21:00* Test Item Value Reference Range Interpretation Comments BUN/Creatinine Ratio (test code = 3097-3) 8 6-25 [facility] McAllenEstimat Glomerular Filtration Rate 2019-03-23 23:21:00* Test Item Value Reference Range Interpretation Comments Estimat Glomerular Filtration Rate (test code = 233000276) 10 >60 L Ranges were taken from the National Kidney Disease Education Program and the [facility] literature.Reference ranges:60 or greater: Sbeuod97-81 ( for 3 consecutive months): Chronic kidney disease 15 or less: Kidney failureSouth Texas Health System McAllenGlucose Deden2076-68-41 23:21:00* Test Item Value Reference Range Interpretation Comments Glucose Level (test code = EJB5149) 222 74-118 H [facility] McAllenCalcium Decem3677-67-55 23:21:00* Test Item Value Reference Range Interpretation Comments Calcium Level (test code = 77896-6) 8.6 8.4-10.2 [facility] McAllenTotal Bzrmgyhpp8952-03-43 23:21:00* Test Item Value Reference Range Interpretation Comments Total Bilirubin (test code = 1975-2) 0.3 0.2-1.2 [facility] McAllenAspartate Amino Transf (AST/SGOT) 2019-03-23 23:21:00* Test Item Value Reference Range Interpretation Comments Aspartate Amino Transf (AST/SGOT) (test code = Aspartate Amino Transf (AST/SGOT)) 16 5-34 [facility] McAllenAlanine Aminotransferase (ALT/SGPT) 2019-03-23 23:21:00* Test Item Value Reference Range Interpretation Comments Alanine Aminotransferase (ALT/SGPT) (test code = 1742-6) 23 0-55 [facility] McAllenTotal Tbrylhb7984-06-49 23:21:00* Test Item Value Reference Range Interpretation Comments Total Protein (test code = 2885-2) 6.4 6.5-8.1 L [facility] McAllenAlbumin2020-02-04 23:21:00* Test Item Value Reference Range Interpretation Comments Albumin (test code = 1751-7) 2.8 3.5-5.0 L [facility] McAllenGlobulin2020-02-04 23:21:00* Test Item Value Reference Range Interpretation Comments Globulin (test code = 40078-4) 3.6 2.3-3.5 H [facility] McAllenAlbumin/Globulin Detph5285-77-41 23:21:00 * Test Item Value Reference Range Interpretation Comments Albumin/Globulin Ratio (test code = 1759-0) 0.8 0.8-2.0 [facility] McAllenAlkaline Auarjfvwyhv2027-63-46 23:21:00* Test Item Value Reference Range Interpretation Comments Alkaline Phosphatase (test code = 6768-6) 93 40-150 [facility] McAllenCreatine Aupwsa0253-78-36 23:21:00* Test Item Value Reference Range Interpretation Comments Creatine Kinase (test code = 2157-6) 100 30-200 [facility] McAllenWhite Blood Znzjt9145-69-52 22:26:00* Test Item Value Reference Range Interpretation Comments White Blood Count (test code = 6690-2) 9.88 4.8-10.8 [facility] McAllenRed Blood Iiouc0956-24-92 22:26:00* Test Item Value Reference Range Interpretation Comments Red Blood Count (test code = 789-8) 3.34 4.3-5.7 L [facility] McAllenHemoglobin2020-02-04 22:26:00* Test Item Value Reference Range Interpretation Comments Hemoglobin (test code = 32206-6) 10.0 14.0-18.0 L [facility] McAllenHematocrit2020-02-04 22:26:00* Test Item Value Reference Range Interpretation Comments Hematocrit (test code = 4544-3) 29.4 38.2-49.6 L [facility] McAllenMean Corpuscular Tobeqs3366-55-42 22:26:00* Test Item Value Reference Range Interpretation Comments Mean Corpuscular Volume (test code = 787-2) 88.0 81-99 [facility] McAllenMean Corpuscular Jjohflerpy4265-08-67 22:26:00* Test Item Value Reference Range Interpretation Comments Mean Corpuscular Hemoglobin (test code = 785-6) 29.9 28-32 [facility] McAllenMean Corpuscular Hemoglobin Concent 2019-03-23 22:26:00* Test Item Value Reference Range Interpretation Comments Mean Corpuscular Hemoglobin Concent (test code = 786-4) 34.0 31-35 [facility] McAllenRed Cell Distribution Hddek6736-76-56 22:26:00* Test Item Value Reference Range Interpretation Comments Red Cell Distribution Width (test code = 41963-7) 14.0 11.7 -14.4 [facility] McAllenPlatelet Ekldm9574-65-66 22:26:00* Test Item Value Reference Range Interpretation Comments Platelet Count (test code = 777-3) 173 140-360 [facility] McAllenNeutrophils (%) (Auto)2019-03-23 22:26:00 * Test Item Value Reference Range Interpretation Comments Neutrophils (%) (Auto) (test code = 59941-1) 81.0 38.7-80.0 H [facility] McAllenLymphocytes (%) (Auto)2019-03-23 22:26:00 * Test Item Value Reference Range Interpretation Comments Lymphocytes (%) (Auto) (test code = 736-9) 10.8 18.0-39.1 L [facility] McAllenMonocytes (%) (Auto)2019-03-23 22:26:00* Test Item Value Reference Range Interpretation Comments Monocytes (%) (Auto) (test code = 5905-5) 5.0 4.4-11.3 [facility]AllenEosinophils (%) (Auto)2019-03-23 22:26:00 * Test Item Value Reference Range Interpretation Comments Eosinophils (%) (Auto) (test code = 713-8) 2.2 0.0-6.0 [facility] McAllenBasophils (%) (Auto)2019-03-23 22:26:00* Test Item Value Reference Range Interpretation Comments Basophils (%) (Auto) (test code = 706-2) 0.7 0.0-1.0 [facility] McAllenIM GRANULOCYTES %2019-03-23 22:26:00* Test Item Value Reference Range Interpretation Comments IM GRANULOCYTES % (test code = IM GRANULOCYTES %) 0.3 0.0- 1.0 [facility] McAllenNeutrophils # (Auto)2019-03-23 22:26:00* Test Item Value Reference Range Interpretation Comments Neutrophils # (Auto) (test code = 751-8) 8.0 2.1-6.9 H [facility] McAllenLymphocytes # (Auto)2019-03-23 22:26:00* Test Item Value Reference Range Interpretation Comments Lymphocytes # (Auto) (test code = 07286-8) 1.1 1.0-3.2 [facility] McAllenMonocytes # (Auto)2019-03-23 22:26:00* Test Item Value Reference Range Interpretation Comments Monocytes # (Auto) (test code = 742-7) 0.5 0.2-0.8 [facility] McAllenEosinophils # (Auto)2019-03-23 22:26:00* Test Item Value Reference Range Interpretation Comments Eosinophils # (Auto) (test code = 711-2) 0.2 0.0-0.4 [facility] McAllenBasophils # (Auto)2019-03-23 22:26:00* Test Item Value Reference Range Interpretation Comments Basophils # (Auto) (test code = 704-7) 0.1 0.0-0.1 [facility] McAllenAbsolute Immature Granulocyte (auto 2019-03-23 22:26:00* Test Item Value Reference Range Interpretation Comments Absolute Immature Granulocyte (auto (andi t code = Absolute Immature Granulocyte (auto) 0.03 0-0.1 [facility] McAllenCT BRAIN XY7944-92-24 21:05:00 [facility] [address] [place] [address] Patient Name: GABRIELA MERCER MR #: [id number] : 1980 Age/Sex: 38/M Req #: [id number] Adm Physician: Ordered by: NEHAL WADE MD Report #: [id number] Location: ER Room/Bed: Procedure: [id number]/CT BRAIN WO Exam Date: 03/23/19 Exam Time: 204 6 REPORT STATUS: Signed History: High blood pressure, headaches Comparison studies:CT head 01/20/2017 Techn ique: Axial images were obtained from the skull base to the vertex. Coronal and sagittal images reconstructed from the axial data. Intravenous contrast: N one Dose modulation, iterative reconstruction, and/or weight based adjustment of the mA/kV was utilized to reduce the radiation dose to as low as reasonably achievable. Findings: Scalp/skull: No abnormalities. Extra- axial spaces: No masses. No fluid collections. Brain sulci: Mildly prom inent. Ventricles: Mild compensatory dilatation. No hydrocephalus. Parenc hyma: No abnormal densities. No masses, hemorrhage, acute or chronic cortical vascular insults. Sellar/suprasellar region: No abnormalities. Cranioc ervical junction: Patent foramen magnum. No Chiari one malformation. Incid ental findings: None. Impression: No acute abnormalities. Mild gen eralized volume loss , more than expected for patient's age. Signed by: DR Ab Key M.D. on 03/23/2019 9:31 PM Dictated By: AB KEY MD 30 Tra nscribed By: GERARD on 03/23/192130 COPY TO: NEHAL WADE MD p-ANCA Fhgsb1960-55-69 23:52:00* Test Item Value Reference Range Interpretation Comments p-ANCA Titer (test code = 70263-2) <1:20 Neg:<1:20 The presence of positive fluorescence exhibiting P-ANCA orC-ANCA patterns alone is not specific for the diagnosis ofWegener's Granulomatosis (WG) or microscopic polyangiitis.Decisions about treatment should not be based solely onMAUROA JOEY zeng. The International ANCA Group Consensusrecommends follow up testing of po sitive sera with both MO-3 and MPO-ANCA enzyme immunoassays. As many as 5% serum samples are positive only by EIA. Ref. AM J Clin Ihazgs2028;111:507-513.[facility] McAllenc-ANCA Yokpu0158-08-43 23:52:00* Test Item Value Reference Range Interpretation Comments c-ANCA Titer (test code = 32780-3) <1:20 Neg:<1:20 [facility] McAllenAtypical s-GIUW8081-44MXOC3650-58-35 23:52:00* Test Item Value Reference Range Interpretation Comments Atypical p-ANCA (test code = 67231-5) <1:20 Neg:<1:20 The atypical pANCA pattern has been observed in asignificant percentage of patie nts with ulcerative colitis,primary sclerosing cholangitis and autoimmune hepati tis.Performed at: - [place] [address]Lab Director: Frederick Gómez MD, Phone: [phone] Texas Health System McAllenAlbumin (PEP)2019-02-18 23:50:00* Test Item Value Reference Range Interpretation Comments Albumin (PEP) (test code = Albumin (PEP)) 2.4 2.9-4.4 L [facility] McAllenAlpha-1-Abeprzzsb9472-92-96 23:50:00* Test Item Value Reference Range Interpretation Comments Scxhu-0-Jjcpimevg (test code = 2865-4) 0.3 0.0-0.4 [facility] McAllenAlpha-2-Iazurigty5332-94-23 23:50:00* Test Item Value Reference Range Interpretation Comments Mvzgb-8-Cllqkuxih (test code = 2868-8) 1.2 0.4-1.0 H [facility] McAllenBeta Gamma Qtkrelns1423-92-78 23:50:00* Test Item Value Reference Range Interpretation Comments Beta Gamma Globulin (test code = 2871-2) 1.0 0.7-1.3 [facility] McAllenGamma Fuogbxyrt8167-01-62 23:50:00* Test Item Value Reference Range Interpretation Comments Gamma Globulins (test code = 2874-6) 0.6 0.4-1.8 [facility] McAllenTotal Protein (PEP)2019-02-18 23:50:00* Test Item Value Reference Range Interpretation Comments Total Protein (PEP) (test code = 2885-2) 5.5 6.0-8.5 L [facility] McAllenGlobulin2020-01-02 23:50:00* Test Item Value Reference Range Interpretation Comments Globulin (test code = 62187-4) 3.1 2.2-3.9 [facility] McAllenKappa Light Chain Cfwojukn8312-59-49 23:50:00* Test Item Value Reference Range Interpretation Comments [place] Light Chain Analysis (test code = 84724-8) 91.4 3.3-1 9.4 H [facility] McAllenLambda Light Chain Msnjndty9784-94-70 23:50:00* Test Item Value Reference Range Interpretation Comments Lambda Light Chain Analysis (test code = 33581-4) 51.3 5.7- 26.3 H [facility] McAllenTotl [place]/Lambda Light Chain Ratio 2019-02-18 23:50:00* Test Item Value Reference Range Interpretation Comments Totl [place]/Lambda Light Chain Ratio (test code = 66327-5) 1.78 0.26-1.65 H [facility] McAllenProtein Electrophoresis B-Ueqpw0937-26Lcqyq9682-03-24 23:50:00* Test Item Value Reference Range Interpretation Comments Protein Electrophoresis M-Ramiro (test code = 20600-1) Not Observ ed Not Observed [facility] McAllenAlbumin/Globulin Cpknp7242-02-10 23:50:00 * Test Item Value Reference Range Interpretation Comments Albumin/Globulin Ratio (test code = 1759-0) 0.8 0.7-1.7 [facility] McAllenProtein Electrophoresis Kbaf2744-15-62 23:50:00* Test Item Value Reference Range Interpretation Comments Protein Electrophoresis Note (test code = Protein Electropho resis Note) Comment . Protein electrophoresis scan will follow via computer,mail, or sidewalk repairer delivery. [facility] McAllenAnti-Proteinase 3 (c-ANCA)2019-02-18 23:50:00* Test Item Value Reference Range Interpretation Comments Anti-Proteinase 3 (c-ANCA) (test code = 20305-1) <3.5 0.0-3 .5 Performed at: - [facility] [id number] Director: Evaristo Carvajal MD, Phone: [phone] at: DA - [facility] [address], [place], [place] [id number] Director: FARRUKH Hernandez MD, Phone: [phone] at: [facility] [place], [place] [id number] Director: Frederick Gómez MD, Phone: [phone] Texas Health System McAllenMyeloperoxidase Umjcmsta3239-53-76 23:50:00* Test Item Value Reference Range Interpretation Comments Myeloperoxidase Antibody (test code = 61683-8) <9.0 0.0-9.0 [facility] McAllenAnti-Nuclear Antibody Vkgpwc2472-46-74 01:11:00* Test Item Value Reference Range Interpretation Comments Anti-Nuclear Antibody Screen (test code = 5048-4) Negative . Negative <1:80 Borderline 1:80 Positive > 1:80Performed at: [facility] [id number] 3Lab Director: Evaristo Carvajal MD, Phone: [phone] Community Hospital Hzfkjjg8961-51-68 19:06:00* Test Item Value Reference Range Interpretation Comments Bedside Glucose (test code = 43185-1) 152 70-120 H Meter ID: [id number] Community Hospital Glucose 2019-02-16 11:20:00* Test Item Value Reference Range Interpretation Comments Bedside Glucose (test code = 03584-6) 165 70-120 H Meter ID: [id number] St[facility] Hospitaleumaid Factor 2019-02-16 08:42:00* Test Item Value Reference Range Interpretation Comments Rheumatoid Factor (test code = 21858-8) 11.5 0.0-13.9 Performed at: [facility] LabCo[address] [id number] Director: Evaristo Carvajal MD, Phone: [phone] Texas Health System McAllenComplement [id number] 08:42:00* Test Item Value Reference Range Interpretation Comments Complement C3 (test code = 4485-9) 176 82-167 H [facility] McAllenComplement [id number] 08:42:00* Test Item Value Reference Range Interpretation Comments Complement C4 (test code = 4498-2) 43 14-44 [facility] McAllenRheumatoid Wfvsrt0343-39-25 08:42:00* Test Item Value Reference Range Interpretation Comments Rheumatoid Factor (test code = 78512-8) 11.5 0.0-13.9 Performed at: [facility] [address] [id number] Director: Evaristo Carvajal MD, Phone: [phone] Texas Health System McAllenComplement [id number] 08:42:00* Test Item Value Reference Range Interpretation Comments Complement C3 (test code = 4485-9) 176 82-167 H [facility] McAllenComplement [id number] 08:42:00* Test Item Value Reference Range Interpretation Comments Complement C4 (test code = 4498-2) 43 14-44 [facility]landodium Gppwj7715-67-53 06:08:00* Test Item Value Reference Range Interpretation Comments Sodium Level (test code = 2951-2) 137 136-145 [facility] McAllenPotassium Usxtx4542-51-37 06:08:00* Test Item Value Reference Range Interpretation Comments Potassium Level (test code = 2823-3) 3.9 3.5-5.1 [facility] McAllenChloride Ewuaf9133-51-19 06:08:00* Test Item Value Reference Range Interpretation Comments Chloride Level (test code = 2075-0) 105 98-107 [facility] McAllenCarbon Dioxide Fvwzn6044-45-44 06:08:00* Test Item Value Reference Range Interpretation Comments Carbon Dioxide Level (test code = 2028-9) 18 22-29 L [facility] McAllenAnion Ttc0090-38-37 06:08:00* Test Item Value Reference Range Interpretation Comments Anion Gap (test code = 44481-3) 17.9 8-16 H [facility] McAllenBlood Urea Vcuxbuzd7105-23-13 06:08:00* Test Item Value Reference Range Interpretation Comments Blood Urea Nitrogen (test code = 3094-0) 49 7-26 H [facility] McAllenCreatinine2019-12-31 06:08:00* Test Item Value Reference Range Interpretation Comments Creatinine (test code = 2160-0) 6.25 0.72-1.25 H [facility] McAllenBUN/Creatinine Ypsxm8740-02-31 06:08:00* Test Item Value Reference Range Interpretation Comments BUN/Creatinine Ratio (test code = 3097-3) 8 6-25 [facility] McAllenEstimat Glomerular Filtration Rate 2019-02-16 06:08:00* Test Item Value Reference Range Interpretation Comments Estimat Glomerular Filtration Rate (test code = 118127439) 10 >60 L Ranges were taken from the National Kidney Disease Education Program and the [facility] Kidney Foundation literature.Reference ranges:60 or greater: Qlozpo38-39 ( for 3 consecutive months): Chronic kidney disease 15 or less: Kidney failureSouth Texas Health System McAllenGlucose Pfccm4227-99-26 06:08:00* Test Item Value Reference Range Interpretation Comments Glucose Level (test code = KKE5389) 122 74-118 H [facility] McAllenCalcium Ideke5457-99-55 06:08:00* Test Item Value Reference Range Interpretation Comments Calcium Level (test code = 29728-3) 8.9 8.4-10.2 [facility] McAllenWhite Blood Dzrsr4490-27-35 05:55:00* Test Item Value Reference Range Interpretation Comments White Blood Count (test code = 6690-2) 11.00 4.8-10.8 H [facility] McAllenRed Blood Pnjsf3699-90-67 05:55:00* Test Item Value Reference Range Interpretation Comments Red Blood Count (test code = 789-8) 3.59 4.3-5.7 L [facility] McAllenHemoglobin2019-12-31 05:55:00* Test Item Value Reference Range Interpretation Comments Hemoglobin (test code = 50664-9) 10.5 14.0-18.0 L [facility] McAllenHematocrit2019-12-31 05:55:00* Test Item Value Reference Range Interpretation Comments Hematocrit (test code = 4544-3) 32.5 38.2-49.6 L [facility] McAllenMean Corpuscular Rsllba7436-30-81 05:55:00* Test Item Value Reference Range Interpretation Comments Mean Corpuscular Volume (test code = 787-2) 90.5 81-99 [facility] McAllenMean Corpuscular Pmwinqrgug7579-96-28 05:55:00* Test Item Value Reference Range Interpretation Comments Mean Corpuscular Hemoglobin (test code = 785-6) 29.2 28-32 [facility] McAllenMean Corpuscular Hemoglobin Concent 2019-02-16 05:55:00* Test Item Value Reference Range Interpretation Comments Mean Corpuscular Hemoglobin Concent (test code = 786-4) 32.3 31-35 [facility] McAllenRed Cell Distribution Tufyk0594-27-27 05:55:00* Test Item Value Reference Range Interpretation Comments Red Cell Distribution Width (test code = 79674-9) 13.1 11.7 -14.4 [facility] McAllenPlatelet Xxpgq1548-09-69 05:55:00* Test Item Value Reference Range Interpretation Comments Platelet Count (test code = 777-3) 215 140-360 [facility] McAllenNeutrophils (%) (Auto)2019-02-16 05:55:00 * Test Item Value Reference Range Interpretation Comments Neutrophils (%) (Auto) (test code = 94056-3) 76.9 38.7-80.0 [facility] McAllenLymphocytes (%) (Auto)2019-02-16 05:55:00 * Test Item Value Reference Range Interpretation Comments Lymphocytes (%) (Auto) (test code = 736-9) 13.6 18.0-39.1 L [facility] McAllenMonocytes (%) (Auto)2019-02-16 05:55:00* Test Item Value Reference Range Interpretation Comments Monocytes (%) (Auto) (test code = 5905-5) 5.1 4.4-11.3 [facility] McAllenEosinophils (%) (Auto)2019-02-16 05:55:00 * Test Item Value Reference Range Interpretation Comments Eosinophils (%) (Auto) (test code = 713-8) 3.5 0.0-6.0 [facility] McAllenBasophils (%) (Auto)2019-02-16 05:55:00* Test Item Value Reference Range Interpretation Comments Basophils (%) (Auto) (test code = 706-2) 0.4 0.0-1.0 [facility] McAllenIM GRANULOCYTES %2019-02-16 05:55:00* Test Item Value Reference Range Interpretation Comments IM GRANULOCYTES % (test code = IM GRANULOCYTES %) 0.5 0.0- 1.0 [facility] McAllenNeutrophils # (Auto)2019-02-16 05:55:00* Test Item Value Reference Range Interpretation Comments Neutrophils # (Auto) (test code = 751-8) 8.5 2.1-6.9 H [facility] McAllenLymphocytes # (Auto)2019-02-16 05:55:00* Test Item Value Reference Range Interpretation Comments Lymphocytes # (Auto) (test code = 72239-3) 1.5 1.0-3.2 [facility] McAllenMonocytes # (Auto)2019-02-16 05:55:00* Test Item Value Reference Range Interpretation Comments Monocytes # (Auto) (test code = 742-7) 0.6 0.2-0.8 [facility] McAllenEosinophils # (Auto)2019-02-16 05:55:00* Test Item Value Reference Range Interpretation Comments Eosinophils # (Auto) (test code = 711-2) 0.4 0.0-0.4 [facility] McAllenBasophils # (Auto)2019-02-16 05:55:00* Test Item Value Reference Range Interpretation Comments Basophils # (Auto) (test code = 704-7) 0.0 0.0-0.1 [facility] McAllenAbsolute Immature Granulocyte (auto 2019-02-16 05:55:00* Test Item Value Reference Range Interpretation Comments Absolute Immature Granulocyte (auto (andi t code = Absolute Immature Granulocyte (auto) 0.06 0-0.1 [facility] McAllenHIP LEFT 2-3 VW (+/- PELVIS)2019-02-16 05:22:00 [facility] [address] [address] Patient Name: GABRIELA MERCER MR #: [id number] : 1980 Age/Sex: 38/M Req #: [id number] Adm Physician: PRINCE HALE MD Ordered by: PRINCE HALE MD Report #: [id number] Location: MED/SURG2 Room/Bed: [facility] Procedure: [id number] D X/HIP LEFT 2-3 VW (+/- PELVIS) Exam Date: Exam Time : REPORT STATUS: Signed X-ray p rachael 1 view and left hip 2 views HISTORY: Pain. COMPARISON: None a vailable. FINDINGS: Some of the osseous structures are partially obscured by bowel contents. Bones: No acute displaced fracture. Erin us alignment is within normal limits. Joints: The joint spaces are well-m aintained. Soft tissues: The soft tissues appear unremarkable. IMPRE SSION: No acute radiographic osseous abnormality. Signed by: Jose tran DO on 02/16/2019 5:24 AM Dictated By: JOSE UMANA DO Electr onically Signed By: JOSE UMANA DO on 02/16/19523 Transcribed By: SEAN Apple on 02/16/19523 COPY TO: PRINCE HALE MD MOD SEDATE ADD 15 MIN >6WTH0629-05-60 17:27:00 [place] [address] Patient Name: GABRIELA MERCER MR #: [id number] : 1980 Age/Sex: 38/M Req #: [id number] [facility] Physician: PRINCE HALE MD Ordered by: ARIAN GIL MD Report #: [id number] Location: [facility] Room/Bed: [facility] Procedure: [id number] US/MO D SEDATE ADD 15 MIN >5YRS Exam Date: 02/15/19 Exam Time: 1556 REPORT STATUS: Signed PROCEDURE: Ultrasound-guided nonfocal renal biopsy Procedural Personnel Attending physician(s): Arian Gil MD Fellow physician(s): None Resident physician(s): None Advanced practice provider(s): None Pre-procedure diagnosis: Severe sepsis Post-procedure diagnosis: Same Indication: Organ dysfunction Previous biopsy of same target (QCDR): No Additional clinical history: None Complications: No immediate complications. IMPRESSION: Ultrasound-guided nonfocal left renal biopsy. Plan: Specimen(s) sent for evaluation. PROCEDURE SUMMARY: - Percutaneous US-guided coaxial core needle biopsy - Additional procedure(s): None PROCEDURE DETAILS: Pre-procedure Reference imaging for biopsy target: Renal ultrasound 02/11/2019 Consent: Informed consent for the procedur e including risks, benefits and alternatives was obtained and time-out was per formed prior to the procedure. Preparation: The site was prepared and draped u sing maximal sterile barrier technique including cutaneous antisepsis. An esthesia/sedation Level of anesthesia/sedation: Moderate sedation (conscious s edation) 1mg Versed, 50mcg Fentanyl Anesthesia/sedation administered by: Ind ependent trained observer under attending supervision with continuous monitori ng of the patient?s level of consciousness and physiologic status Total intr a-service sedation time (minutes): 30 Imaging prior to biopsy The patient was positioned prone. Initial ultrasound was performed. Biopsy target: - Ma ximal diameter (cm): N/A - Location: Left renal cortex Other findings: None Biopsy Local anesthesia was administered. Under US guidance, the biopsy needle was advanced to the target and biopsy was performed. Coaxial needle: 17 gauge Core needle biopsy device: [employer] Core needle size: 18 gauge Number of core specimens: 4 On-site biopsy touch preparation: Yes Additional sampling recommendations: None Preliminary assessment of sample adequacy: Adequate Needle removal The biopsy needle was removed and a aníbal rile dressing was applied. Tract embolization: Gelfoam slurry Imaging fol lowing biopsy Immediate post-biopsy ultrasound was performed. Post-biopsy im aging findings: No hematoma Additional Details Additional description of procedure: None Equipment details: None Specimens removed: Biopsy samples as detailed above Estimated blood loss (mL): Less than 10 Standardized report: SIR_BiopsyUS_v3 Attestation Signer name: Arain Gil MD I attest that I was present for the entire procedure. I reviewed the stored images and agree with the report as written. Signed by: Arian Gil MD on 02/15/2019 5:29 PM Dictated By: ARIAN GIL MD 1420 Transcribed By: GERARD on 03/03/19 1420 COPY TO: VICKIE GIL MD MOD SEDATE INITIAL >5 [id number] 17:27:00 [place] [address] Patient Name: GABRIELA MERCER MR #: [id number] : 1980 Age/Sex: 38/M Req #: [id number] Adm Physician: PRINCE HALE MD Ordered by: ARIAN GIL MD Report #: [id number] Location: MED/SURG2 Room/Bed: [facility] Procedure: [id number] US/MO D SEDATE INITIAL >5 YRS Exam Date: 02/15/19 Exam Time: 1540 REPORT STATUS: Signed PROCEDURE: Ultrasound-guided nonfocal renal biopsy Procedural Personnel Attending physician(s): Arian Gil MD Fellow physician(s): None Resident physician(s): None Advanced practice provider(s): None Pre-procedure diagnosis: Severe sepsis Post-procedure diagnosis: Same Indication: Organ dysfunction Previous biopsy of same target (QCDR): No Additional clinical history: None Complications: No immediate complications. IMPRESSION: Ultrasound-guided nonfocal left renal biopsy. Plan: Specimen(s) sent for evaluation. PROCEDURE SUMMARY: - Percutaneous US-guided coaxial core needle biopsy - Additional procedure(s): None PROCEDURE DETAILS: Pre-procedure Reference imaging for biopsy target: Renal ultrasound 02/11/2019 Consent: Informed consent for the procedu re including risks, benefits and alternatives was obtained and time-out was pe rformed prior to the procedure. Preparation: The site was prepared and draped using maximal sterile barrier technique including cutaneous antisepsis. A nesthesia/sedation Level of anesthesia/sedation: Moderate sedation (conscious sedation) 1mg Versed, 50mcg Fentanyl Anesthesia/sedation administered by: In dependent trained observer under attending supervision with continuous monitor ing of the patient?s level of consciousness and physiologic status Total int ra-service sedation time (minutes): 30 Imaging prior to biopsy The patien t was positioned prone. Initial ultrasound was performed. Biopsy target: - M aximal diameter (cm): N/A - Location: Left renal cortex Other findings: None Biopsy Local anesthesia was administered. Under US guidance, the biopsy needle was advanced to the target and biopsy was performed. Coaxial needle: 17 gauge Core needle biopsy device: [employer] Core needle size: 18 gauge Number of core specimens: 4 On-site biopsy touch preparation: Yes Additional sampling recommendations: None Preliminary assessment of sample adequacy: Adequate Needle removal The biopsy needle was removed and a st erile dressing was applied. Tract embolization: Gelfoam slurry Imaging fo llowing biopsy Immediate post-biopsy ultrasound was performed. Post-biopsy i maging findings: No hematoma Additional Details Additional description of procedure: None Equipment details: None Specimens removed: Biopsy samples as detailed above Estimated blood loss (mL): Less than 10 Standardized report: SIR_BiopsyUS_v3 Attestation Signer name: Arian Gil MD I attest that I was present for the entire procedure. I reviewed the stored images and agree with the report as written. Signed by: Arian Gil MD on 02/15/2019 5:29 PM Dictated By: ARIAN GIL MD 19 Transcribed By: GERARD on 03/03/191419 COPY TO: JENNIFER GIL MD US GUIDANCE FOR [id number] 17:27:00 [place] [address] Patient Name: GABRIELA MERCER MR #: [id number] : 1980 Age/Sex: 38/M Req #: [id number] [facility] Physician: PRINCE HALE MD Ordered by: ETHAN DANIELS MD Report #: [id number] Location: [facility] Room/Bed: [facility] Procedure: [id number] U S/US GUIDANCE FOR PROCEDURE Exam Date: 02/15/19 Exam Time: 1536 REPORT STATUS: Signed PROCEDURE: Ultrasound-guided nonfocal renal biopsy Procedural Personnel Attending physician(s): Arian Gil MD Fellow physician(s): None Resident p viktoriyacian(s): None Advanced practice provider(s): None Pre-procedure diagn osis: Severe sepsis Post-procedure diagnosis: Same Indication: Organ dysfunc tion Previous biopsy of same target (QCDR): No Additional clinical history: None Complications: No immediate complications. IMPRESSION: Ultra sound-guided nonfocal left renal biopsy. Plan: Specimen(s) sent for e valuation. PROCEDURE SUMMARY: - Percutaneous US-guided coaxial core needle biopsy - A dditional procedure(s): None PROCEDURE DETAILS: Pre-procedure Refere nce imaging for biopsy target: Renal ultrasound 02/11/2019 Consent: Informed c onsent for the procedure including risks, benefits and alternatives was obtain ed and time-out was performed prior to the procedure. Preparation: The site wa s prepared and draped using maximal sterile barrier technique including cutane ous antisepsis. Anesthesia/sedation Level of anesthesia/sedation: Moderat e sedation (conscious sedation) 1mg Versed, 50mcg Fentanyl Anesthesia/sedati on administered by: Independent trained observer under attending supervision w ith continuous monitoring of the patient?s level of consciousness and physiolo gic status Total intra-service sedation time (minutes): 30 Imaging prior to biopsy The patient was positioned prone. Initial ultrasound was performed. Biopsy target: - Maximal diameter (cm): N/A - Location: Left renal cortex Other findings: None Biopsy Local anesthesia was administered. Under US guidance, the biopsy needle was advanced to the target and biopsy was perfor med. Coaxial needle: 17 gauge Core needle biopsy device: [employer] Core needle size: 18 gauge Number of core specimens: 4 On-site biopsy t ouch preparation: Yes Additional sampling recommendations: None Preliminar y assessment of sample adequacy: Adequate Needle removal The biopsy needl e was removed and a sterile dressing was applied. Tract embolization: Gelfoam slurry Imaging following biopsy Immediate post-biopsy ultrasound was perf ormed. Post-biopsy imaging findings: No hematoma Additional Details Add itional description of procedure: None Equipment details: None Specimens rem jeny: Biopsy samples as detailed above Estimated blood loss (mL): Less than 10 Standardized report: SIR_BiopsyUS_v3 Attestation Signer name: Arian Gil MD I attest that I was present for the entire procedure. [facility] and agree with the report as written. Signed by: Arian Gil MD on 02/15/2019 5:29 PM Dictated By: ARIAN GIL MD Electronically Allie d By: ARIAN GIL MD on 03/03/191419 Transcribed By: GERARD on 03/03/191419 COPY TO: ETHAN DANIELS MD IR [id number] 17:27:00 [place] [address] Patient Name: GABRIELA MERCER MR #: [id number] : 1980 Age/Sex: 38/M Req #: [id number] Adm Physician: PRINCE HALE MD Ordered by: ETHAN DANIELS MD Report #: [id number] Location: MED/SURG2 Room/Bed: [facility] Procedure: [id number] D X/IR CONSULT Exam Date: Exam Time: REPORT STATUS: Signed PROCEDURE: Ultrasound-alejandra ded nonfocal renal biopsy Procedural Personnel Attending physician(s): Cassidy Gil MD Fellow physician(s): None Resident physician(s): None Advance d practice provider(s): None Pre-procedure diagnosis: Severe sepsis Post- procedure diagnosis: Same Indication: Organ dysfunction Previous biopsy of s nina target (QCDR): No Additional clinical history: None Complications: No immediate complications. IMPRESSION: Ultrasound-guided nonfocal left renal biopsy. Plan: Specimen(s) sent for evaluation. PROCEDURE SUMMARY: - Pe rcutaneous US-guided coaxial core needle biopsy - Additional procedure(s): Non e PROCEDURE DETAILS: Pre-procedure Reference imaging for biopsy targ et: Renal ultrasound 02/11/2019 Consent: Informed consent for the procedure in cluding risks, benefits and alternatives was obtained and time-out was perform ed prior to the procedure. Preparation: The site was prepared and draped using maximal sterile barrier technique including cutaneous antisepsis. Anesth esia/sedation Level of anesthesia/sedation: Moderate sedation (conscious sedat ion) 1mg Versed, 50mcg Fentanyl Anesthesia/sedation administered by: Klever melgoza trained observer under attending supervision with continuous monitoring o f the patient?s level of consciousness and physiologic status Total intra-se rvice sedation time (minutes): 30 Imaging prior to biopsy The patient was positioned prone. Initial ultrasound was performed. Biopsy target: - Maximal diameter (cm): N/A - Location: Left renal cortex Other findings: None Biopsy Local anesthesia was administered. Under US guidance, the biopsy need le was advanced to the target and biopsy was performed. Coaxial needle: 17 g auge Core needle biopsy device: [employer] Core needle size: 18 gaug e Number of core specimens: 4 On-site biopsy touch preparation: Yes A dditional sampling recommendations: None Preliminary assessment of sample adeq uacy: Adequate Needle removal The biopsy needle was removed and a sterile dressing was applied. Tract embolization: Gelfoam slurry Imaging followi ng biopsy Immediate post-biopsy ultrasound was performed. Post-biopsy imagin g findings: No hematoma Additional Details Additional description of proc edure: None Equipment details: None Specimens removed: Biopsy samples as det augustus above Estimated blood loss (mL): Less than 10 Standardized report: SIR _BiopsyUS_v3 Attestation Signer name: Arian Gil MD I attest that I wa s present for the entire procedure. I reviewed the stored images and agree wit h the report as written. Signed by: Arian Gil MD on 02/15/2019 5:29 PM Dictated By: ARIAN GIL MD 142 COPY TO: BASHIR DANIELS MD BIOPSY [id number] 17:27:00 [place] [address] Patient Name: GABRIELA MERCER MR #: [id number] : 1980 Age/Sex: 38/M Req #: [id number] Adm Physician: PRINCE HALE MD Ordered by: ETHAN DANIELS MD Report #: [id number] Location: [place] [address] Room/Bed: [facility] Procedure: [id number] I R/BIOPSY RENAL Exam Date: 02/15/19 Exam Time: 1536 REPORT STATUS: Signed PROCEDURE: Ultrasound-guided nonfocal renal biopsy Procedural Personnel Attending ph ysician(s): Arian Gil MD Fellow physician(s): None Resident physician(s): None Advanced practice provider(s): None Pre-procedure diagnosis: Severe sepsis Post-procedure diagnosis: Same Indication: Organ dysfunction Previo us biopsy of same target (QCDR): No Additional clinical history: None Com plications: No immediate complications. IMPRESSION: Ultrasound-guided nonfocal left renal biopsy. Plan: Specimen(s) sent for evaluation. PROCEDURE S UMMARY: - Percutaneous US-guided coaxial core needle biopsy - Additional pro cedure(s): None PROCEDURE DETAILS: Pre-procedure Reference imaging f or biopsy target: Renal ultrasound 02/11/2019 Consent: Informed consent for th e procedure including risks, benefits and alternatives was obtained and time-o ut was performed prior to the procedure. Preparation: The site was prepared an d draped using maximal sterile barrier technique including cutaneous antisepsi s. Anesthesia/sedation Level of anesthesia/sedation: Moderate sedation (c onscious sedation) 1mg Versed, 50mcg Fentanyl Anesthesia/sedation administer ed by: Independent trained observer under attending supervision with continuou s monitoring of the patient?s level of consciousness and physiologic status Total intra-service sedation time (minutes): 30 Imaging prior to biopsy T he patient was positioned prone. Initial ultrasound was performed. Biopsy targ et: - Maximal diameter (cm): N/A - Location: Left renal cortex Other findi ngs: None Biopsy Local anesthesia was administered. Under US guidance, t he biopsy needle was advanced to the target and biopsy was performed. Coaxia l needle: 17 gauge Core needle biopsy device: [employer] Core needle size: 18 gauge Number of core specimens: 4 On-site biopsy touch preparat ion: Yes Additional sampling recommendations: None Preliminary assessment of sample adequacy: Adequate Needle removal The biopsy needle was removed and a sterile dressing was applied. Tract embolization: Gelfoam slurry I maging following biopsy Immediate post-biopsy ultrasound was performed. Post -biopsy imaging findings: No hematoma Additional Details Additional descr iption of procedure: None Equipment details: None Specimens removed: Biopsy samples as detailed above Estimated blood loss (mL): Less than 10 Standardiz ed report: SIR_BiopsyUS_v3 Attestation Signer name: Arian Gil MD I at test that I was present for the entire procedure. I reviewed the stored images and agree with the report as written. Signed by: Arian Gil MD on 019 5:29 PM Dictated By: ARIAN GIL MD 19 Transcribed By: GERARD on 03/03/191419 COPY TO: ETHAN DANIELS MD Blood Gcufocu6131-64-59 14:44:00* Test Item Value Reference Range Interpretation Comments Blood Culture (test code = 51075197) NO GROWTH AFTER 5 DAYS, FINAL REPORT [facility] Bfqnmml5117-74-84 14:44:00* Test Item Value Reference Range Interpretation Comments Blood Culture (test code = 04215905) NO GROWTH AFTER 5 DAYS, FINAL REPORT [facility] McAllenPhosphorus Wmwlp3198-74-61 05:58:00* Test Item Value Reference Range Interpretation Comments Phosphorus Level (test code = ZFS4480) 6.3 2.3-4.7 H [facility] McAllenPhosphorus Obyiw0632-56-17 05:58:00* Test Item Value Reference Range Interpretation Comments Phosphorus Level (test code = DBG8891) 6.3 2.3-4.7 H [facility] McAllenProthrombin Ykjf4700-44-43 05:54:00* Test Item Value Reference Range Interpretation Comments Prothrombin Time (test code = 5902-2) 14.0 11.9-14.5 [facility]AllenProthromb Time International Ratio 2019-02-15 05:54:00* Test Item Value Reference Range Interpretation Comments Prothromb Time International Ratio (test code = 6301-6) 1.03 Oral Anticoagulant Therapy INR Values:1. Low Intensity Therapy 1.5 - 2.02 . Moderate Intensity Therapy 2.0 - 3.03. High Intensity Therapy(1) 2.5 - 3. 54. High Intensity Therapy(2) 3.0 - 4.05. Panic Value INR > 5.0 [facility] McAllenActivated Partial Thromboplast Time 2019-02-15 05:54:00* Test Item Value Reference Range Interpretation Comments Activated Partial Thromboplast Time (test code = 26733-4) 65.4 23.8-35.5 H [facility] McAllenProthrombin Foji3517-86-50 05:54:00* Test Item Value Reference Range Interpretation Comments Prothrombin Time (test code = 5902-2) 14.0 11.9-14.5 [facility]AllenProthromb Time International Ratio 2019-02-15 05:54:00* Test Item Value Reference Range Interpretation Comments Prothromb Time International Ratio (test code = 6301-6) 1.03 Oral Anticoagulant Therapy INR Values:1. Low Intensity Therapy 1.5 - 2.02 . Moderate Intensity Therapy 2.0 - 3.03. High Intensity Therapy(1) 2.5 - 3. 54. High Intensity Therapy(2) 3.0 - 4.05. Panic Value INR > 5.0 [facility] McAllenActivated Partial Thromboplast Time 2019-02-15 05:54:00* Test Item Value Reference Range Interpretation Comments Activated Partial Thromboplast Time (test code = 86024-9) 65.4 23.8-35.5 H [facility] McAllenHemoglobin A1c Wfangej6103-74-98 13:59:00 * Test Item Value Reference Range Interpretation Comments Hemoglobin A1c Percent (test code = Hemoglobin A1c Percent) 8.1 4.0-7.0 H [facility] McAllenHemoglobin A1c Yoaivzr2550-02-42 13:59:00 * Test Item Value Reference Range Interpretation Comments Hemoglobin A1c Percent (test code = Hemoglobin A1c Percent) 8.1 4.0-7.0 H [facility] McAllenFerritin2019-12-28 06:02:00* Test Item Value Reference Range Interpretation Comments Ferritin (test code = 2276-4) 260.55 21.81-274.66 [facility] McAllenFerritin2019-12-28 06:02:00* Test Item Value Reference Range Interpretation Comments Ferritin (test code = 2276-4) 260.55 21.81-274.66 [facility] McAllenIron Oxhzw2838-85-08 05:43:00* Test Item Value Reference Range Interpretation Comments Iron Level (test code = 2498-4) 43 65-175 L [facility]AllenTotal Iron Binding Tmlozjng7911-96-93 05:43:00* Test Item Value Reference Range Interpretation Comments Total Iron Binding Capacity (test code = 2500-7) 235 261-4 78 L [facility] McAllenPercent Iron Itxsclcywz7732-67-21 05:43:00* Test Item Value Reference Range Interpretation Comments Percent Iron Saturation (test code = 2502-3) 18 15-50 [facility] McAllenTransferrin2019-12-28 05:43:00* Test Item Value Reference Range Interpretation Comments Transferrin (test code = 3034-6) 168 174-364 L [facility]AllenIron Vunwf6589-71-69 05:43:00* Test Item Value Reference Range Interpretation Comments Iron Level (test code = 2498-4) 43 65-175 L [facility]AllenTotal Iron Binding Yivxsdud8891-69-69 05:43:00* Test Item Value Reference Range Interpretation Comments Total Iron Binding Capacity (test code = 2500-7) 235 261-4 78 L [facility] McAllenPercent Iron Zhkutivaay7443-65-38 05:43:00* Test Item Value Reference Range Interpretation Comments Percent Iron Saturation (test code = 2502-3) 18 15-50 [facility] McAllenTransferrin2019-12-28 05:43:00* Test Item Value Reference Range Interpretation Comments Transferrin (test code = 3034-6) 168 174-364 L [facility] McAllenUrine Random Total Fznjpyu5497-46-29 20:56:00* Test Item Value Reference Range Interpretation Comments Urine Random Total Protein (test code = 2888-6) 422.4 1-14 H [facility] McAllenUrine Protein/Creatinine Wftpq2490-66-69 20:56:00* Test Item Value Reference Range Interpretation Comments Urine Protein/Creatinine Ratio (test code = 53540-6) 8.00 [facility]AllenUrine Random Total Jojardl1908-08-37 20:56:00* Test Item Value Reference Range Interpretation Comments Urine Random Total Protein (test code = 2888-6) 422.4 1-14 H [facility] McAllenUrine Protein/Creatinine Fnusp9557-60-87 20:56:00* Test Item Value Reference Range Interpretation Comments Urine Protein/Creatinine Ratio (test code = 02810-0) 8.00 [facility] McAllenUrine Matuaboclv2283-97-66 20:05:00* Test Item Value Reference Range Interpretation Comments Urine Creatinine (test code = 2161-8) 51.40 63-166 L [facility] McAllenUrine Httvwagdjb7051-52-57 20:05:00* Test Item Value Reference Range Interpretation Comments Urine Creatinine (test code = 2161-8) 51.40 63-166 L [facility] McAllenUS RENAL RETROPERITONEAL VIJJ8464-19-55 16:51:00 [facility] [address] [address] Patient Name: GABRIELA MERCER MR #: [id number] : 1980 Age/Sex: 38/M Req #: [id number] Adm Physician: PRINCE HALE MD Ordered by: LORENZO FITZGERALD MD Report #: [id number] Location: MED/SURG2 Room/Bed: [facility] Procedure: [id number] US/ US RENAL RETROPERITONEAL COMP Exam Date: 02/11/19 Ex am Time: 1549 REPORT STATUS: Signed EXAM: US RENAL RETROPERITONEAL COMP DATE: 02/11/2019 12:00 AM I NDICATION: Renal disease COMPARISON: CT abdomen/pelvis from 06/14/2018 FINDINGS: The right kidney is normal in size measuring 9.9 x 4.8 x 4.7 cm wi th cortical thickness of 1.2 cm. Cortical echogenicity is mildly increased. Th ere is no evidence for solid renal mass, hydronephrosis, or shadowing calculi. The left kidney is normal in size measuring 10.3 x 6.2 x 5.1 cm with corti trey thickness of 1.1 cm. Cortical echogenicity is mildly increased. There is n o evidence for solid renal mass, hydronephrosis, or shadowing calcified. The urinary bladder and trace no significant abnormalities. IMPRESSION: Mildly increased bilateral renal cortical echogenicity which can be seen in the setting of medical renal disease. Otherwise, unremarkable renal ultr asound examination. Signed by: Dr. Ld Ruiz MD on 02/11/2019 4:54 PM Dictated By: LD RUIZ MD 53 Transcribed By: GERARD on 02/11/191653 COPY TO: LORENZO FITZGERALD MD Lactic Acid Abven5552-96-64 19:21:00* Test Item Value Reference Range Interpretation Comments Lactic Acid Level (test code = Lactic Acid Level) 1.5 0.5- 2.0 [facility] McAllenLactic Acid Rpopz6058-23-91 19:21:00* Test Item Value Reference Range Interpretation Comments Lactic Acid Level (test code = Lactic Acid Level) 1.5 0.5- 2.0 [facility] McAllenPlatelet Morphology Uzarldw5816-88-82 13:13:00* Test Item Value Reference Range Interpretation Comments Platelet Morphology Comment (test code = 67620-2) MOD HIGH NEUTR OPHIL COUNT [facility] McAllenPlatelet Morphology Ttorbrf3492-03-16 13:13:00* Test Item Value Reference Range Interpretation Comments Platelet Morphology Comment (test code = 96661-0) MOD HIGH NEUTR OPHIL COUNT [facility] McAllenUrine Tscvv4234-01-17 12:42:00* Test Item Value Reference Range Interpretation Comments Urine Color (test code = 5778-6) YELLOW YELLOW [facility] McAllenUrine Bezxwzw9797-00-48 12:42:00* Test Item Value Reference Range Interpretation Comments Urine Clarity (test code = 45581-6) CLEAR CLEAR [facility] McAllenUrine Specific Gnphtnb6792-88-39 12:42:00 * Test Item Value Reference Range Interpretation Comments Urine Specific [place] (test code = 5811-5) 1.005 1.010-1.02 5 L [facility] McAllenUrine hL5776-66-63 12:42:00* Test Item Value Reference Range Interpretation Comments Urine pH (test code = 39730-0) 7.5 5-7 [facility]AllenUrine Leukocyte Dfdyzfwi5330-87-13 12:42:00* Test Item Value Reference Range Interpretation Comments Urine Leukocyte Esterase (test code = 5799-2) NEGATIVE NEGATIVE [facility]AllenUrine Uwsbprh3591-67-90 12:42:00* Test Item Value Reference Range Interpretation Comments Urine Nitrite (test code = 18518-3) NEGATIVE NEGATIVE [facility]AllenUrine Ojaiezb9739-33-63 12:42:00* Test Item Value Reference Range Interpretation Comments Urine Protein (test code = 5804-0) 2+ NEGATIVE H [facility] McAllenUrine Glucose (UA)2019-02-10 12:42:00* Test Item Value Reference Range Interpretation Comments Urine Glucose (UA) (test code = 2349-9) 3+ NEGATIVE H [facility] Ikxxahg9163-91-95 12:42:00* Test Item Value Reference Range Interpretation Comments Urine Ketones (test code = 35470-4) NEGATIVE NEGATIVE [facility] Qfyijrzcyrmz6803-31-46 12:42:00* Test Item Value Reference Range Interpretation Comments Urine Urobilinogen (test code = 44436-0) 0.2 0.2-1 [facility] Tihsscmga6698-39-76 12:42:00* Test Item Value Reference Range Interpretation Comments Urine Bilirubin (test code = 1978-6) MODERATE NEGATIVE [facility] Wvurt7748-66-35 12:42:00* Test Item Value Reference Range Interpretation Comments Urine Blood (test code = 53548-9) NEGATIVE NEGATIVE [facility]AllenUrine KAI0181-27-88 12:42:00* Test Item Value Reference Range Interpretation Comments Urine WBC (test code = 5821-4) 0-5 0-5 [facility]AllenUrine ULH9099-10-69 12:42:00* Test Item Value Reference Range Interpretation Comments Urine RBC (test code = 58033-8) 0-5 0-5 [facility]AllenUrine Ncnqwkfr1004-97-05 12:42:00* Test Item Value Reference Range Interpretation Comments Urine Bacteria (test code = 86247-6) RARE NONE [facility]AllenUrine Epithelial Hqzcu6522-43-85 12:42:00 * Test Item Value Reference Range Interpretation Comments Urine Epithelial Cells (test code = 85903-5) FEW NONE [facility]AllenUrine Hujlx7835-84-78 12:42:00* Test Item Value Reference Range Interpretation Comments Urine Color (test code = 5778-6) YELLOW YELLOW [facility]AllenUrine Ejceupv2522-29-67 12:42:00* Test Item Value Reference Range Interpretation Comments Urine Clarity (test code = 49648-9) CLEAR CLEAR [facility] Specific Wrujsiv4483-09-75 12:42:00 * Test Item Value Reference Range Interpretation Comments Urine Specific [place] (test code = 5811-5) 1.005 1.010-1.02 5 L [facility]AllenUrine fI0325-97-83 12:42:00* Test Item Value Reference Range Interpretation Comments Urine pH (test code = 63975-9) 7.5 5-7 [facility] Leukocyte Xcurorhx4558-74-27 12:42:00* Test Item Value Reference Range Interpretation Comments Urine Leukocyte Esterase (test code = 5799-2) NEGATIVE NEGATIVE [facility] Slnqeai6829-42-48 12:42:00* Test Item Value Reference Range Interpretation Comments Urine Nitrite (test code = 98183-5) NEGATIVE NEGATIVE [facility]AllenUrine Sblzibz5178-73-26 12:42:00* Test Item Value Reference Range Interpretation Comments Urine Protein (test code = 5804-0) 2+ NEGATIVE H [facility] Glucose (UA)2019-02-10 12:42:00* Test Item Value Reference Range Interpretation Comments Urine Glucose (UA) (test code = 2349-9) 3+ NEGATIVE H [facility]AllenUrine Grywmtt8827-60-56 12:42:00* Test Item Value Reference Range Interpretation Comments Urine Ketones (test code = 35145-7) NEGATIVE NEGATIVE [facility]AllenU[facility] Abrflfvcmvlr7091-79-51 12:42:00* Test Item Value Reference Range Interpretation Comments Urine Urobilinogen (test code = 21947-9) 0.2 0.2-1 [facility]AllenU[facility] Cseugjozq1755-09-35 12:42:00* Test Item Value Reference Range Interpretation Comments Urine Bilirubin (test code = 1978-6) MODERATE NEGATIVE [facility]AllenU[facility] Gychg5160-75-04 12:42:00* Test Item Value Reference Range Interpretation Comments Urine Blood (test code = 93452-3) NEGATIVE NEGATIVE [facility]AllenU[facility] PRA2196-36-50 12:42:00* Test Item Value Reference Range Interpretation Comments Urine WBC (test code = 5821-4) 0-5 0-5 [facility]AllenU[facility] FEG9536-72-79 12:42:00* Test Item Value Reference Range Interpretation Comments Urine RBC (test code = 81991-6) 0-5 0-5 [facility]AllenU[facility] Nxvkxyyc8896-72-15 12:42:00* Test Item Value Reference Range Interpretation Comments Urine Bacteria (test code = 78995-9) RARE NONE [facility]AllenU[facility] Epithelial Fgtow2812-77-73 12:42:00 * Test Item Value Reference Range Interpretation Comments Urine Epithelial Cells (test code = 18596-6) FEW NONE [facility] McAllenMagnesium Ihpyd7037-81-44 12:34:00* Test Item Value Reference Range Interpretation Comments Magnesium Level (test code = 69015-3) 1.3 1.3-2.1 [facility]AllenTotal Uughybjyn9873-00-62 12:34:00* Test Item Value Reference Range Interpretation Comments Total Bilirubin (test code = 1975-2) 0.7 0.2-1.2 [facility] McAllenAspartate Amino Transf (AST/SGOT) 2019-02-10 12:34:00* Test Item Value Reference Range Interpretation Comments Aspartate Amino Transf (AST/SGOT) (test code = Aspartate Amino Transf (AST/SGOT)) 21 5-34 [facility] McAllenAlanine Aminotransferase (ALT/SGPT) 2019-02-10 12:34:00* Test Item Value Reference Range Interpretation Comments Alanine Aminotransferase (ALT/SGPT) (test code = 1742-6) 40 0-55 [facility]AllenTotal Jrzjoxd6417-53-44 12:34:00* Test Item Value Reference Range Interpretation Comments Total Protein (test code = 2885-2) 6.6 6.5-8.1 [facility] McAllenAlbumin2019-12-25 12:34:00* Test Item Value Reference Range Interpretation Comments Albumin (test code = 1751-7) 2.7 3.5-5.0 L [facility] McAllenGlobulin2019-12-25 12:34:00* Test Item Value Reference Range Interpretation Comments Globulin (test code = 79303-3) 3.9 2.3-3.5 H [facility] McAllenAlbumin/Globulin Zksqf6604-24-47 12:34:00 * Test Item Value Reference Range Interpretation Comments Albumin/Globulin Ratio (test code = 1759-0) 0.7 0.8-2.0 L [facility] McAllenAlkaline Klnrhfzmpei4230-24-97 12:34:00* Test Item Value Reference Range Interpretation Comments Alkaline Phosphatase (test code = 6768-6) 87 40-150 [facility] McAllenAmylase Etiaw8315-91-75 12:34:00* Test Item Value Reference Range Interpretation Comments Amylase Level (test code = 1798-8) 73 25-125 [facility] McAllenLipase2019-12-25 12:34:00* Test Item Value Reference Range Interpretation Comments Lipase (test code = 3040-3) 36 8-78 [facility] McAllenMagnesium Iupdo2558-28-54 12:34:00* Test Item Value Reference Range Interpretation Comments Magnesium Level (test code = 26927-0) 1.3 1.3-2.1 [facility] McAllenAmylase Dtzwa8306-48-46 12:34:00* Test Item Value Reference Range Interpretation Comments Amylase Level (test code = 1798-8) 73 25-125 [facility] McAllenLipase2019-12-25 12:34:00* Test Item Value Reference Range Interpretation Comments Lipase (test code = 3040-3) 36 8-78 [facility] McAllenDifferential Total Cells Counted 2018-06-17 14:16:00* Test Item Value Reference Range Interpretation Comments Differential Total Cells Counted (test code = Differen tial Total Cells Counted) 100 [facility] McAllenNeutrophils % (Manual)2018-06-17 14:16:00 * Test Item Value Reference Range Interpretation Comments Neutrophils % (Manual) (test code = 02077-7) 67 40-74 [facility] McAllenLymphocytes % (Manual)2018-06-17 14:16:00 * Test Item Value Reference Range Interpretation Comments Lymphocytes % (Manual) (test code = 737-7) 18 19-48 L [facility] McAllenMonocytes % (Manual)2018-06-17 14:16:00* Test Item Value Reference Range Interpretation Comments Monocytes % (Manual) (test code = 744-3) 13 3.4-9.0 H [facility]AllenEosinophils % (Manual)2018-06-17 14:16:00 * Test Item Value Reference Range Interpretation Comments Eosinophils % (Manual) (test code = 714-6) 2 0-7 [facility] McAllenPlatelet Whpwmvjm8963-84-55 14:16:00* Test Item Value Reference Range Interpretation Comments Platelet Estimate (test code = 65668-5) ADEQUATE [facility] McAllenHypochromasia2019-05-01 14:16:00* Test Item Value Reference Range Interpretation Comments Hypochromasia (test code = 728-6) SLIGHT [facility] McAllenAnisocytosis2019-05-01 14:16:00* Test Item Value Reference Range Interpretation Comments Anisocytosis (test code = 702-1) SLIGHT [facility] McAllenRed Cell Morphology Qpummrn4833-08-06 14:16:00* Test Item Value Reference Range Interpretation Comments Red Cell Morphology Comment (test code = 6742-1) NORMAL [facility] McAllenDifferential Total Cells Counted 2018-06-17 14:16:00* Test Item Value Reference Range Interpretation Comments Differential Total Cells Counted (test code = Differashely tial Total Cells Counted) 100 [facility] McAllenNeutrophils % (Manual)2018-06-17 14:16:00 * Test Item Value Reference Range Interpretation Comments Neutrophils % (Manual) (test code = 64606-3) 67 40-74 [facility] McAllenLymphocytes % (Manual)2018-06-17 14:16:00 * Test Item Value Reference Range Interpretation Comments Lymphocytes % (Manual) (test code = 737-7) 18 19-48 L [facility] McAllenMonocytes % (Manual)2018-06-17 14:16:00* Test Item Value Reference Range Interpretation Comments Monocytes % (Manual) (test code = 744-3) 13 3.4-9.0 H [facility]AllenEosinophils % (Manual)2018-06-17 14:16:00 * Test Item Value Reference Range Interpretation Comments Eosinophils % (Manual) (test code = 714-6) 2 0-7 [facility] McAllenPlatelet Mhxdwrwn5026-19-21 14:16:00* Test Item Value Reference Range Interpretation Comments Platelet Estimate (test code = 54416-3) ADEQUATE [facility] McAllenHypochromasia2019-05-01 14:16:00* Test Item Value Reference Range Interpretation Comments Hypochromasia (test code = 728-6) SLIGHT [facility] McAllenAnisocytosis2019-05-01 14:16:00* Test Item Value Reference Range Interpretation Comments Anisocytosis (test code = 702-1) SLIGHT [facility] McAllenRed Cell Morphology Qbaqeth3869-07-68 14:16:00* Test Item Value Reference Range Interpretation Comments Red Cell Morphology Comment (test code = 6742-1) NORMAL [facility] McAllenBedside Duzeevg3028-16-63 11:43:00* Test Item Value Reference Range Interpretation Comments Bedside Glucose (test code = 17930-2) 198 70-120 H Meter ID: [id number] [facility] Healthcare Mainlandodium Level 2018-06-17 07:39:00* Test Item Value Reference Range Interpretation Comments Sodium Level (test code = 2951-2) 137 136-145 [facility] McAllenPotassium Xhket3318-67-45 07:39:00* Test Item Value Reference Range Interpretation Comments Potassium Level (test code = 2823-3) 3.8 3.5-5.1 [facility] McAllenChloride Dhvyq8749-90-15 07:39:00* Test Item Value Reference Range Interpretation Comments Chloride Level (test code = 2075-0) 105 98-107 [facility] McAllenCarbon Dioxide Yogpe1520-75-91 07:39:00* Test Item Value Reference Range Interpretation Comments Carbon Dioxide Level (test code = 2028-9) 24 22-29 [facility] McAllenAnion Yxe1278-36-72 07:39:00* Test Item Value Reference Range Interpretation Comments Anion Gap (test code = 74534-1) 11.8 8-16 [facility] McAllenBlood Urea Ulrrqxrt9385-89-08 07:39:00* Test Item Value Reference Range Interpretation Comments Blood Urea Nitrogen (test code = 3094-0) 17 7-26 [facility] McAllenCreatinine2019-05-01 07:39:00* Test Item Value Reference Range Interpretation Comments Creatinine (test code = 2160-0) 2.58 0.72-1.25 H [facility] McAllenBUN/Creatinine Cunbi6526-98-89 07:39:00* Test Item Value Reference Range Interpretation Comments BUN/Creatinine Ratio (test code = 3097-3) 7 6- [facility] McAllenEstimat Glomerular Filtration Rate 2018-06-17 07:39:00* Test Item Value Reference Range Interpretation Comments Estimat Glomerular Filtration Rate (test code = 606824559) 28 >60 L Ranges were taken from the National Kidney Disease Education Program and the [facility] [employer] literature.Reference ranges:60 or greater: Lhqipo88-82 ( for 3 consecutive months): Chronic kidney disease 15 or less: Kidney failureSouth [facility] Health System McAllenGlucose Rjeng2963-95-68 07:39:00* Test Item Value Reference Range Interpretation Comments Glucose Level (test code = RFY3986) 191 74-118 H [facility] McAllenCalcium Anjkb8026-20-18 07:39:00* Test Item Value Reference Range Interpretation Comments Calcium Level (test code = 14828-0) 9.1 8.4-10.2 [facility] McAllenWhite Blood Oquqf1582-36-88 07:08:00* Test Item Value Reference Range Interpretation Comments White Blood Count (test code = 6690-2) 5.59 4.8-10.8 [facility] McAllenRed Blood Ebtxd3406-03-67 07:08:00* Test Item Value Reference Range Interpretation Comments Red Blood Count (test code = 789-8) 3.61 4.3-5.7 L [facility] McAllenHemoglobin2019-05-01 07:08:00* Test Item Value Reference Range Interpretation Comments Hemoglobin (test code = 46983-5) 10.6 14.0-18.0 L [facility] McAllenHematocrit2019-05-01 07:08:00* Test Item Value Reference Range Interpretation Comments Hematocrit (test code = 4544-3) 32.2 38.2-49.6 L [facility] McAllenMean Corpuscular Mbauyk7408-19-93 07:08:00* Test Item Value Reference Range Interpretation Comments Mean Corpuscular Volume (test code = 787-2) 89.2 81-99 [facility] McAllenMean Corpuscular Kbajrojrxa1636-46-99 07:08:00* Test Item Value Reference Range Interpretation Comments Mean Corpuscular Hemoglobin (test code = 785-6) 29.4 28-32 [facility] Corpuscular Hemoglobin Concent 2018-06-17 07:08:00* Test Item Value Reference Range Interpretation Comments Mean Corpuscular Hemoglobin Concent (test code = 786-4) 32.9 31-35 [facility] McAllenRed Cell Distribution Ncpac0377-06-21 07:08:00* Test Item Value Reference Range Interpretation Comments Red Cell Distribution Width (test code = 89369-2) 13.4 11.7 -14.4 [facility] McAllenPlatelet Kjwfn7721-41-81 07:08:00* Test Item Value Reference Range Interpretation Comments Platelet Count (test code = 777-3) 212 140-360 [facility] McAllenVancomycin Level Vhvhti8107-67-24 00:22:00* Test Item Value Reference Range Interpretation Comments Vancomycin Level Trough (test code = 4092-3) 9.1 5.0-10.0 [facility] McAllenVancomycin Level Dpsvhc2015-62-73 00:22:00* Test Item Value Reference Range Interpretation Comments Vancomycin Level Trough (test code = 4092-3) 9.1 5.0-10.0 [facility] McAllenVancomycin Level Jchgpb3330-78-40 00:22:00* Test Item Value Reference Range Interpretation Comments Vancomycin Level Trough (test code = 4092-3) 9.1 5.0-10.0 [facility] Qzyhxmw5367-91-13 20:03:00* Test Item Value Reference Range Interpretation Comments Blood Culture (test code = 36435890) NO GROWTH AFTER 48 HOURS [facility] Blhgbjjnp7444-98-09 06:07:00* Test Item Value Reference Range Interpretation Comments Total Bilirubin (test code = 1975-2) 0.4 0.2-1.2 [facility]AllenAspartate Amino Transf (AST/SGOT) 2018-06-15 06:07:00* Test Item Value Reference Range Interpretation Comments Aspartate Amino Transf (AST/SGOT) (test code = Aspartate Amino Transf (AST/SGOT)) 20 5-34 [facility]AllenAlanine Aminotransferase (ALT/SGPT) 2018-06-15 06:07:00* Test Item Value Reference Range Interpretation Comments Alanine Aminotransferase (ALT/SGPT) (test code = 1742-6) 26 0-55 [facility] Rwipcxd0134-30-27 06:07:00* Test Item Value Reference Range Interpretation Comments Total Protein (test code = 2885-2) 5.8 6.5-8.1 L [facility]AllenAlbumin2019-04-29 06:07:00* Test Item Value Reference Range Interpretation Comments Albumin (test code = 1751-7) 2.2 3.5-5.0 L [facility]AllenGlobulin2019-04-29 06:07:00* Test Item Value Reference Range Interpretation Comments Globulin (test code = 95727-2) 3.6 2.3-3.5 H [facility]AllenAlbumin/Globulin Dnxxc9358-80-24 06:07:00 * Test Item Value Reference Range Interpretation Comments Albumin/Globulin Ratio (test code = 1759-0) 0.6 0.8-2.0 L [facility]AllenAlkaline Zoxfompnjqt2014-42-05 06:07:00* Test Item Value Reference Range Interpretation Comments Alkaline Phosphatase (test code = 6768-6) 53 40-150 [facility]AllenNeutrophils (%) (Auto)2018-06-15 05:52:00 * Test Item Value Reference Range Interpretation Comments Neutrophils (%) (Auto) (test code = 67762-4) 73.0 38.7-80.0 [facility]AllenLymphocytes (%) (Auto)2018-06-15 05:52:00 * Test Item Value Reference Range Interpretation Comments Lymphocytes (%) (Auto) (test code = 736-9) 18.2 18.0-39.1 [facility]AllenMonocytes (%) (Auto)2018-06-15 05:52:00* Test Item Value Reference Range Interpretation Comments Monocytes (%) (Auto) (test code = 5905-5) 6.6 4.4-11.3 [facility]AllenEosinophils (%) (Auto)2018-06-15 05:52:00 * Test Item Value Reference Range Interpretation Comments Eosinophils (%) (Auto) (test code = 713-8) 1.5 0.0-6.0 [facility]AllenBasophils (%) (Auto)2018-06-15 05:52:00* Test Item Value Reference Range Interpretation Comments Basophils (%) (Auto) (test code = 706-2) 0.5 0.0-1.0 [facility]AllenIM GRANULOCYTES %2018-06-15 05:52:00* Test Item Value Reference Range Interpretation Comments IM GRANULOCYTES % (test code = IM GRANULOCYTES %) 0.2 0.0- 1.0 [facility]AllenNeutrophils # (Auto)2018-06-15 05:52:00* Test Item Value Reference Range Interpretation Comments Neutrophils # (Auto) (test code = 751-8) 4.5 2.1-6.9 [facility]AllenLymphocytes # (Auto)2018-06-15 05:52:00* Test Item Value Reference Range Interpretation Comments Lymphocytes # (Auto) (test code = 37645-6) 1.1 1.0-3.2 [facility]AllenMonocytes # (Auto)2018-06-15 05:52:00* Test Item Value Reference Range Interpretation Comments Monocytes # (Auto) (test code = 742-7) 0.4 0.2-0.8 [facility]AllenEosinophils # (Auto)2018-06-15 05:52:00* Test Item Value Reference Range Interpretation Comments Eosinophils # (Auto) (test code = 711-2) 0.1 0.0-0.4 [facility]AllenBasophils # (Auto)2018-06-15 05:52:00* Test Item Value Reference Range Interpretation Comments Basophils # (Auto) (test code = 704-7) 0.0 0.0-0.1 [facility]AllenAbsolute Immature Granulocyte (auto 2018-06-15 05:52:00* Test Item Value Reference Range Interpretation Comments Absolute Immature Granulocyte (auto (andi t code = Absolute Immature Granulocyte (auto) 0.01 0-0.1 [facility]AllenUrine [id number] 21:15:00* Test Item Value Reference Range Interpretation Comments Urine WBC (test code = 5821-4) 0-5 0-5 [facility]AllenUrine [id number] 21:15:00* Test Item Value Reference Range Interpretation Comments Urine RBC (test code = 56489-6) 0-5 0-5 [facility]AllenUrine Hipwpzev5608-63-53 21:15:00* Test Item Value Reference Range Interpretation Comments Urine Bacteria (test code = 85800-9) RARE NONE [facility]AllenUrine Epithelial Rdjou7537-26-33 21:15:00 * Test Item Value Reference Range Interpretation Comments Urine Epithelial Cells (test code = 11841-2) NONE NONE [facility] McAllenCT ABDOMEN/PELVIS [id number] 21:14:00 [facility] [address] [address] Patient Name: GABRIELA MERCER MR #: [id number] : 1980 Age/Sex: 38/M Req #: [id number] Adm Physician: Ordered by: ISIDRA FIERRO NP Report #: [id number] Location: ER Room/Bed: Procedure: [id number] CT /CT ABDOMEN/PELVIS WO Exam Date: 06/14/18 Exam Time: 1924 REPORT STATUS: Signed EXAM: CT Abdomen and Pelvis WITHOUT contrast INDICATION: Low back pain. Nausea and vomiting. Fever and chills. Dysuria. COMPARISON: 08/18/2017. TECHNIQUE: Abd omen and pelvis were scanned utilizing a multidetector helical scanner from th e lung base to the pubic symphysis without administration of IV contrast. Abse nce of intravenous contrast decreases sensitivity for detection of focal lesio ns and vascular pathology. Coronal and sagittal reformations were obtained. Ro utine protocol was performed. IV CONTRAST: None. OR AL CONTRAST: Water RADIATION DOSE: Total DLP: 726.66 mGy*cm Estimated effective dose: (DLP x 0.015 x size factor) mSv COMPLICATIONS: None FINDINGS: LINES and TUBES: None. LOWER THORA X: Unremarkable HEPATOBILIARY: Hepatic steatosis. No focal hepatic lesion s. No biliary ductal dilation. GALLBLADDER: No radio-opaque stones or sl udge. No wall thickening. SPLEEN: No splenomegaly. PANCREAS: No foca l masses or ductal dilatation. ADRENALS: No adrenal nodules KIDN EYS/URETERS: No hydronephrosis. No cystic or solid mass lesions. 1.5 mm obst ructing calculus in the lower pole of the right kidney on image 84. Punctate n onobstructing calculus in the lower pole of the left kidney on image 81. Punct ate nonobstructing calculus in the upper pole of the left kidney on images 60 . GI TRACT: No abnormal distention, wall thickening, or evidence of bowel obstruction. There are diverticula within the colon without evidence of dive rticulitis. Appendix is normal. PELVIC ORGANS/BLADDER: Unremarkable. LYMPH NODES: No lymphadenopathy. VESSELS: Unremarkable. PERITONEUM / R ETROPERITONEUM: No free air or fluid. BONES: Unremarkable. SOFT TISSUE S: Moderate size fat-containing umbilical hernia with sac estimated at 6.3 cm, and aperture estimated at 2.6 cm in transverse dimension. IMPRESSION: 1. Bilateral punctate nonobstructing calculi. No hydronephrosis. 2. Colonic d iverticulosis without diverticulitis. 3. Hepatic steatosis. 4. Moderate si ze fat-containing umbilical hernia with sac estimated at 6.3 cm, and aperture estimated at 2.6 cm in transverse dimension. Signed by: Dr. Sandee gonzalez M.D. on 06/14/2018 9:20 PM Dictated By: LUCY MANNING MD, MD Elect ronically Signed By: LUCY MANNING MD, MD on 06/14/182119 Transcribed By: COMT RAN on 06/14/182119 COPY TO: ISIDRA FIERRO [employer] MANAGER [employer] Urine Color 2018-06-14 20:49:00* Test Item Value Reference Range Interpretation Comments Urine Color (test code = 5778-6) YELLOW YELLOW [facility]AllenU[facility] Irqkzwf3688-39-56 20:49:00* Test Item Value Reference Range Interpretation Comments Urine Clarity (test code = 73388-2) CLEAR CLEAR [facility]AllenUrine Specific Kyetmuv3955-58-39 20:49:00 * Test Item Value Reference Range Interpretation Comments Urine Specific [place] (test code = 5811-5) 1.015 1.010-1.02 5 [facility]AllenUrine [id number] 20:49:00* Test Item Value Reference Range Interpretation Comments Urine pH (test code = 25444-3) 8 5-7 H [facility]AllenU[facility] Leukocyte Pgadcdps9357-41-13 20:49:00* Test Item Value Reference Range Interpretation Comments Urine Leukocyte Esterase (test code = 5799-2) NEGATIVE NEGATIVE [facility]AllenU[facility] Mqdmfoo6392-12-38 20:49:00* Test Item Value Reference Range Interpretation Comments Urine Nitrite (test code = 62013-8) NEGATIVE NEGATIVE [facility]AllenUrine Otwuwpz8656-76-48 20:49:00* Test Item Value Reference Range Interpretation Comments Urine Protein (test code = 5804-0) 3+ NEGATIVE H [facility]AllenUrine Glucose (UA)2018-06-14 20:49:00* Test Item Value Reference Range Interpretation Comments Urine Glucose (UA) (test code = 2349-9) 1+ NEGATIVE H [facility]AllenUrine Lktuvdn3417-61-35 20:49:00* Test Item Value Reference Range Interpretation Comments Urine Ketones (test code = 00908-1) NEGATIVE NEGATIVE [facility]AllenU[facility] Vakvachicorx6440-12-12 20:49:00* Test Item Value Reference Range Interpretation Comments Urine Urobilinogen (test code = 56438-3) 0.2 0.2-1 [facility]AllenU[facility] Vwonniedc8534-56-70 20:49:00* Test Item Value Reference Range Interpretation Comments Urine Bilirubin (test code = 1978-6) NEGATIVE NEGATIVE [facility]AllenU[facility] Yiivf9649-55-10 20:49:00* Test Item Value Reference Range Interpretation Comments Urine Blood (test code = 49773-9) TRACE NEGATIVE H [facility] McAllenLactic Acid Klqpv8265-22-41 20:31:00* Test Item Value Reference Range Interpretation Comments Lactic Acid Level (test code = Lactic Acid Level) 19.4 4.5- 19.8 [facility]AllenBedside Tasjzah4588-94-50 15:48:00* Test Item Value Reference Range Interpretation Comments Bedside Glucose (test code = 39751-3) 99 70-120 Meter ID: [id number][facility]Blood Culture 2018-03-08 15:18:00* Test Item Value Reference Range Interpretation Comments Blood Culture (test code = 04577888) NO GROWTH AFTER 5 DAYS, FINAL REPORT [facility]AllenVancomycin Level Jiorju2408-78-34 12:22:00* Test Item Value Reference Range Interpretation Comments Vancomycin Level Trough (test code = 4092-3) 11.6 5.0-10.0 HH Results called to DALTON AKCERMAN RN at 1221 on 03/07/18 by Flaquita Jha. RB OK. [facility]AllenWhite Blood Kbmsj8810-90-69 06:08:00* Test Item Value Reference Range Interpretation Comments White Blood Count (test code = 6690-2) 5.80 4.8-10.8 [facility]AllenRed Blood Npyil7563-47-98 06:08:00* Test Item Value Reference Range Interpretation Comments Red Blood Count (test code = 789-8) 3.59 4.3-5.7 L [facility]AllenHemoglobin2019-01-19 06:08:00* Test Item Value Reference Range Interpretation Comments Hemoglobin (test code = 97272-8) 10.5 14.0-18.0 L [facility]AllenHematocrit2019-01-19 06:08:00* Test Item Value Reference Range Interpretation Comments Hematocrit (test code = 4544-3) 31.1 38.2-49.6 L [facility] McAllenMean Corpuscular Pbofxe3335-57-21 06:08:00* Test Item Value Reference Range Interpretation Comments Mean Corpuscular Volume (test code = 787-2) 86.6 81-99 [facility]Mean Corpuscular Rrawatsepg9588-96-59 06:08:00* Test Item Value Reference Range Interpretation Comments Mean Corpuscular Hemoglobin (test code = 785-6) 29.2 28-32 [facility] Corpuscular Hemoglobin Concent 2018-03-07 06:08:00* Test Item Value Reference Range Interpretation Comments Mean Corpuscular Hemoglobin Concent (test code = 786-4) 33.8 31-35 [facility]AllenRed Cell Distribution Caabz1584-73-46 06:08:00* Test Item Value Reference Range Interpretation Comments Red Cell Distribution Width (test code = 28218-6) 13.2 11.7 -14.4 [facility] McAllenPlatelet Wifcu4373-45-51 06:08:00* Test Item Value Reference Range Interpretation Comments Platelet Count (test code = 777-3) 224 140-360 [facility]AllenNeutrophils (%) (Auto)2018-03-07 06:08:00 * Test Item Value Reference Range Interpretation Comments Neutrophils (%) (Auto) (test code = 48794-0) 67.5 38.7-80.0 [facility]AllenLymphocytes (%) (Auto)2018-03-07 06:08:00 * Test Item Value Reference Range Interpretation Comments Lymphocytes (%) (Auto) (test code = 736-9) 17.8 18.0-39.1 L [facility]AllenMonocytes (%) (Auto)2018-03-07 06:08:00* Test Item Value Reference Range Interpretation Comments Monocytes (%) (Auto) (test code = 5905-5) 10.2 4.4-11.3 [facility]AllenEosinophils (%) (Auto)2018-03-07 06:08:00 * Test Item Value Reference Range Interpretation Comments Eosinophils (%) (Auto) (test code = 713-8) 3.1 0.0-6.0 [facility]AllenBasophils (%) (Auto)2018-03-07 06:08:00* Test Item Value Reference Range Interpretation Comments Basophils (%) (Auto) (test code = 706-2) 0.7 0.0-1.0 [facility]AllenIM GRANULOCYTES %2018-03-07 06:08:00* Test Item Value Reference Range Interpretation Comments IM GRANULOCYTES % (test code = IM GRANULOCYTES %) 0.7 0.0- 1.0 [facility]AllenNeutrophils # (Auto)2018-03-07 06:08:00* Test Item Value Reference Range Interpretation Comments Neutrophils # (Auto) (test code = 751-8) 3.9 2.1-6.9 [facility]AllenLymphocytes # (Auto)2018-03-07 06:08:00* Test Item Value Reference Range Interpretation Comments Lymphocytes # (Auto) (test code = 98297-0) 1.0 1.0-3.2 [facility]AllenMonocytes # (Auto)2018-03-07 06:08:00* Test Item Value Reference Range Interpretation Comments Monocytes # (Auto) (test code = 742-7) 0.6 0.2-0.8 [facility]AllenEosinophils # (Auto)2018-03-07 06:08:00* Test Item Value Reference Range Interpretation Comments Eosinophils # (Auto) (test code = 711-2) 0.2 0.0-0.4 [facility]AllenBasophils # (Auto)2018-03-07 06:08:00* Test Item Value Reference Range Interpretation Comments Basophils # (Auto) (test code = 704-7) 0.0 0.0-0.1 [facility]AllenAbsolute Immature Granulocyte (auto 2018-03-07 06:08:00* Test Item Value Reference Range Interpretation Comments Absolute Immature Granulocyte (auto (andi t code = Absolute Immature Granulocyte (auto) 0.04 0-0.1 [facility] McAllenLactic Acid Yqzpa6672-28-62 18:49:00* Test Item Value Reference Range Interpretation Comments Lactic Acid Level (test code = Lactic Acid Level) 7.7 4.5- 19.8 [facility]land[facility] Ipdgv0199-15-51 06:34:00* Test Item Value Reference Range Interpretation Comments Sodium Level (test code = 2951-2) 131 136-145 L [facility]AllenPotassium Uupwj9674-21-23 06:34:00* Test Item Value Reference Range Interpretation Comments Potassium Level (test code = 2823-3) 3.5 3.5-5.1 [facility] McAllenChloride Otadh0083-71-97 06:34:00* Test Item Value Reference Range Interpretation Comments Chloride Level (test code = 2075-0) 100 98-107 [facility] McAllenCarbon Dioxide Mvulp4292-88-90 06:34:00* Test Item Value Reference Range Interpretation Comments Carbon Dioxide Level (test code = 2028-9) 22 22-29 [facility] McAllenAnion Fmi8054-91-36 06:34:00* Test Item Value Reference Range Interpretation Comments Anion Gap (test code = 90999-0) 12.5 8-16 [facility]AllenBlood Urea Ocwsuswh0089-50-54 06:34:00* Test Item Value Reference Range Interpretation Comments Blood Urea Nitrogen (test code = 3094-0) 20 7-26 [facility] McAllenCreatinine2019-01-17 06:34:00* Test Item Value Reference Range Interpretation Comments Creatinine (test code = 2160-0) 2.63 0.72-1.25 H [facility] McAllenBUN/Creatinine Vxshb7134-38-17 06:34:00* Test Item Value Reference Range Interpretation Comments BUN/Creatinine Ratio (test code = 3097-3) 8 - [facility] McAllenEstimat Glomerular Filtration Rate 2018-03-05 06:34:00* Test Item Value Reference Range Interpretation Comments Estimat Glomerular Filtration Rate (test code = 155062757) 27 >60 L Ranges were taken from the National Kidney Disease Education Program and the [facility] literature.Reference ranges:60 or greater: Yiibaf25-26 ( for 3 consecutive months): Chronic kidney disease 15 or less: Kidney failureSouth [facility] Health System McAllenGlucose Hhlvq0446-45-84 06:34:00* Test Item Value Reference Range Interpretation Comments Glucose Level (test code = AHV1694) 136 74-118 H [facility] McAllenCalcium Kzuex9718-62-19 06:34:00* Test Item Value Reference Range Interpretation Comments Calcium Level (test code = 02436-3) 9.1 8.4-10.2 [facility] McAllenUrine FLI6018-43-35 18:13:00* Test Item Value Reference Range Interpretation Comments Urine WBC (test code = 5821-4) NONE 0-5 [facility] McAllenUrine FFF3452-33-75 18:13:00* Test Item Value Reference Range Interpretation Comments Urine RBC (test code = 60109-7) NONE 0-5 [facility]AllenUrine Brltnsse5245-13-82 18:13:00* Test Item Value Reference Range Interpretation Comments Urine Bacteria (test code = 86959-5) NONE NONE [facility]AllenUrine Epithelial Azymu6700-60-70 18:13:00 * Test Item Value Reference Range Interpretation Comments Urine Epithelial Cells (test code = 87056-4) FEW NONE [facility]AllenUrine Amorphous Bhztuipa2413-63-66 18:13:00* Test Item Value Reference Range Interpretation Comments Urine Amorphous Sediment (test code = 8246-1) MODERATE FEW H [facility]AllenUrine Amorphous Fmndysvs5241-06-86 18:13:00* Test Item Value Reference Range Interpretation Comments Urine Amorphous Sediment (test code = 8246-1) MODERATE FEW H [facility] McAllenUrine Haysc4302-57-33 17:53:00* Test Item Value Reference Range Interpretation Comments Urine Color (test code = 5778-6) YELLOW YELLOW [facility]AllenUrine Tbqcfvf0599-41-43 17:53:00* Test Item Value Reference Range Interpretation Comments Urine Clarity (test code = 26557-2) SL CLOUDY CLEAR H [facility] McAllenUrine Specific Ttsjaoi7027-29-60 17:53:00 * Test Item Value Reference Range Interpretation Comments Urine Specific [place] (test code = 5811-5) 1.020 1.010-1.02 5 [facility]AllenUrine dD2361-74-29 17:53:00* Test Item Value Reference Range Interpretation Comments Urine pH (test code = 49518-5) 6 5-7 [facility]AllenUrine Leukocyte Poydmtvl3000-29-05 17:53:00* Test Item Value Reference Range Interpretation Comments Urine Leukocyte Esterase (test code = 5799-2) NEGATIVE NEGATIVE [facility]AllenUrine Hrfnvtw0925-30-63 17:53:00* Test Item Value Reference Range Interpretation Comments Urine Nitrite (test code = 82316-5) NEGATIVE NEGATIVE [facility]AllenUrine Lezvhwp9093-07-83 17:53:00* Test Item Value Reference Range Interpretation Comments Urine Protein (test code = 5804-0) 2+ NEGATIVE H [facility]AllenUrine Glucose (UA)2018-03-03 17:53:00* Test Item Value Reference Range Interpretation Comments Urine Glucose (UA) (test code = 2349-9) 1+ NEGATIVE H [facility]AllenUrine Suwdymr9373-57-19 17:53:00* Test Item Value Reference Range Interpretation Comments Urine Ketones (test code = 78461-9) NEGATIVE NEGATIVE [facility] Xtqbcjeznolr6268-99-45 17:53:00* Test Item Value Reference Range Interpretation Comments Urine Urobilinogen (test code = 56977-8) 0.2 0.2-1 [facility]AllenUrine Rcchzkyzc4861-97-47 17:53:00* Test Item Value Reference Range Interpretation Comments Urine Bilirubin (test code = 1978-6) NEGATIVE NEGATIVE [facility] Yyzjj3542-15-22 17:53:00* Test Item Value Reference Range Interpretation Comments Urine Blood (test code = 55401-1) TRACE NEGATIVE H [facility] Opiates Qvasmc5495-75-97 17:52:00* Test Item Value Reference Range Interpretation Comments Urine Opiates Screen (test code = 57696-3) POSITIVE NEGATIVE H ALL TESTS PERFORMED MANUALLY ON [employer] TOX/SEE TEST This test provides only a sc reen. Positive results should be repeated by a confirmatory test.[facility] Barbiturates Piuduz1389-80-42 17:52:00* Test Item Value Reference Range Interpretation Comments Urine Barbiturates Screen (test code = 769886552) NEGATIVE NEGA TIVE [facility]AllenU[facility] Phencyclidine Yocfyk2549-15-79 17:52:00* Test Item Value Reference Range Interpretation Comments Urine Phencyclidine Screen (test code = 97585-3) NEGATIVE NEGAT JEZ [facility]AllenU[facility] Amphetamines Ndosde9918-65-28 17:52:00* Test Item Value Reference Range Interpretation Comments Urine Amphetamines Screen (test code = 46624-9) NEGATIVE NEGATI VE [facility]AllenU[facility] Methamphetamines Jtczwo3643-38-15 17:52:00* Test Item Value Reference Range Interpretation Comments Urine Methamphetamines Screen (test code = Urine Metha mphetamines Screen) NEGATIVE NEGATIVE [facility] Benzodiazepines Mwyvgm7895-35-00 17:52:00* Test Item Value Reference Range Interpretation Comments Urine Benzodiazepines Screen (test code = 20574-4) NEGATIVE NEG ATIVE [facility]AllenU[facility] Cocaine Yiwzrt8543-99-15 17:52:00* Test Item Value Reference Range Interpretation Comments Urine Cocaine Screen (test code = 3398-5) NEGATIVE NEGATIVE [facility]AllenU[facility] Cannabinoids Urivmh5271-63-96 17:52:00* Test Item Value Reference Range Interpretation Comments Urine Cannabinoids Screen (test code = 99937-4) NEGATIVE NEGATI VE THESE RESULTS ARE FOR MEDICAL TREATMENT ONLYTHIS REPORT CONTAINS UNCONFIR MED SCREENING RESULTS*POSITIVE RESULTS WILL BE CONFIRMED BY REFERENCE LAB UPON R EQUEST CUT-OFFDRUG CLASS CONCENTRATION ng/mLAmphetamines 1000Methamphetamines 1000Cocaine 300Opiate 300Phencyc lidine 25Cannabinoid 50Barbiturates 300Benzodiazepine 300Methadone 300[facility]AllenU[facility] Methadone Lwwhqs0098-71-52 17:52:00* Test Item Value Reference Range Interpretation Comments Urine Methadone Screen (test code = 66154-1) NEGATIVE NEGATIVE THESE RESULTS ARE FOR MEDICAL TREATMENT ONLYTHIS REPORT CONTAINS UNCONFIR MED SCREENING RESULTS*POSITIVE RESULTS WILL BE CONFIRMED BY REFERENCE LAB UPON R EQUEST CUT-OFFDRUG CLASS CONCENTRATION ng/mLAmphetamines 1000Methamphetamines 1000Cocaine Metabolite 300Opiate 300Phencyc lidine 25Cannabinoid 50Barbiturates 300Benzodiazepine 300Methadone 300[facility]AllenU[facility] Opiates Eoqccw1132-05-10 17:52:00* Test Item Value Reference Range Interpretation Comments Urine Opiates Screen (test code = 97097-4) POSITIVE NEGATIVE H ALL TESTS PERFORMED MANUALLY ON [employer] TOX/SEE TEST This test provides only a sc reen. Positive results should be repeated by a confirmatory test.[facility]Allen[facility] Barbiturates Kntvxd7043-77-00 17:52:00* Test Item Value Reference Range Interpretation Comments Urine Barbiturates Screen (test code = 223845433) NEGATIVE NEGA TIVE [facility]AllenU[facility] Phencyclidine Gcdmrl2949-05-23 17:52:00* Test Item Value Reference Range Interpretation Comments Urine Phencyclidine Screen (test code = 38757-7) NEGATIVE NEGAT JEZ [facility]AllenU[facility] Amphetamines Phrgli5145-00-99 17:52:00* Test Item Value Reference Range Interpretation Comments Urine Amphetamines Screen (test code = 80947-5) NEGATIVE NEGATI VE [facility] Methamphetamines Zmfqih7390-88-44 17:52:00* Test Item Value Reference Range Interpretation Comments Urine Methamphetamines Screen (test code = Urine Metha mphetamines Screen) NEGATIVE NEGATIVE [facility] Benzodiazepines Nbdmov0760-96-86 17:52:00* Test Item Value Reference Range Interpretation Comments Urine Benzodiazepines Screen (test code = 06179-9) NEGATIVE NEG ATIVE [facility]AllenU[facility] Cocaine Keqhgr6857-19-72 17:52:00* Test Item Value Reference Range Interpretation Comments Urine Cocaine Screen (test code = 3398-5) NEGATIVE NEGATIVE [facility]AllenUrine Cannabinoids Nzpavz1324-27-02 17:52:00* Test Item Value Reference Range Interpretation Comments Urine Cannabinoids Screen (test code = 03499-5) NEGATIVE NEGATI VE THESE RESULTS ARE FOR MEDICAL TREATMENT ONLYTHIS REPORT CONTAINS UNCONFIR MED SCREENING RESULTS*POSITIVE RESULTS WILL BE CONFIRMED BY REFERENCE LAB UPON R EQUEST CUT-OFFDRUG CLASS CONCENTRATION ng/mLAmphetamines 1000Methamphetamines 1000Cocaine 300Opiate 300Phencyc lidine 25Cannabinoid 50Barbiturates 300Benzodiazepine 300Methadone 300[facility] LakeUrine Methadone Msnvkp5360-13-65 17:52:00* Test Item Value Reference Range Interpretation Comments Urine Methadone Screen (test code = 04053-9) NEGATIVE NEGATIVE THESE RESULTS ARE FOR MEDICAL TREATMENT ONLYTHIS REPORT CONTAINS UNCONFIR MED SCREENING RESULTS*POSITIVE RESULTS WILL BE CONFIRMED BY REFERENCE LAB UPON R EQUEST CUT-OFFDRUG CLASS CONCENTRATION ng/mLAmphetamines 1000Methamphetamines 1000Cocaine Metabolite 300Opiate 300Phencyc lidine 25Cannabinoid 50Barbiturates 300Benzodiazepine 300Methadone 300[facility] LakeInfluenza Virus Types A,B Twlpxkt9813-78-52 15:59:00* Test Item Value Reference Range Interpretation Comments Influenza Virus Types A,B Antigen (test code = 90949-5) NEGATIVE NEGATIVE [facility]AllenInfluenza Virus Types A,B Antigen 2018-03-03 15:59:00* Test Item Value Reference Range Interpretation Comments Influenza Virus Types A,B Antigen (test code = 43016-3) NEGATIVE NEGATIVE [facility]AllenFr Gmkdeziyb3996-63-78 15:10:00* Test Item Value Reference Range Interpretation Comments Free Thyroxine (test code = 3024-7) 0.88 0.9-1.8 L [facility] McAllenThyroid Stimulating Hormone (TSH) 2018-03-03 15:10:00* Test Item Value Reference Range Interpretation Comments Thyroid Stimulating Hormone (TSH) (test code = 88802-7) 1.701 0.350-4.940 [facility]AllenFree Rtbymijdi2137-98-16 15:10:00* Test Item Value Reference Range Interpretation Comments Free Thyroxine (test code = 3024-7) 0.88 0.9-1.8 L [facility] McAllenThyroid Stimulating Hormone (TSH) 2018-03-03 15:10:00* Test Item Value Reference Range Interpretation Comments Thyroid Stimulating Hormone (TSH) (test code = 65103-4) 1.701 0.350-4.940 [facility]AllenHemoglobin A1c Qxhexot6862-84-15 14:50:00 * Test Item Value Reference Range Interpretation Comments Hemoglobin A1c Percent (test code = Hemoglobin A1c Percent) 7.9 4.0-7.0 H [facility] McAllenHemoglobin A1c Ehjxjgg2873-50-99 14:50:00 * Test Item Value Reference Range Interpretation Comments Hemoglobin A1c Percent (test code = Hemoglobin A1c Percent) 7.9 4.0-7.0 H [facility] McAllenDifferential Total Cells Counted 2018-03-03 13:34:00* Test Item Value Reference Range Interpretation Comments Differential Total Cells Counted (test code = Differen tial Total Cells Counted) 100 [facility] McAllenNeutrophils % (Manual)2018-03-03 13:34:00 * Test Item Value Reference Range Interpretation Comments Neutrophils % (Manual) (test code = 58694-0) 79 40-74 H [facility] McAllenBand Neutrophils %2018-03-03 13:34:00* Test Item Value Reference Range Interpretation Comments Band Neutrophils % (test code = 764-1) 5 [facility]AllenLymphocytes % (Manual)2018-03-03 13:34:00 * Test Item Value Reference Range Interpretation Comments Lymphocytes % (Manual) (test code = 737-7) 8 19-48 L [facility]AllenMonocytes % (Manual)2018-03-03 13:34:00* Test Item Value Reference Range Interpretation Comments Monocytes % (Manual) (test code = 744-3) 6 3.4-9.0 [facility]AllenEosinophils % (Manual)2018-03-03 13:34:00 * Test Item Value Reference Range Interpretation Comments Eosinophils % (Manual) (test code = 714-6) 2 0-7 [facility] McAllenPlatelet Dgnpydjd6029-01-89 13:34:00* Test Item Value Reference Range Interpretation Comments Platelet Estimate (test code = 39279-2) ADEQUATE [facility] McAllenPlatelet Morphology Shaxxpx8163-56-87 13:34:00* Test Item Value Reference Range Interpretation Comments Platelet Morphology Comment (test code = 46213-4) FEW GIANT [facility] McAllenRed Cell Morphology Qoraokq9206-08-64 13:34:00* Test Item Value Reference Range Interpretation Comments Red Cell Morphology Comment (test code = 6742-1) NORMAL [facility] McAllenDifferential Total Cells Counted 2018-03-03 13:34:00* Test Item Value Reference Range Interpretation Comments Differential Total Cells Counted (test code = Differen tial Total Cells Counted) 100 [facility] McAllenNeutrophils % (Manual)2018-03-03 13:34:00 * Test Item Value Reference Range Interpretation Comments Neutrophils % (Manual) (test code = 74470-5) 79 40-74 H [facility]AllenBand Neutrophils %2018-03-03 13:34:00* Test Item Value Reference Range Interpretation Comments Band Neutrophils % (test code = 764-1) 5 [facility]AllenLymphocytes % (Manual)2018-03-03 13:34:00 * Test Item Value Reference Range Interpretation Comments Lymphocytes % (Manual) (test code = 737-7) 8 19-48 L [facility]AllenMonocytes % (Manual)2018-03-03 13:34:00* Test Item Value Reference Range Interpretation Comments Monocytes % (Manual) (test code = 744-3) 6 3.4-9.0 [facility]AllenEosinophils % (Manual)2018-03-03 13:34:00 * Test Item Value Reference Range Interpretation Comments Eosinophils % (Manual) (test code = 714-6) 2 0-7 [facility] McAllenPlatelet Mbcbhnem1522-61-04 13:34:00* Test Item Value Reference Range Interpretation Comments Platelet Estimate (test code = 97383-0) ADEQUATE [facility] McAllenPlatelet Morphology Xykwhmz7664-68-28 13:34:00* Test Item Value Reference Range Interpretation Comments Platelet Morphology Comment (test code = 53989-4) FEW GIANT [facility] McAllenRed Cell Morphology Nlrmyma0128-77-72 13:34:00* Test Item Value Reference Range Interpretation Comments Red Cell Morphology Comment (test code = 6742-1) NORMAL [facility] McAllenBedside Omxpane8823-05-85 11:58:00* Test Item Value Reference Range Interpretation Comments Bedside Glucose (test code = 88197-7) 183 70-120 H Meter ID: [id number] [facility] McAllenBlood Culture 2017-08-24 09:09:00* Test Item Value Reference Range Interpretation Comments Blood Culture (test code = 58108446) NO GROWTH AFTER 24 HOURS [facility] McAllenVancomycin Level Eyozrr9243-17-36 08:42:00* Test Item Value Reference Range Interpretation Comments Vancomycin Level Trough (test code = 4092-3) 22.1 5.0-10.0 HH Results called to NGUYEN LEWIS at 0841 on 08/24/17 by Brandy Motley. RB [place].[facility] McAllenDifferential Total Cells Koprtow2928-16-84 08:17:00* Test Item Value Reference Range Interpretation Comments Differential Total Cells Counted (test code = Scott tiamerlene Total Cells Counted) 100 [facility] McAllenNeutrophils % (Manual)2017-08-24 08:17:00 * Test Item Value Reference Range Interpretation Comments Neutrophils % (Manual) (test code = 25366-9) 77 40-74 H [facility] McAllenLymphocytes % (Manual)2017-08-24 08:17:00 * Test Item Value Reference Range Interpretation Comments Lymphocytes % (Manual) (test code = 737-7) 18 19-48 L [facility] McAllenMonocytes % (Manual)2017-08-24 08:17:00* Test Item Value Reference Range Interpretation Comments Monocytes % (Manual) (test code = 744-3) 5 3.4-9.0 [facility] McAllenPlatelet Cqhmlkxy8113-32-17 08:17:00* Test Item Value Reference Range Interpretation Comments Platelet Estimate (test code = 29682-9) ADEQUATE [facility] McAllenPlatelet Morphology Hzumuji7763-77-19 08:17:00* Test Item Value Reference Range Interpretation Comments Platelet Morphology Comment (test code = 98145-9) NORMAL [facility] McAllenRed Cell Morphology Sxcowgz2138-68-85 08:17:00* Test Item Value Reference Range Interpretation Comments Red Cell Morphology Comment (test code = 6742-1) NORMAL [facility]landodium Lchdt1625-87-60 06:18:00* Test Item Value Reference Range Interpretation Comments Sodium Level (test code = 2951-2) 139 136-145 [facility] McAllenPotassium Txmly3690-89-12 06:18:00* Test Item Value Reference Range Interpretation Comments Potassium Level (test code = 2823-3) 3.5 3.5-5.1 [facility] McAllenChloride Zytxk3922-45-56 06:18:00* Test Item Value Reference Range Interpretation Comments Chloride Level (test code = 2075-0) 107 98-107 [facility] McAllenCarbon Dioxide Wvzib6062-68-87 06:18:00* Test Item Value Reference Range Interpretation Comments Carbon Dioxide Level (test code = 2028-9) 23 22-29 [facility] McAllenAnion Bgf4987-28-88 06:18:00* Test Item Value Reference Range Interpretation Comments Anion Gap (test code = 90253-3) 12.5 8-16 [facility] McAllenBlood Urea Sfhzsfvp5891-85-52 06:18:00* Test Item Value Reference Range Interpretation Comments Blood Urea Nitrogen (test code = 3094-0) 16 7-26 [facility] McAllenCreatinine2018-07-08 06:18:00* Test Item Value Reference Range Interpretation Comments Creatinine (test code = 2160-0) 1.58 0.72-1.25 H [facility] McAllenBUN/Creatinine Lnztb0125-37-66 06:18:00* Test Item Value Reference Range Interpretation Comments BUN/Creatinine Ratio (test code = 3097-3) 10 6-25 [facility] McAllenEstimat Glomerular Filtration Rate 2017-08-24 06:18:00* Test Item Value Reference Range Interpretation Comments Estimat Glomerular Filtration Rate (test code = 22884-8) 49 >60 L Ranges were taken from the National Kidney Disease Education Program and the [facility] literature.Reference ranges:60 or greater: Vmqbaz62-62 ( for 3 consecutive months): Chronic kidney disease 15 or less: Kidney failureSouth [facility] Health System McAllenGlucose Ixumo3318-69-69 06:18:00* Test Item Value Reference Range Interpretation Comments Glucose Level (test code = OLY8180) 171 74-118 H [facility] McAllenCalcium Blmwx2093-57-59 06:18:00* Test Item Value Reference Range Interpretation Comments Calcium Level (test code = 66369-6) 8.8 8.4-10.2 [facility] McAllenMagnesium Plnwt4320-65-12 06:18:00* Test Item Value Reference Range Interpretation Comments Magnesium Level (test code = 85312-9) 1.5 1.3-2.1 [facility] Rilakdkan2457-10-15 06:18:00* Test Item Value Reference Range Interpretation Comments Total Bilirubin (test code = 1975-2) 0.3 0.2-1.2 [facility] McAllenAspartate Amino Transf (AST/SGOT) 2017-08-24 06:18:00* Test Item Value Reference Range Interpretation Comments Aspartate Amino Transf (AST/SGOT) (test code = Aspartate Amino Transf (AST/SGOT)) 50 5-34 H [facility] McAllenAlanine Aminotransferase (ALT/SGPT) 2017-08-24 06:18:00* Test Item Value Reference Range Interpretation Comments Alanine Aminotransferase (ALT/SGPT) (test code = 1742-6) 91 0-55 H [facility] Kgvseel8215-66-24 06:18:00* Test Item Value Reference Range Interpretation Comments Total Protein (test code = 2885-2) 6.1 6.5-8.1 L [facility] McAllenAlbumin2018-07-08 06:18:00* Test Item Value Reference Range Interpretation Comments Albumin (test code = 1751-7) 2.2 3.5-5.0 L [facility] McAllenGlobulin2018-07-08 06:18:00* Test Item Value Reference Range Interpretation Comments Globulin (test code = 40587-1) 3.9 2.3-3.5 H [facility] McAllenAlbumin/Globulin Uzuex5732-32-99 06:18:00 * Test Item Value Reference Range Interpretation Comments Albumin/Globulin Ratio (test code = 1759-0) 0.6 0.8-2.0 L [facility] McAllenAlkaline Hdrigrlfqna8168-25-84 06:18:00* Test Item Value Reference Range Interpretation Comments Alkaline Phosphatase (test code = 6768-6) 102 40-150 [facility] McAllenMagnesium Lkxlw2321-85-96 06:18:00* Test Item Value Reference Range Interpretation Comments Magnesium Level (test code = 21194-1) 1.5 1.3-2.1 [facility] Nwawpdnjd5180-00-79 06:18:00* Test Item Value Reference Range Interpretation Comments Total Bilirubin (test code = 1975-2) 0.3 0.2-1.2 [facility] McAllenAspartate Amino Transf (AST/SGOT) 2017-08-24 06:18:00* Test Item Value Reference Range Interpretation Comments Aspartate Amino Transf (AST/SGOT) (test code = Aspartate Amino Transf (AST/SGOT)) 50 5-34 H [facility] McAllenAlanine Aminotransferase (ALT/SGPT) 2017-08-24 06:18:00* Test Item Value Reference Range Interpretation Comments Alanine Aminotransferase (ALT/SGPT) (test code = 1742-6) 91 0-55 H [facility] McAllenTotal Gmyrgcc6188-25-82 06:18:00* Test Item Value Reference Range Interpretation Comments Total Protein (test code = 2885-2) 6.1 6.5-8.1 L [facility] McAllenAlbumin2018-07-08 06:18:00* Test Item Value Reference Range Interpretation Comments Albumin (test code = 1751-7) 2.2 3.5-5.0 L [facility] McAllenGlobulin2018-07-08 06:18:00* Test Item Value Reference Range Interpretation Comments Globulin (test code = 77054-5) 3.9 2.3-3.5 H [facility] McAllenAlbumin/Globulin Mosea1372-55-28 06:18:00 * Test Item Value Reference Range Interpretation Comments Albumin/Globulin Ratio (test code = 1759-0) 0.6 0.8-2.0 L [facility] McAllenAlkaline Jjqvtdghkev4387-61-96 06:18:00* Test Item Value Reference Range Interpretation Comments Alkaline Phosphatase (test code = 6768-6) 102 40-150 [facility] McAllenMagnesium Rcfxq2219-89-87 06:18:00* Test Item Value Reference Range Interpretation Comments Magnesium Level (test code = 96018-1) 1.5 1.3-2.1 [facility] McAllenWhite Blood Nccby3337-98-99 05:51:00* Test Item Value Reference Range Interpretation Comments White Blood Count (test code = 6690-2) 7.75 4.8-10.8 [facility] McAllenRed Blood Lfteo6463-26-41 05:51:00* Test Item Value Reference Range Interpretation Comments Red Blood Count (test code = 789-8) 3.53 4.3-5.7 L [facility] McAllenHemoglobin2018-07-08 05:51:00* Test Item Value Reference Range Interpretation Comments Hemoglobin (test code = 89309-9) 10.8 14.0-18.0 L [facility] McAllenHematocrit2018-07-08 05:51:00* Test Item Value Reference Range Interpretation Comments Hematocrit (test code = 4544-3) 30.9 38.2-49.6 L [facility] McAllenMean Corpuscular Hohxru2108-80-89 05:51:00* Test Item Value Reference Range Interpretation Comments Mean Corpuscular Volume (test code = 787-2) 87.5 81-99 [facility] McAllenMean Corpuscular Kmectjhcuu2547-29-31 05:51:00* Test Item Value Reference Range Interpretation Comments Mean Corpuscular Hemoglobin (test code = 785-6) 30.6 28-32 [facility] McAllenMean Corpuscular Hemoglobin Concent 2017-08-24 05:51:00* Test Item Value Reference Range Interpretation Comments Mean Corpuscular Hemoglobin Concent (test code = 786-4) 35.0 31-35 [facility] McAllenRed Cell Distribution Oryns6814-91-38 05:51:00* Test Item Value Reference Range Interpretation Comments Red Cell Distribution Width (test code = 67320-2) 13.2 11.7 -14.4 [facility] McAllenPlatelet Exgle4166-73-43 05:51:00* Test Item Value Reference Range Interpretation Comments Platelet Count (test code = 777-3) 218 140-360 [facility] McAllenNeutrophils (%) (Auto)2017-08-24 05:51:00 * Test Item Value Reference Range Interpretation Comments Neutrophils (%) (Auto) (test code = 81015-8) 66.9 38.7-80.0 [facility] McAllenLymphocytes (%) (Auto)2017-08-24 05:51:00 * Test Item Value Reference Range Interpretation Comments Lymphocytes (%) (Auto) (test code = 736-9) 18.7 18.0-39.1 [facility] McAllenMonocytes (%) (Auto)2017-08-24 05:51:00* Test Item Value Reference Range Interpretation Comments Monocytes (%) (Auto) (test code = 5905-5) 6.5 4.4-11.3 [facility]AllenEosinophils (%) (Auto)2017-08-24 05:51:00 * Test Item Value Reference Range Interpretation Comments Eosinophils (%) (Auto) (test code = 713-8) 3.0 0.0-6.0 [facility] McAllenBasophils (%) (Auto)2017-08-24 05:51:00* Test Item Value Reference Range Interpretation Comments Basophils (%) (Auto) (test code = 706-2) 1.0 0.0-1.0 [facility] McAllenIM GRANULOCYTES %2017-08-24 05:51:00* Test Item Value Reference Range Interpretation Comments IM GRANULOCYTES % (test code = IM GRANULOCYTES %) 3.9 0.0- 1.0 H [facility] McAllenNeutrophils # (Auto)2017-08-24 05:51:00* Test Item Value Reference Range Interpretation Comments Neutrophils # (Auto) (test code = 751-8) 5.2 2.1-6.9 [facility] McAllenLymphocytes # (Auto)2017-08-24 05:51:00* Test Item Value Reference Range Interpretation Comments Lymphocytes # (Auto) (test code = 06637-3) 1.5 1.0-3.2 [facility]AllenMonocytes # (Auto)2017-08-24 05:51:00* Test Item Value Reference Range Interpretation Comments Monocytes # (Auto) (test code = 742-7) 0.5 0.2-0.8 [facility]AllenEosinophils # (Auto)2017-08-24 05:51:00* Test Item Value Reference Range Interpretation Comments Eosinophils # (Auto) (test code = 711-2) 0.2 0.0-0.4 [facility]AllenBasophils # (Auto)2017-08-24 05:51:00* Test Item Value Reference Range Interpretation Comments Basophils # (Auto) (test code = 704-7) 0.1 0.0-0.1 [facility] McAllenAbsolute Immature Granulocyte (auto 2017-08-24 05:51:00* Test Item Value Reference Range Interpretation Comments Absolute Immature Granulocyte (auto (andi t code = Absolute Immature Granulocyte (auto) 0.30 0-0.1 H [facility] McAllenCHEST XRAY LINE TBSZWCOBU1195-77-60 11:35:00 [place] [address] Patient Name: GABRIELA MERCER MR #: [id number] : 1980 Age/Sex: 37/M Req #: [id number] Adm Physician: PRINCE HALE MD Ordered by: LORENZO FITZGERALD MD Report #: [id number] Location: [facility] Room/Bed: [place] [address] Procedure: DX/ CHEST XRAY LINE PLACEMENT Exam Date: 08/22/17 Exam T neri: 1100 REPORT STATUS: Signed PROCEDURE: A single AP view of the ch est. COMPARISON: Chest radiograph 08/18/2017 INDICATIONS: PICC LINE PLACEMENT FINDINGS: Lines/tubes: Left upper extremity PICC with tip projecting over the cavoatrial junction. Lungs: The lungs are well inflated and clear. There is no evidence of pneumonia or pulmonary edema. Pleura: There is no pleural effusion or pneumothorax. Heart and medias tinum: The heart and the mediastinum are unremarkable. Bones: No acute b corinne abnormality. IMPRESSION: 1. Left upper extremity PICC with tip pro jecting over the cavoatrial junction. 2. No acute cardiopulmonary diseas e. Dictated by: Donavon Granados M.D. on 08/22/2017 at 11:35 Elec tronically approved by: Donavon Granados M.D. on 08/22/2017 at 11:35 Dictated By: DONAVON GRANADOS MD 1135 Transcribed By: COLTEN on 08/22/17 1135 COPY TO: LORENZO FITZGERALD MD Creatine Kinase RR4454-64-44 07:00:00* Test Item Value Reference Range Interpretation Comments Creatine Kinase MB (test code = 39402-4) 0.40 0-5.0 [place] 03736018-07-03 07:00:00* Test Item Value Reference Range Interpretation Comments Troponin I (test code = JGP9717) 0.018 0-0.300 [facility] McAllenCreatine Kinase OG7446-11-32 07:00:00* Test Item Value Reference Range Interpretation Comments Creatine Kinase MB (test code = 82233-2) 0.40 0-5.0 [place] 03736018-07-03 07:00:00* Test Item Value Reference Range Interpretation Comments Troponin I (test code = RVS5848) 0.018 0-0.300 [facility] McAllenCreatine Kinase RA7307-29-83 07:00:00* Test Item Value Reference Range Interpretation Comments Creatine Kinase MB (test code = 07345-1) 0.40 0-5.0 [place] 03736018-07-03 07:00:00* Test Item Value Reference Range Interpretation Comments Troponin I (test code = LLY3660) 0.018 0-0.300 [facility] McAllenCreatine Jsytpf6036-97-53 06:53:00* Test Item Value Reference Range Interpretation Comments Creatine Kinase (test code = 2157-6) 225 30-200 H [facility] McAllenCreatine Kejxom4239-56-41 06:53:00* Test Item Value Reference Range Interpretation Comments Creatine Kinase (test code = 2157-6) 225 30-200 H [facility] McAllenCreatine Kyqsgt3043-36-54 06:53:00* Test Item Value Reference Range Interpretation Comments Creatine Kinase (test code = 2157-6) 225 30-200 H [facility] McAllenFree Vbghkqgxe2704-04-62 14:47:00* Test Item Value Reference Range Interpretation Comments Free Thyroxine (test code = 3024-7) 0.97 0.9-1.8 [facility] McAllenThyroid Stimulating Hormone (TSH) 2017-08-18 14:47:00* Test Item Value Reference Range Interpretation Comments Thyroid Stimulating Hormone (TSH) (test code = 92163-8) 1.782 0.350-4.940 [facility] McAllenHemoglobin A1c Ekttiuv4003-08-04 14:19:00 * Test Item Value Reference Range Interpretation Comments Hemoglobin A1c Percent (test code = Hemoglobin A1c Percent) 9.2 4.0-7.0 H [facility] McAllenCT ABDOMEN/PELVIS O0153-91-10 07:05:00 [facility] [address] [place] [address] Patient Name: GABRIELA MERCER MR #: [id number] : 0 1980 Age/Sex: 37/M Req #: [id number] Adm Physician: Ordered by: KRISHAN MANCILLA MD Report #: [id number] Location: Room/ d: Procedure: [id number] CT/CT ABDOMEN/PELVIS W Exam Date: 08/18/17 Exam Time: 0635 REPORT STATUS: S igned EXAM: CT Abdomen and Pelvis WITH contrast INDICATION: Abdominal franky n COMPARISON: None. TECHNIQUE: Abdomen and pelvis were scanned utilizing a m ulEnjecttector helical scanner from the lung base to the pubic symphysis after a dministration of IV contrast. Coronal and sagittal reformations were obtained. Routine protocol was performed. Scan was performed when during portal venous phase. IV CONTRAST: 100 mL of Isovue-[address]: Water RADIATION DOSE: Total DLP: 812.15 mGy*cm Estimated effective dose: (DLP x 0.015 x size factor) mSv COMPLICA TIONS: None FINDINGS: LINES and TUBES: None. LOWER THORAX: Unrem arkable HEPATOBILIARY: The liver is diffuse hypodense compared to the splee n, consistent with diffuse hepatic diffuse hepatic steatosis. No focal hepati c lesions. No biliary ductal dilation. GALLBLADDER: No radio-opaque ston es or sludge. No wall thickening. SPLEEN: No splenomegaly. PANCREAS: No focal masses or ductal dilatation. ADRENALS: No adrenal nodules KIDNEYS/URETERS: Kidneys enhance symmetrically. No hydronephrosis. No cystic or solid mass lesions. No stones. GI TRACT: No abnormal distention, wall thickening, or evidence of bowel obstruction. Appendix is normal. PELVIC ORGANS/BLADDER: Unremarkable. LYMPH NODES: No lymphadenopathy. VESSELS: Unremarkable. PERITONEUM / RETROPERITONEUM: No free air or fluid. BONES: Unremarkable. SOFT TISSUES: Umbilical fat-containing hernia best seen on series 2, image 52 IMPRESSION: 1. No evidence of acute intra-abdominal or pelvic abnormality. 2. Fat-containing umbilical hernia. 3. Diffuse hepatic steatosis. Signed by: Jonathan Lopez 08/18/2017 7:07 AM Dictated By: ANNIE BLANTON MD Electronically S igned By: ANNIE BLANTON MD on 08/18/17706 Transcribed By: GERARD on 0 08/18/17706 COPY TO: KRISHAN MANCILLA MD Urine Inbgj9796-77-11 05:23:00* Test Item Value Reference Range Interpretation Comments Urine Color (test code = 5778-6) YELLOW YELLOW [facility] McAllenUrine Gtrvpqv0489-71-86 05:23:00* Test Item Value Reference Range Interpretation Comments Urine Clarity (test code = 94278-2) CLEAR CLEAR [facility] McAllenUrine Specific Ulhdoxs6907-03-50 05:23:00 * Test Item Value Reference Range Interpretation Comments Urine Specific [place] (test code = 5811-5) 1.015 1.010-1.02 5 [facility] McAllenUrine qN0951-90-27 05:23:00* Test Item Value Reference Range Interpretation Comments Urine pH (test code = 63739-2) 7 5-7 [facility] Leukocyte Zajfnkkq9773-56-20 05:23:00* Test Item Value Reference Range Interpretation Comments Urine Leukocyte Esterase (test code = 5799-2) NEGATIVE NEGATIVE [facility] Jhexrhp6394-05-01 05:23:00* Test Item Value Reference Range Interpretation Comments Urine Nitrite (test code = 96623-3) NEGATIVE [facility]IVE [facility] Cegldet9162-29-28 05:23:00* Test Item Value Reference Range Interpretation Comments Urine Protein (test code = 5804-0) 3+ NEGATIVE H [facility] Glucose (UA)2017-08-18 05:23:00* Test Item Value Reference Range Interpretation Comments Urine Glucose (UA) (test code = 2349-9) 3+ NEGATIVE [facility] Kgafaww5814-93-19 05:23:00* Test Item Value Reference Range Interpretation Comments Urine Ketones (test code = 97787-7) NEGATIVE NEGATIVE [facility] Bcwzogtkhepb7498-63-83 05:23:00* Test Item Value Reference Range Interpretation Comments Urine Urobilinogen (test code = 24651-6) 0.2 0.2-1 [facility] Wixjealiz9777-53-96 05:23:00* Test Item Value Reference Range Interpretation Comments Urine Bilirubin (test code = 1978-6) NEGATIVE NEGATIVE [facility] Rsvnn3204-26-72 05:23:00* Test Item Value Reference Range Interpretation Comments Urine Blood (test code = 93458-6) NEGATIVE NEGATIVE [facility] BMZ4653-81-06 05:23:00* Test Item Value Reference Range Interpretation Comments Urine WBC (test code = 5821-4) 0-5 0-5 [facility] QAP1029-58-43 05:23:00* Test Item Value Reference Range Interpretation Comments Urine RBC (test code = 53382-2) 0-5 0-5 [facility] Atebhqnd6314-34-20 05:23:00* Test Item Value Reference Range Interpretation Comments Urine Bacteria (test code = 10700-2) NONE NONE [facility] Epithelial Ctzor1960-39-94 05:23:00 * Test Item Value Reference Range Interpretation Comments Urine Epithelial Cells (test code = 59563-8) FEW NONE [facility]2017-08-18 05:17:00 [facility] [address] [address] Patient Name: GABRIELA MERCER MR #: [id number] : 1980 Age/Sex: 37/M Req #: [id number] Adm Physician: Ordered by: KRISHAN MANCILLA MD Report #: [id number] Location: ER Room/Bed: Procedure: [id number] DX/CHEST SINGLE (PORTABLE) E xam Date: 08/18/17 Exam Time: 0420 REPORT STATU S: Signed EXAMINATION: CHEST SINGLE (PORTABLE) INDICATION: Hyperglycemia COMPARISON: 01/20/2017 FINDINGS: TUBES and JACKSON ES: None. LUNGS: Lungs are well inflated. Lungs are clear. There is no evidence of pneumonia or pulmonary edema. PLEURA: No pleural effusion or pneumothorax. HEART AND MEDIASTINUM: The cardiomediastinal silhouette is unremarkable. BONES AND SOFT TISSUES: No acute osseous lesion. Soft tissues are unremarkable. UPPER ABDOMEN: No free air under the diaphragm. IMPRESSION: No acute thoracic abnormality. Signed by: Dr. Krystina Smith M.D. on 08/18/2017 5:18 AM Dictated By: ANNIE BLANTON MD 7 Transcribed By: GERARD on 08/18/17517 COPY TO: KRISHAN MANCILLA MD Arterial Blood wS4163-03-12 04:38:00* Test Item Value Reference Range Interpretation Comments Arterial Blood pH (test code = 2744-1) 7.45 7.31-7.41 [facility] Partial Pressure CO2 2017-08-18 04:38:00* Test Item Value Reference Range Interpretation Comments Arterial Blood Partial Pressure CO2 (test code = 2018-) 33 41-51 L [facility] Partial Pressure O2 2017-08-18 04:38:00* Test Item Value Reference Range Interpretation Comments Arterial Blood Partial Pressure O2 (test code = 2018-8) 64 80-105 L [facility] MHE63672-85-00 04:38:00* Test Item Value Reference Range Interpretation Comments Arterial Blood HCO3 (test code = 1960-4) 23 23-28 [facility] Base Qmhwru8335-74-52 04:38:00* Test Item Value Reference Range Interpretation Comments Arterial Blood Base Excess (test code = 1925-7) -1.0 -2-3 [facility] Oxygen Saturation 2017-08-18 04:38:00* Test Item Value Reference Range Interpretation Comments Arterial Blood Oxygen Saturation (test code = 2708-6) 93.0 95-98 L [facility]AllenFiO22018-07-02 04:38:00* Test Item Value Reference Range Interpretation Comments FiO2 (test code = FiO2) 21 [facility] [id number] 04:38:00* Test Item Value Reference Range Interpretation Comments Arterial Blood pH (test code = 2744-1) 7.45 7.31-7.41 H [facility] Partial Pressure CO2 2017-08-18 04:38:00* Test Item Value Reference Range Interpretation Comments Arterial Blood Partial Pressure CO2 (test code = 2018-09) 33 41-51 L [facility] Partial Pressure O2 2017-08-18 04:38:00* Test Item Value Reference Range Interpretation Comments Arterial Blood Partial Pressure O2 (test code = 2018-09) 64 80-105 L [facility] Blood RAT07971-31-25 04:38:00* Test Item Value Reference Range Interpretation Comments Arterial Blood HCO3 (test code = 1960-4) 23 23-28 [facility] Tjoufx0867-34-19 04:38:00* Test Item Value Reference Range Interpretation Comments Arterial Blood Base Excess (test code = 1925-7) -1.0 -2-3 [facility] Oxygen Saturation 2017-08-18 04:38:00* Test Item Value Reference Range Interpretation Comments Arterial Blood Oxygen Saturation (test code = 2708-6) 93.0 95-98 L [facility]AllenFiO22018-07-02 04:38:00* Test Item Value Reference Range Interpretation Comments FiO2 (test code = FiO2) 21 [facility] Blood [id number] 04:38:00* Test Item Value Reference Range Interpretation Comments Arterial Blood pH (test code = 2744-1) 7.45 7.31-7.41 H [facility] Partial Pressure CO2 2017-08-18 04:38:00* Test Item Value Reference Range Interpretation Comments Arterial Blood Partial Pressure CO2 (test code = 2018-09) 33 41-51 L [facility] Partial Pressure O2 2017-08-18 04:38:00* Test Item Value Reference Range Interpretation Comments Arterial Blood Partial Pressure O2 (test code = 2018-09) 64 80-105 L [facility] Blood [id number] 04:38:00* Test Item Value Reference Range Interpretation Comments Arterial Blood HCO3 (test code = 1960-4) 23 23-28 [facility] Base Tcvere3114-57-30 04:38:00* Test Item Value Reference Range Interpretation Comments Arterial Blood Base Excess (test code = 1925-7) -1.0 -2-3 [facility] Oxygen Saturation 2017-08-18 04:38:00* Test Item Value Reference Range Interpretation Comments Arterial Blood Oxygen Saturation (test code = 2708-6) 93.0 95-98 L [facility]AllenFiO22018-07-02 04:38:00* Test Item Value Reference Range Interpretation Comments FiO2 (test code = FiO2) 21 [facility]AllenLipase2018-07-02 04:32:00* Test Item Value Reference Range Interpretation Comments Lipase (test code = 3040-3) 105 8-78 H [facility]AllenLipase2018-07-02 04:32:00* Test Item Value Reference Range Interpretation Comments Lipase (test code = 3040-3) 105 8-78 H [facility]AllenLipase2018-07-02 04:32:00* Test Item Value Reference Range Interpretation Comments Lipase (test code = 3040-3) 105 8-78 H [facility] McAllenLactic Acid Byabu5977-36-27 04:21:00* Test Item Value Reference Range Interpretation Comments Lactic Acid Level (test code = Lactic Acid Level) 28.7 4.5- 19.8 H [facility] McAllenD-Dimer Quantitative (PE/DVT)2017-01-20 08:09:00* Test Item Value Reference Range Interpretation Comments D-Dimer Quantitative (PE/DVT) (test code = 88010-9) 169 0- 400 The Triage D-Dimer Test has not been evaluated for use as sole evidence for the presence or absence of PE or DVT. As with all in vitro diagnostic tests, the te st results should be interpreted by the physician in conjunction with clinical f indings and other test results.Test results are reported in D-dimer units.[facility] McAllenProthrombin Xvaf2070-36-79 06:58:00* Test Item Value Reference Range Interpretation Comments Prothrombin Time (test code = 5902-2) 12.9 11.9-14.5 [facility]AllenProthromb Time International Ratio 2017-01-20 06:58:00* Test Item Value Reference Range Interpretation Comments Prothromb Time International Ratio (test code = 6301-6) 0.93 Oral Anticoagulant Therapy INR Values:1. Low Intensity Therapy 1.5 - 2.02 . Moderate Intensity Therapy 2.0 - 3.03. High Intensity Therapy(1) 2.5 - 3. 54. High Intensity Therapy(2) 3.0 - 4.05. Panic Value INR > 5.0 [facility] McAllenActivated Partial Thromboplast Time 2017-01-20 06:58:00* Test Item Value Reference Range Interpretation Comments Activated Partial Thromboplast Time (test code = 40379-3) 27.7 23.8-35.5 [facility] McAllenAmylase Dreei8253-82-73 06:57:00* Test Item Value Reference Range Interpretation Comments Amylase Level (test code = 1798-8) 86 25-125 [facility]AllenInfluenza Virus Types A,B Antigen 2017-01-20 06:56:00* Test Item Value Reference Range Interpretation Comments Influenza Virus Types A,B Antigen (test code = 98417-0) NEGATIVE NEGATIVE [facility] McAllenGroup A Streptococcus Uhhtvt6448-67-98 06:51:00* Test Item Value Reference Range Interpretation Comments Group A Streptococcus Screen (test code = 18799-5) NEGATIVE NEG ATIVE [facility]Allen[facility]ING[facility]) [place] [address] Patient Name: GABRIELA MERCER MR #: [id number] : 1980 Age/Sex: 36/M Req #: [id number] Adm Physician: Ordered by: JENNIFER JEFFREY MD Report #: [id number] Location: ER Room/Bed: Procedure: [id number] DX/CHEST SINGLE (PORTABLE) Exa m Date: 01/20/17 Exam Time: 0650 REPORT STATUS: Signed Single view chest January 20, 2017 Clinical history: Cough, fev er, and syncope Technique: AP view chest Comparison: None available. Fi ndings: The lungs are clear and symmetrically inflated. No pleural effusions. Cardiac size is normal for technique. Pulmonary vasculature is normal. The skeleton is grossly intact. Impression: No acute abnormality. This report was generated with voice-recognition technology. Errors in t ranscription can occur. Please interpret accordingly and contact a radiologist if there are any questions regarding the report. Signed by: Dr. Luisa cortes M.D. on 01/20/2017 7:21 AM Dictated By: LUISA CASEY MD [facility] Signed By: LUISA CASEY MD on 01/20/17720 Transcribed By: GERARD on 01/20/17720 COPY TO: JENNIFER JEFFREY MD CT BRAIN [place] [address] Patient Name: GABRIELA MERCER MR #: [id number] : 1980 Age/Sex: 36/M Req #: [id number] Adm Physician: Ordered by: JENNIFER JEFFREY MD Report #: [id number] Location: ER Room/Bed: Procedure: [id number] CT/CT BRAIN WO Exam Date: 06/03 Exam Time: 0650 REPORT STATUS: Signed E xamination: CT BRAIN WITHOUT CONTRAST History:Syncope. Fever. Headache. Cou gh. Comparison studies:None Technique: Axial images were obtained from the skull base to the vertex. Coronal and sagittal images reconstructed from t he axial data. Intravenous contrast: None Findings: Scalp: No abnorm alities. Bones: No fractures, blastic or lytic lesions. Brain sulci: Appr opriate for age. Ventricles: Normal in size and configuration. No hydrocephalu s. Extra-axial space: No abnormalities. Parenchyma: No abnormal d ensities. No masses, hemorrhage, acute or chronic vascular insults. Sell ar/suprasellar region: No abnormalities. Craniocervical junction: Patent isaias en magnum. No Chiari one malformation. Incidental findings: None. I mpression: No intracranial abnormalities. Signed by: Dr. Akosua jiménez M.D. on 01/20/2017 7:43 AM Dictated By: AKOSUA CHUNG MD 2 Transcr ibed By: GERARD on 01/20/17742 COPY TO: JENNIFER JEFFREY MD CT CERVICAL SPINE WO [place] [address] Patient Name: GABRIELA MERCER MR #: [id number] : 1980 Age/Sex: 36/M Req #: [id number] Adm Physician: PRINCE HALE MD Ordered by: JENNIFER JEFFREY MD Report #: [id number] Location: [facility] Room/Bed: [place] [address] Procedure: [id number] CT /CT CERVICAL SPINE WO Exam Date: 01/20/17 Exam Time: 0650 REPORT STATUS: Signed Study made available for interpretation on 01/30/2017 at 10:15 AM EXAMINATION: CT of the cervical spine HISTORY:Sy ncope, fever, headache COMPARISON:None available TECHNIQUE: Multidetector he lical axial images were obtained without contrast from the foramen magnum to T 1. The images were reconstructed using bone and soft tissue algorithms and we re viewed in axial, sagittal and coronal planes. FINDINGS: Alignment:Straightening of the cervical lordosis may be positional or related to muscle spasm.. Soft tissues: Normal. Vertebrae: Nor mal height and density. No acute fracture, infection or neoplasm. Intervertebral disk degenerative changes: Small disc osteophyte and mild arthr osis at at C6-7 without canal or foraminal stenosis. Otherwise no significant degenerative changes, canal or foraminal stenosis. IMPRESSION: No acut e cervical spine postraumatic abnormalities. Note: Acute postraumatic spina l cord, vascular or ligamentous injuries cannot be assessed by CT. Sig miles by: Dr. Sabino Patel M.D. on 01/20/2017 10:20 AM Dictated By: SABINO WIN MD 1020 Transcribed B y: GERARD on 01/20/17 1020 COPY TO: JENNIFER JEFFREY MD
--- NOTE | 2019-10-07 00:57 | Diagnostic Imaging Report ---
EXAMINATION: Head CT without contrast. HISTORY:Right facial droop. COMPARISON:CT brain from 01/20/2017. TECHNIQUE: Multidetector axial images were obtained from the foramen magnum to the vertex without contrast. The images were reconstructed using brain and bone algorithms. Thin section brain images were reformatted into coronal and sagittal planes. Dose modulation, iterative reconstruction, and/or weight based adjustment of the mA/kV was utilized to reduce the radiation dose to as low as reasonably achievable. Intravenous contrast: None IMAGE QUALITY: Acceptable. FINDINGS: Skull/scalp: No lytic or blastic. lesions. No surgical changes. Parenchyma: No abnormal density. No acute hemorrhage, mass or acute major vascular territorial infarct. Arteries: No density suggestive of thrombosis. Dural sinuses: No abnormal density suggestive of thrombosis. Ventricles: Unchanged mild compensated dilatation due to volume loss. No acute hydrocephalus. Extra-axial spaces: No abnormal density. Brain volume: Mild generalized cerebral volume loss, advanced for patient's given age. Craniocervical junction: No mass, Chiari malformation, or basilar invagination. Sella: No mass. Paranasal/mastoid sinuses: Imaged portions unremarkable. IMPRESSION: No acute intracranial abnormality. Signed by: Dr. Josephine Boyd M.D. on 10/07/2019 12:54 AM
[2019-10-07 01:14] VITALS: BP 166/97
== END 2019-10-07 01:19 | disposition home or self-care (01) ==
LOC: ER 00:30
DX: G51.0 Bell's palsy (principal); I12.9 Hypertensive chronic kidney disease with stage 1 through stage 4 chronic kidney disease, or unspecified chronic kidney disease; E11.22 Type 2 diabetes mellitus with diabetic chronic kidney disease; E78.5 Hyperlipidemia, unspecified
CPT/HCPCS: 70450; 99283

== ENCOUNTER 2020-02-08 06:52 | Emergency (ER) | payer MEDICARE, SELFPAY ==
[~2020-02-08] VITALS: Ht 165.1 cm; Wt 103.4 kg
[2020-02-08] MEDS ORDERED: ONDANSETRON HCL INJ 2MG/ML 2ML 2 MG/ML VIAL IV STA (06:53)
[2020-02-08] MEDS ORDERED: KETOROLAC TROMETHAMINE 30 MG/ML VIAL IV STA (06:53)
[2020-02-08] MEDS ORDERED: SODIUM CHLORIDE 0.9% 1000ML 1,000 ML IV STA (06:53)
[2020-02-08 07:22] LABS: BASOPHILS # (AUTO) 0.1 (0.0-0.1); BASOPHILS % 0.5 % (0.0-1.0); EOSINOPHILS # (AUTO) 0.2 (0.0-0.4); EOSINOPHILS % 1.8 % (0.0-6.0); HEMATOCRIT 32.6 % (38.2-49.6); HEMOGLOBIN 11.2 g/dL (14.0-18.0); LYMPHOCYTES # (AUTO) 1.9 (1.0-3.2); MEAN CORPUSCULAR HEMOGLOBIN 30.5 pg (28-32); MEAN CORPUSCULAR HGB CONC 34.4 g/dL (31-35); MEAN CORPUSCULAR VOLUME 88.8 fL (81-99); MONOCYTES # (AUTO) 0.9 (0.2-0.8); MONOCYTES % 6.5 % (4.4-11.3); NEUTROPHILS # (AUTO) 10.1 (2.1-6.9); NEUTROPHILS % 76.8 % (38.7-80.0); PLATELET COUNT 191 x10e3/uL (140-360); RED BLOOD COUNT 3.67 x10e6/uL (4.3-5.7); RED CELL DISTRIBUTION WIDTH 14.9 % (11.7-14.4)
[2020-02-08] MEDS ORDERED: SODIUM CHLORIDE 0.9% 50ML 50 ML ONE (07:37)
[2020-02-08] MEDS ORDERED: IOPAMIDOL 370 MG/ML 200 ML INFUS..BTL INJ ONE (07:38)
[2020-02-08 08:03] LABS: ALBUMIN 3.2 g/dL (3.5-5.0); ALBUMIN/GLOBULIN RATIO 1.2 (0.8-2.0); ANION GAP 21.6 mmol/L (8-16); CALCIUM 8.7 mg/dL (8.4-10.2); CREATININE, SERUM 14.92 mg/dL (0.72-1.25); POTASSIUM 4.6 mmol/L (3.5-5.1)
[2020-02-08] MEDS ORDERED: PIPER-TAZ 3.375 GM 50 ML IV STA (08:09)
[2020-02-08] MEDS ORDERED: CLONIDINE HCL 0.2 MG TAB PO ONE (08:15)
[2020-02-08 08:26] LABS: CREATINE KINASE MB 3.3 ng/mL (0-5.0)
[2020-02-08] MEDS ORDERED: ATORVASTATIN CA80 MG PO (09:05)
[2020-02-08] MEDS ORDERED: NEPHRO-VITE TABL1 EA PO (09:06)
[2020-02-08] MEDS ORDERED: HYDRALAZINE HCL25 MG PO (09:06)
[2020-02-08] MEDS ORDERED: METOPROLOL TART50 MG PO (09:07)
[2020-02-08] MEDS ORDERED: CIPRO500 MG PO (09:29)
[2020-02-08] MEDS ORDERED: FLAGYL500 MG PO (09:29)
[2020-02-08] MEDS ORDERED: ZOFRAN4 MG SL (09:29)
== END 2020-02-08 09:45 | disposition home or self-care (01) ==
LOC: ER 07:10
DX: K52.9 Noninfective gastroenteritis and colitis, unspecified (principal); R10.31 Right lower quadrant pain; I12.0 Hypertensive chronic kidney disease with stage 5 chronic kidney disease or end stage renal disease; E11.22 Type 2 diabetes mellitus with diabetic chronic kidney disease; N18.6 End stage renal disease; Z99.2 Dependence on renal dialysis; E78.5 Hyperlipidemia, unspecified
CPT/HCPCS: 36415; 71045; 74177; 80053; 82550; 82553; 83690; 84484; 85025; 99284; J1885; J2405; J2543; J7030; Q9967

== ENCOUNTER 2020-03-20 10:24 | Emergency (ER) | payer MEDICARE ==
[~2020-03-20] VITALS: Ht 165.1 cm; Wt 103.4 kg
[~2020-03-20 10:24] MED LIST changes: +ATORVASTATIN CA80 MG PO; +CIPRO500 MG PO; +FLAGYL500 MG PO; +HYDRALAZINE HCL25 MG PO; +METOPROLOL TART50 MG PO; +NEPHRO-VITE TABL1 EA PO; +ZOFRAN4 MG SL
[2020-03-20] MEDS ORDERED: CLONIDINE HCL 0.1 MG TAB PO NR (10:45)
[2020-03-20 10:53] LABS: BASOPHILS # (AUTO) 0.1 (0.0-0.1); BASOPHILS % 0.7 % (0.0-1.0); EOSINOPHILS # (AUTO) 0.3 (0.0-0.4); HEMATOCRIT 28.4 % (38.2-49.6); HEMOGLOBIN 9.3 g/dL (14.0-18.0); LYMPHOCYTES # (AUTO) 1.5 (1.0-3.2); LYMPHOCYTES % 14.4 % (18.0-39.1); MEAN CORPUSCULAR HEMOGLOBIN 29.2 pg (28-32); MEAN CORPUSCULAR HGB CONC 32.7 g/dL (31-35); MONOCYTES # (AUTO) 0.7 (0.2-0.8); MONOCYTES % 6.3 % (4.4-11.3); NEUTROPHILS # (AUTO) 7.9 (2.1-6.9); NEUTROPHILS % 74.8 % (38.7-80.0); PLATELET COUNT 214 x10e3/uL (140-360); RED BLOOD COUNT 3.19 x10e6/uL (4.3-5.7); RED CELL DISTRIBUTION WIDTH 14.6 % (11.7-14.4)
[2020-03-20] MEDS ORDERED: HYDRALAZINE HCL 20 MG/ML VIAL IV ONE (11:00)
[2020-03-20 11:12] LABS: INR 1.02
[2020-03-20 11:13] LABS: PARTIAL THROMBOPLASTIN TIME 29.8 seconds (23.8-35.5)
[2020-03-20 11:22] LABS: ALBUMIN 3.8 g/dL (3.5-5.0); ALBUMIN/GLOBULIN RATIO 1.2 (0.8-2.0); ANION GAP 21.9 mmol/L (8-16); CALCIUM 9.7 mg/dL (8.4-10.2); CREATININE, SERUM 11.74 mg/dL (0.72-1.25); POTASSIUM 3.9 mmol/L (3.5-5.1)
[2020-03-20 11:30] LABS: CREATINE KINASE MB 5.6 ng/mL (0-5.0)
[2020-03-20] MEDS ORDERED: HYDRALAZINE HCL 20 MG/ML VIAL ONE (14:23)
[2020-03-20] MEDS ORDERED: CLONIDINE HCL 0.1 MG TAB ONE (14:31)
[2020-03-20 15:10] VITALS: BP 162/89
== END 2020-03-20 15:11 | disposition home or self-care (01) ==
LOC: ER 10:30
DX: I12.0 Hypertensive chronic kidney disease with stage 5 chronic kidney disease or end stage renal disease (principal); E11.22 Type 2 diabetes mellitus with diabetic chronic kidney disease; N18.6 End stage renal disease; Z99.2 Dependence on renal dialysis; R06.02 Shortness of breath; R94.31 Abnormal electrocardiogram [ECG] [EKG]; E78.5 Hyperlipidemia, unspecified
CPT/HCPCS: 36415; 71045; 80053; 82550; 82553; 84484; 85025; 85610; 85730; 93005; 99283; J0360

== ENCOUNTER 2020-04-13 23:25 | Emergency (ER) | payer MEDICARE ==
[~2020-04-13] VITALS: Ht 165.1 cm; Wt 103.4 kg
[2020-04-14] MEDS ORDERED: PIPERACILLIN/TAZO 2.25 GM 50 ML IV ONE
[2020-04-14] MEDS ORDERED: VANCOMYCIN 1GM/NS 250 ML 250 ML IV ONE
[2020-04-14 00:06] LABS: BASOPHILS # (AUTO) 0.1 (0.0-0.1); BASOPHILS % 0.4 % (0.0-1.0); EOSINOPHILS # (AUTO) 0.1 (0.0-0.4); EOSINOPHILS % 1.2 % (0.0-6.0); HEMATOCRIT 27.6 % (38.2-49.6); LYMPHOCYTES # (AUTO) 0.9 (1.0-3.2); LYMPHOCYTES % 7.6 % (18.0-39.1); MEAN CORPUSCULAR HEMOGLOBIN 28.8 pg (28-32); MEAN CORPUSCULAR HGB CONC 32.6 g/dL (31-35); MEAN CORPUSCULAR VOLUME 88.2 fL (81-99); MONOCYTES # (AUTO) 0.9 (0.2-0.8); MONOCYTES % 7.6 % (4.4-11.3); NEUTROPHILS # (AUTO) 9.5 (2.1-6.9); NEUTROPHILS % 82.7 % (38.7-80.0); PLATELET COUNT 186 x10e3/uL (140-360); RED BLOOD COUNT 3.13 x10e6/uL (4.3-5.7); RED CELL DISTRIBUTION WIDTH 14.6 % (11.7-14.4)
[2020-04-14 00:24] LABS: ALANINE AMINOTRANSFERASE < 6 IU/L (0-55); ALBUMIN 4.1 g/dL (3.5-5.0); ALBUMIN/GLOBULIN RATIO 1.2 (0.8-2.0); ALKALINE PHOSPHATASE 78 IU/L (40-150); ANION GAP 18.8 mmol/L (8-16); BLOOD UREA NITROGEN 39 mg/dL (7-26); BUN/CREATININE RATIO 4 (6-25); CALCIUM 10.9 mg/dL (8.4-10.2); CARBON DIOXIDE 25 mmol/L (22-29); CHLORIDE 96 mmol/L (98-107); CREATININE, SERUM 10.83 mg/dL (0.72-1.25); EST GLOMERULAR FILTRATION RATE 5 ML/MIN (60-); GLUCOSE 116 mg/dL (74-118); POTASSIUM 3.8 mmol/L (3.5-5.1); SODIUM 136 mmol/L (136-145)
[2020-04-14] MEDS ORDERED: ACETAMINOPHEN 325 MG TAB PO ONE (00:30)
[2020-04-14] MEDS ORDERED: PIPERACILLIN/TAZOBACTAM 2.25 GM in SODIUM CHLORIDE 0.9% 50ML 50 ML IV ONE (00:30)
[2020-04-14 03:38] VITALS: BP 125/68
== END 2020-04-14 03:20 | disposition home or self-care (01) ==
LOC: ER 23:38
DX: R50.9 Fever, unspecified (principal); Z98.890 Other specified postprocedural states; I10 Essential (primary) hypertension; E11.9 Type 2 diabetes mellitus without complications; E78.5 Hyperlipidemia, unspecified; N18.9 Chronic kidney disease, unspecified; I89.0 Lymphedema, not elsewhere classified; Z11.52 Encounter for screening for COVID-19
CPT/HCPCS: 36415; 71045; 80053; 83605; 85025; 87040; 99283; J2543; J3370; U0002; 99284

== ENCOUNTER 2020-05-01 14:31 | Emergency (ER) | payer MEDICARE ==
[~2020-05-01] VITALS: Ht 165.1 cm; Wt 103.4 kg
[2020-05-01] MEDS ORDERED: ASPIRIN 81 MG CHEW TAB PO ONE (15:00)
[2020-05-01 15:10] LABS: BASOPHILS # (AUTO) 0.1 (0.0-0.1); BASOPHILS % 0.8 % (0.0-1.0); EOSINOPHILS # (AUTO) 0.2 (0.0-0.4); EOSINOPHILS % 3.2 % (0.0-6.0); HEMATOCRIT 28.5 % (38.2-49.6); HEMOGLOBIN 9.1 g/dL (14.0-18.0); LYMPHOCYTES # (AUTO) 0.7 (1.0-3.2); LYMPHOCYTES % 10.9 % (18.0-39.1); MEAN CORPUSCULAR HEMOGLOBIN 28.2 pg (28-32); MEAN CORPUSCULAR HGB CONC 31.9 g/dL (31-35); MEAN CORPUSCULAR VOLUME 88.2 fL (81-99); MONOCYTES # (AUTO) 0.5 (0.2-0.8); MONOCYTES % 7.6 % (4.4-11.3); NEUTROPHILS # (AUTO) 4.7 (2.1-6.9); PLATELET COUNT 191 x10e3/uL (140-360); RED BLOOD COUNT 3.23 x10e6/uL (4.3-5.7)
[2020-05-01 15:28] LABS: ALBUMIN 3.7 g/dL (3.5-5.0); ALBUMIN/GLOBULIN RATIO 0.9 (0.8-2.0); ANION GAP 26.3 mmol/L (8-16); CREATININE, SERUM 22.9 mg/dL (0.72-1.25); POTASSIUM 5.3 mmol/L (3.5-5.1)
[2020-05-01 15:35] LABS: CREATINE KINASE MB 1.3 ng/mL (0-5.0)
[2020-05-01] MEDS ORDERED: HEPARIN SOD (PORCINE) 1000 UNIT/ML SDV ONE (23:47)
[2020-05-02] MEDS ORDERED: HEPARIN SOD (PORCINE) 5,000 UNIT/ML VIAL INJ ONE (00:15)
[2020-05-02 00:24] VITALS: BP 144/79
[2020-05-02] MEDS ORDERED: HEPARIN SOD (PORCINE) 1000 UNIT/ML SDV IV PRN (11:30)
[2020-05-02] MEDS ORDERED: ALBUMIN 25% 12.5GM 0.25 GM/ML BTL IV PRN (11:30)
[2020-05-02] MEDS ORDERED: SODIUM CHLORIDE 0.9% 250ML 500 ML IV PRN (11:30)
[2020-05-02] MEDS ORDERED: SODIUM CHLORIDE 0.9% 1000ML 2,000 ML IV PRN (11:30)
== END 2020-05-01 22:00 | disposition home or self-care (01) ==
LOC: ER 14:44 → ERHOLD 16:02 → UNDOADMOB 16:02 → ER 22:00
DX: U07.1 COVID-19 (principal); R06.02 Shortness of breath; E87.70 Fluid overload, unspecified; I12.0 Hypertensive chronic kidney disease with stage 5 chronic kidney disease or end stage renal disease; E11.22 Type 2 diabetes mellitus with diabetic chronic kidney disease; N18.6 End stage renal disease; Z99.2 Dependence on renal dialysis; E78.5 Hyperlipidemia, unspecified
CPT/HCPCS: 36415; 71045; 80053; 82550; 82553; 83735; 84484; 85025; 93005; 99284; J1644; U0002